=== PATIENT | female | born 1965 | race African-American/Black ===

== ENCOUNTER 2017-07-04 18:01 | Inpatient (IN) | payer OTHER ==
[~2017-07-04] VITALS: Ht 167.6 cm; Wt 65.3 kg
[~2017-07-04 18:01] MED LIST: DOCU-138 PO; DULO60CA44 PO; GABA300C PO; INSU100C3 SQ; LEVVL SQ; LIP40 PO; LOSA50TA20 PO; TEMA30CA PO; TRAZ-129 PO
[2017-07-04] MEDS ORDERED: ONDANSETRON HCL 4MG/2ML VIAL IV STA (19:15)
[2017-07-04] MEDS ORDERED: ACETAMINOPHEN 325MG TABLET PO STA (19:15)
[2017-07-04] MEDS ORDERED: SODIUM CHLORIDE 0.9% 1000ML BAG (SEPSIS BOLUS) IV ONE (19:15)
[2017-07-04] MEDS ORDERED: LEVOFLOXACIN 750MG PREMIX 150 ML IV ONE (19:15)
[2017-07-04] MEDS ORDERED: FENTANYL CITRATE/PF 50MCG/ML 2ML VIAL IV NR (19:30)
[2017-07-04 19:50] LABS: HEMATOCRIT. 35.3 % (36.0-48.0); HEMOGLOBIN. 11.8 g/dL (12.0-16.0); MEAN CORPUSCULAR HEMOGLOBIN 30.1 pg (28.0-32.0); MEAN CORPUSCULAR VOLUME 89.9 fL (81.0-99.0); MEAN PLATELET VOLUME 8.4 fl (7.4-10.4); PLATELET 284 x1000/uL (130-400); RED BLOOD CELL COUNT 3.93 mill/uL (4.2-5.4)
[2017-07-04 19:56] LABS: CARBON DIOXIDE 25 mEq/L (21-32); CHLORIDE 105 mEq/L (98-107)
[2017-07-04 19:57] LABS: PROTHROMBIN TIME 10.8 sec (9.4-11.6)
[2017-07-04 20:00] LABS: BG BASE EXCESS 1.5 mmol/L (-2.0-2.0); BG CARBOXYHEMOGLOBIN 0.4 % (0.5-1.5); BG FRACTION INSPIRED OXYGEN 21; BG HCO3 ACT 24.5 mmol/L (22.0-26.0); BG METHEMOGLOBIN 0.3 % (0.0-1.5); BG OXYHEMOGLOBIN 97.3 % (94.0-97.0); BG PCO2 33.5 mmHg (35.0-45.0); BG PH 7.482 (7.350-7.450); BG PO2 99.4 mmHg (75.0-100.0); BG SAMPLE SITE RIGHT RADIAL; BG TOTAL HEMOGLOBIN 12.1 g/dL (12.0-18.0); BG VENT MODE ROOM AIR
[2017-07-04 20:02] LABS: BETA HYDROXYBUTYRATE 0.1 mMol/L (0.0-0.3)
[2017-07-04 20:03] LABS: TROPONIN I < 0.02 ng/mL (0.00-0.04)
[2017-07-04 21:35] LABS: PLATELET ESTIMATE NORMAL
[2017-07-04 23:11] LABS: CLARITY URINE CLOUDY (CLEAR); COLOR URINE YELLOW (YELLOW); GLUCOSE URINE 3+ (NEGATIVE); KETONES URINE TRACE (NEGATIVE); LEUKOCYTE ESTERASE URINE 1+ (NEGATIVE); NITRITE URINE NEGATIVE (NEGATIVE); OCCULT BLOOD URINE 2+ (NEGATIVE); PH URINE 5.5 (4.5-8.0); PROTEIN URINE 4+ (NEGATIVE); SPECIFIC GRAVITY URINE 1.023 (1.005-1.030); UROBILINOGEN URINE 0.2 E.U./dL (0.2-1.0)
[2017-07-05 03:45] VITALS: BP 118/71
[2017-07-05 04:00] VITALS: BP 118/71
[2017-07-05] MEDS ORDERED: DULO30CA2 PO (04:18)
[2017-07-05] MEDS ORDERED: CLON1TAB4 PO (04:20)
[2017-07-05] MEDS ORDERED: OXYB5TAB11 PO (04:22)
[2017-07-05] MEDS ORDERED: DEXTROSE 50% WATER 50ML SYRINGE IV PRN (04:30)
[2017-07-05] MEDS ORDERED: SODIUM CHLORIDE 0.9% 1,000 ML IV SCH (04:30)
[2017-07-05] MEDS ORDERED: KETOROLAC 30MG/ML VIAL IV PRN (04:30)
[2017-07-05] MEDS ORDERED: ONDANSETRON HCL 4MG/2ML VIAL IV PRN (04:30)
[2017-07-05] MEDS ORDERED: CEFEPIME 1,000 MG in DEXTROSE 5% WATER 50 ML IV SCH (06:00)
[2017-07-05] MEDS: BLOOD SUGAR DIAGNOSTIC STRIP TEST SCH ×4 (06:12→20:45)
[2017-07-05] MEDS: INSULIN LISPRO 100 UNITS/ML SUBCUT SCH ×5 (06:51→21:24)
[2017-07-05 08:00] VITALS: BP 139/74
[2017-07-05] MEDS: CEFEPIME 1,000 MG in DEXTROSE 5% WATER 50 ML IV SCH ×2 (09:20→21:27)
[2017-07-05] MEDS: SODIUM CHLORIDE 0.9% 1,000 ML IV SCH ×2 (09:21→21:10)
[2017-07-05 12:28] VITALS: BP 125/97
[2017-07-05 12:40] LABS: HEMATOCRIT. 31.2 % (36.0-48.0); HEMOGLOBIN. 10.2 g/dL (12.0-16.0); MEAN CORPUSCULAR HEMOGLOBIN 29.4 pg (28.0-32.0); MEAN CORPUSCULAR VOLUME 90.2 fL (81.0-99.0); MEAN PLATELET VOLUME 8.6 fl (7.4-10.4); PLATELET 228 x1000/uL (130-400); RED BLOOD CELL COUNT 3.46 mill/uL (4.2-5.4); RED CELL DISTRIBUTION WIDTH 13.9 % (11.6-14.6)
[2017-07-05 14:55] LABS: PLATELET ESTIMATE NORMAL
[2017-07-05 16:00] VITALS: BP 102/65
[2017-07-05] MEDS: GABAPENTIN 300MG CAPSULE PO SCH (17:40)
[2017-07-05] MEDS: CLONAZEPAM 1MG TABLET PO SCH (17:40)
[2017-07-05] MEDS: DOCUSATE SODIUM 100MG CAPSULE PO SCH (17:41)
[2017-07-05 20:00] VITALS: BP 136/84
[2017-07-05] MEDS ORDERED: HYDR-4134 PO (20:00)
[2017-07-05] MEDS ORDERED: TAMS0.4C31 PO (20:01)
[2017-07-05] MEDS ORDERED: ZOLP10TA6 PO (20:03)
[2017-07-05] MEDS ORDERED: METO10TA3 PO (20:06)
[2017-07-05] MEDS: ACETAMINOPHEN 325MG TABLET PO PRN (21:09)
[2017-07-05] MEDS: ATORVASTATIN CALCIUM 40MG TABLET PO SCH (21:10)
[2017-07-05] MEDS: TRAZODONE HCL 50MG TABLET PO SCH (21:11)
[2017-07-05] MEDS: INSULIN DETEMIR UD 100 UNITS/ML SYR SUBCUT SCH (21:25)
[2017-07-06] VITALS: BP 92/59
[2017-07-06 04:00] VITALS: BP 117/77
[2017-07-06] MEDS: SODIUM CHLORIDE 0.9% 1,000 ML IV SCH ×3 (04:10→23:55)
[2017-07-06] MEDS: BLOOD SUGAR DIAGNOSTIC STRIP TEST SCH ×4 (06:50→21:01)
[2017-07-06] MEDS: INSULIN LISPRO 100 UNITS/ML SUBCUT SCH ×6 (06:53→21:21)
[2017-07-06 07:02] LABS: BASOPHILS % 0.5 % (0.0-2.0); EOSINOPHILS % 0.8 % (0.0-5.0); HEMATOCRIT. 31.3 % (36.0-48.0); HEMOGLOBIN. 10.2 g/dL (12.0-16.0); LYMPHOCYTES % 9.1 % (20.0-50.0); MEAN CORPUSCULAR HEMOGLOBIN 29.5 pg (28.0-32.0); MEAN CORPUSCULAR VOLUME 90.4 fL (81.0-99.0); MEAN PLATELET VOLUME 8.9 fl (7.4-10.4); MONOCYTES % 5.3 % (2.0-8.0); NEUTROPHILS % 84.3 % (40.0-76.0); PLATELET 225 x1000/uL (130-400); RED BLOOD CELL COUNT 3.46 mill/uL (4.2-5.4)
[2017-07-06 08:00] VITALS: BP 118/69
[2017-07-06] MEDS: GABAPENTIN 300MG CAPSULE PO SCH ×3 (10:02→16:50)
[2017-07-06] MEDS: CEFEPIME 1,000 MG in DEXTROSE 5% WATER 50 ML IV SCH ×2 (10:02→21:04)
[2017-07-06] MEDS: DULOXETINE HCL 30MG DR CAPSULE PO SCH (10:02)
[2017-07-06] MEDS: DOCUSATE SODIUM 100MG CAPSULE PO SCH ×2 (10:02→16:50)
[2017-07-06] MEDS: INSULIN DETEMIR UD 100 UNITS/ML SYR SUBCUT SCH ×2 (10:05→22:03)
[2017-07-06 12:00] VITALS: BP 142/88
[2017-07-06 16:00] VITALS: BP 145/88
[2017-07-06] MEDS: CLONAZEPAM 1MG TABLET PO SCH (16:50)
[2017-07-06 20:00] VITALS: BP 146/88
[2017-07-06] MEDS: TRAZODONE HCL 50MG TABLET PO SCH (21:04)
[2017-07-06] MEDS: ACETAMINOPHEN 325MG TABLET PO PRN (21:04)
[2017-07-06] MEDS: ATORVASTATIN CALCIUM 40MG TABLET PO SCH (21:04)
[2017-07-07] VITALS: BP 118/71
[2017-07-07 04:00] VITALS: BP 143/89
[2017-07-07 06:05] LABS: BASOPHILS % 0.3 % (0.0-2.0); EOSINOPHILS % 2.5 % (0.0-5.0); HEMATOCRIT. 31.9 % (36.0-48.0); HEMOGLOBIN. 10.5 g/dL (12.0-16.0); LYMPHOCYTES % 18.9 % (20.0-50.0); MEAN CORPUSCULAR HEMOGLOBIN 29.7 pg (28.0-32.0); MEAN CORPUSCULAR VOLUME 90.5 fL (81.0-99.0); MEAN PLATELET VOLUME 8.6 fl (7.4-10.4); MONOCYTES % 9.1 % (2.0-8.0); NEUTROPHILS % 69.2 % (40.0-76.0); PLATELET 248 x1000/uL (130-400); RED BLOOD CELL COUNT 3.53 mill/uL (4.2-5.4); RED CELL DISTRIBUTION WIDTH 13.9 % (11.6-14.6)
[2017-07-07] MEDS: INSULIN LISPRO 100 UNITS/ML SUBCUT SCH ×6 (06:26→16:58)
[2017-07-07] MEDS: BLOOD SUGAR DIAGNOSTIC STRIP TEST SCH ×3 (06:26→16:29)
[2017-07-07 08:00] VITALS: BP 139/87
[2017-07-07] MEDS: DOCUSATE SODIUM 100MG CAPSULE PO SCH ×2 (08:48→16:56)
[2017-07-07] MEDS: CEFEPIME 1,000 MG in DEXTROSE 5% WATER 50 ML IV SCH (08:48)
[2017-07-07] MEDS: GABAPENTIN 300MG CAPSULE PO SCH ×3 (08:48→16:55)
[2017-07-07] MEDS: DULOXETINE HCL 30MG DR CAPSULE PO SCH (08:48)
[2017-07-07] MEDS: INSULIN DETEMIR UD 100 UNITS/ML SYR SUBCUT SCH (10:15)
[2017-07-07] MEDS: SODIUM CHLORIDE 0.9% 1,000 ML IV SCH (10:16)
[2017-07-07 12:00] VITALS: BP 158/89
[2017-07-07 16:00] VITALS: BP 177/106
[2017-07-07] MEDS ORDERED: HYDRALAZINE 20MG/ML VIAL IV NR (16:00)
[2017-07-07] MEDS: CLONAZEPAM 1MG TABLET PO SCH (16:56)
[2017-07-07 17:09] VITALS: BP 142/78
== END 2017-07-07 18:20 | disposition home or self-care (01) | DRG 720 ==
LOC: ER 18:01 → EDBEDREQ 19:41 → 5WST 07-05 00:46 → EDBEDREQ 07-05 00:47 → EDBEDREQSVC 07-05 00:47 → ENRESERV 07-05 01:19
PROVIDERS: ADMIT Internal Medicine; ATTEND Internal Medicine
DX: A41.9 Sepsis, unspecified organism (principal); N17.0 Acute kidney failure with tubular necrosis; I10 Essential (primary) hypertension; J44.9 Chronic obstructive pulmonary disease, unspecified; N12 Tubulo-interstitial nephritis, not specified as acute or chronic; B96.89 Other specified bacterial agents as the cause of diseases classified elsewhere; E11.9 Type 2 diabetes mellitus without complications; N39.0 Urinary tract infection, site not specified; I25.10 Atherosclerotic heart disease of native coronary artery without angina pectoris; I25.2 Old myocardial infarction; Z88.6 Allergy status to analgesic agent; Z79.4 Long term (current) use of insulin; Z79.899 Other long term (current) drug therapy; E44.0 Moderate protein-calorie malnutrition
CPT/HCPCS: 36415; 36600; 71010; 74176; 80048; 80053; 81001; 82010; 82375; 82805; 82962; 83605; 84484; 85025; 85610; 87040; 87077; 87086; 87186; 87804; 93005; 93970; 96361; 96365; 96375; 99285; J0360; J0692; J1815; J1885; J1956; J2405; J3010; J7030; J7060

== ENCOUNTER 2017-09-11 19:37 | Inpatient (IN) | payer MEDICAID, OTHER ==
[~2017-09-11] VITALS: Ht 161.3 cm; Wt 66.2 kg
[~2017-09-11 19:37] MED LIST changes: +CLON1TAB4 PO; +DULO30CA2 PO; -DULO60CA44 PO; +HYDR-4134 PO; +METO10TA3 PO; +OXYB5TAB11 PO; +TAMS0.4C31 PO; +ZOLP10TA6 PO
[2017-09-11] MEDS ORDERED: SODIUM CHLORIDE 0.9% 1,000 ML IV ONE (21:21)
[2017-09-11] MEDS ORDERED: ONDANSETRON HCL 4MG/2ML VIAL IV ONE (21:30)
[2017-09-11] MEDS ORDERED: FENTANYL CITRATE/PF 50MCG/ML 2ML VIAL IV ONE (21:30)
[2017-09-11 21:45] LABS: HEMATOCRIT. 38.7 % (36.0-48.0); HEMOGLOBIN. 12.4 g/dL (12.0-16.0); MEAN CORPUSCULAR HEMOGLOBIN 30.3 pg (28.0-32.0); MEAN CORPUSCULAR VOLUME 94.6 fL (81.0-99.0); MEAN PLATELET VOLUME 8.8 fl (7.4-10.4); PLATELET 384 x1000/uL (130-400); RED BLOOD CELL COUNT 4.09 mill/uL (4.2-5.4); RED CELL DISTRIBUTION WIDTH 14.6 % (11.6-14.6)
[2017-09-11 21:49] LABS: HCG SCREEN NEGATIVE
[2017-09-11 22:02] LABS: AMYLASE 41 IU/L (25-115); CARBON DIOXIDE 13 mEq/L (21-32); CHLORIDE 99 mEq/L (98-107); TROPONIN I 0.02 ng/mL (0.00-0.04)
[2017-09-11 22:02] LABS: BG BASE EXCESS -14.3 mmol/L (-2.0-2.0); BG CARBOXYHEMOGLOBIN 0.1 % (0.5-1.5); BG DEOXYHEMOGLOBIN 2.9 % (0.0-5.0); BG FRACTION INSPIRED OXYGEN 21; BG HCO3 ACT 11.3 mmol/L (22.0-26.0); BG METHEMOGLOBIN 0.6 % (0.0-1.5); BG OXYGEN SATURATION 97.1 % (92.0-98.5); BG OXYHEMOGLOBIN 96.4 % (94.0-97.0); BG PCO2 26.4 mmHg (35.0-45.0); BG PH 7.249 (7.350-7.450); BG PO2 101.5 mmHg (75.0-100.0); BG SAMPLE SITE RIGHT BRACHIAL; BG TOTAL HEMOGLOBIN 13.2 g/dL (12.0-18.0); BG VENT MODE ROOM AIR
[2017-09-11 22:06] LABS: BETA HYDROXYBUTYRATE 8.2 mMol/L (0.0-0.3)
[2017-09-11 22:50] LABS: CLARITY URINE CLEAR (CLEAR); COLOR URINE YELLOW (YELLOW); KETONES URINE 4+ (NEGATIVE); LEUKOCYTE ESTERASE URINE NEGATIVE (NEGATIVE); NITRITE URINE NEGATIVE (NEGATIVE); OCCULT BLOOD URINE 1+ (NEGATIVE); PROTEIN URINE NEGATIVE (NEGATIVE); SPECIFIC GRAVITY URINE 1.026 (1.005-1.030); UROBILINOGEN URINE 0.2 E.U./dL (0.2-1.0)
[2017-09-11 22:53] LABS: PLATELET ESTIMATE NORMAL
[2017-09-11] MEDS ORDERED: SODIUM CHLORIDE 0.9% 1,000 ML IV STA (22:59)
[2017-09-12] VITALS (8 sets, daily range): BP systolic 118–158; BP diastolic 67–107
[2017-09-12] MEDS ORDERED: INSULIN REGULAR (DRIP) 100 UNITS in SODIUM CHLORIDE 0.9% 100 ML IV ONE (00:30)
[2017-09-12 00:37] LABS: CARBON DIOXIDE 11 mEq/L (21-32); CHLORIDE 101 mEq/L (98-107); PHOSPHORUS 6.4 mg/dL (2.5-4.9)
[2017-09-12] MEDS ORDERED: SODIUM CHLORIDE 0.9% 1,000 ML IV ONE (00:39)
[2017-09-12] MEDS ORDERED: ONDANSETRON HCL 4MG/2ML VIAL IV ONE (00:45)
[2017-09-12 02:17] LABS: PHOSPHORUS 6.3 mg/dL (2.5-4.9)
[2017-09-12] MEDS ORDERED: INSULIN REGULAR (DRIP) 100 UNITS in SODIUM CHLORIDE 0.9% 99 ML IV SCH (02:30)
[2017-09-12 04:32] LABS: PHOSPHORUS 4.2 mg/dL (2.5-4.9)
[2017-09-12] MEDS ORDERED: SODIUM CHLORIDE 0.45% 1,000 ML IV SCH (06:16)
[2017-09-12] MEDS ORDERED: HYDROCODONE/ACETAMINOPHEN 10/325MG TABLET PO PRN (06:30)
[2017-09-12] MEDS ORDERED: ACETAMINOPHEN 325MG TABLET PO PRN (06:30)
[2017-09-12] MEDS ORDERED: MAGNESIUM/ALUMINUM HYDROXIDE/SIMETHICONE 30ML UDC PO PRN (06:30)
[2017-09-12] MEDS ORDERED: LORAZEPAM 2MG/ML CPJ IV PRN (06:30)
[2017-09-12] MEDS ORDERED: IPRATROPIUM/ALBUTEROL 0.5-3(2.5)MG/3ML NEB INH PRN (06:30)
[2017-09-12] MEDS: CLONIDINE 0.1MG TABLET PO PRN ×2 (11:28→19:05)
[2017-09-12] MEDS ORDERED: DIPHENHYDRAMINE 50MG/ML VIAL IV PRN (14:00)
[2017-09-12] MEDS ORDERED: NA PHOS,M-B/NA PHOS,DI-BA ENEMA 118ML PR PRN (14:00)
[2017-09-12] MEDS: SODIUM CHLORIDE 0.45% 1,000 ML IV SCH ×2 (14:04→22:21)
[2017-09-12] MEDS ORDERED: LORAZEPAM 0.5MG TABLET PO PRN (14:30)
[2017-09-12] MEDS: ASPIRIN 81MG EC TABLET PO SCH (14:57)
[2017-09-12] MEDS: HYDRALAZINE HCL 50MG TABLET PO SCH ×2 (14:57→22:21)
[2017-09-12] MEDS: LOSARTAN POTASSIUM 50 MG TABLET PO SCH (14:57)
[2017-09-12] MEDS: ENOXAPARIN 40MG/0.4ML SYR SUBCUT SCH (14:59)
[2017-09-12] MEDS ORDERED: GUAIFENESIN 200MG/10ML SUGAR FREE UDC PO PRN (15:00)
[2017-09-12] MEDS ORDERED: LEVOFLOXACIN 500MG PREMIX 100 ML IV NR (16:00)
[2017-09-12] MEDS: DOCUSATE SODIUM 100MG CAPSULE PO PRN (16:44)
[2017-09-12] MEDS ORDERED: IPRATROPIUM/ALBUTEROL 0.5-3(2.5)MG/3ML NEB HHN PRN (17:30)
[2017-09-12] MEDS ORDERED: LEVOFLOXACIN 250MG PREMIX 50 ML IV SCH (18:00)
[2017-09-12] MEDS ORDERED: DEXTROSE 50% WATER 50ML SYRINGE IV PRN (18:30)
[2017-09-12] MEDS: ONDANSETRON HCL 4MG/2ML VIAL IV PRN (19:04)
[2017-09-12] MEDS: INSULIN LISPRO 100 UNITS/ML SUBCUT SCH ×2 (19:06→22:22)
[2017-09-12] MEDS: IPRATROPIUM/ALBUTEROL 0.5-3(2.5)MG/3ML NEB HHN SCH (19:47)
[2017-09-12] MEDS: BUDESONIDE 0.5MG/2ML NEB HHN SCH (20:13)
[2017-09-12] MEDS: BLOOD SUGAR DIAGNOSTIC STRIP TEST SCH (22:15)
[2017-09-12] MEDS: ATORVASTATIN CALCIUM 20MG TABLET PO SCH (22:21)
[2017-09-13] VITALS (15 sets, daily range): BP systolic 101–156; BP diastolic 60–94
[2017-09-13] MEDS: HYDRALAZINE HCL 50MG TABLET PO SCH ×3 (06:34→21:41)
[2017-09-13] MEDS: SODIUM CHLORIDE 0.45% 1,000 ML IV SCH ×3 (06:34→23:55)
[2017-09-13] MEDS: DOCUSATE SODIUM 100MG CAPSULE PO PRN (06:35)
[2017-09-13] MEDS: BUDESONIDE 0.5MG/2ML NEB HHN SCH ×2 (07:42→22:06)
[2017-09-13] MEDS: IPRATROPIUM/ALBUTEROL 0.5-3(2.5)MG/3ML NEB HHN SCH ×4 (07:43→21:59)
[2017-09-13] MEDS: BLOOD SUGAR DIAGNOSTIC STRIP TEST SCH ×4 (07:55→21:00)
[2017-09-13] MEDS: ASPIRIN 81MG EC TABLET PO SCH (09:06)
[2017-09-13] MEDS: ENOXAPARIN 40MG/0.4ML SYR SUBCUT SCH (09:06)
[2017-09-13] MEDS: LOSARTAN POTASSIUM 50 MG TABLET PO SCH (09:06)
[2017-09-13] MEDS: LACTULOSE 20G/30ML UDC PO PRN (09:06)
[2017-09-13] MEDS: INSULIN DETEMIR UD 100 UNITS/ML SYR SUBCUT SCH (09:08)
[2017-09-13] MEDS: INSULIN LISPRO 100 UNITS/ML SUBCUT SCH ×4 (09:08→21:47)
[2017-09-13 11:37] LABS: BASOPHILS % 0.6 % (0.0-2.0); EOSINOPHILS % 0.2 % (0.0-5.0); HEMATOCRIT. 31.9 % (36.0-48.0); HEMOGLOBIN. 10.5 g/dL (12.0-16.0); MEAN CORPUSCULAR HEMOGLOBIN 30.4 pg (28.0-32.0); MEAN CORPUSCULAR VOLUME 92.7 fL (81.0-99.0); MEAN PLATELET VOLUME 8.5 fl (7.4-10.4); MONOCYTES % 2.7 % (2.0-8.0); NEUTROPHILS % 81.5 % (40.0-76.0); PLATELET 296 x1000/uL (130-400); RED BLOOD CELL COUNT 3.44 mill/uL (4.2-5.4); RED CELL DISTRIBUTION WIDTH 14.7 % (11.6-14.6)
[2017-09-13 12:10] LABS: CARBON DIOXIDE 17 mEq/L (21-32); CHLORIDE 104 mEq/L (98-107); HDL CHOLESTEROL 70 mg/dL (40-59); LDL CHOLESTEROL 128 mg/dL (5-100); T4 FREE 1.22 ng/dL (0.76-1.46)
[2017-09-13] MEDS: DILTIAZEM HCL 60MG TABLET PO SCH ×2 (14:21→21:42)
[2017-09-13] MEDS ORDERED: MAGNESIUM 1 G PREMIX 100 ML IV NR (14:30)
[2017-09-13] MEDS ORDERED: LEVOFLOXACIN 250MG PREMIX 50 ML IV SCH ×2 (16:00)
[2017-09-13] MEDS: ATORVASTATIN CALCIUM 20MG TABLET PO SCH (21:41)
[2017-09-14] VITALS (9 sets, daily range): BP systolic 137–187; BP diastolic 63–105
[2017-09-14 06:06] LABS: BASOPHILS % 0.7 % (0.0-2.0); HEMATOCRIT. 31.7 % (36.0-48.0); HEMOGLOBIN. 10.6 g/dL (12.0-16.0); LYMPHOCYTES % 37.3 % (20.0-50.0); MEAN CORPUSCULAR HEMOGLOBIN 30.7 pg (28.0-32.0); MEAN CORPUSCULAR VOLUME 91.6 fL (81.0-99.0); MEAN PLATELET VOLUME 8.8 fl (7.4-10.4); MONOCYTES % 4.3 % (2.0-8.0); NEUTROPHILS % 56.7 % (40.0-76.0); PLATELET 287 x1000/uL (130-400); RED BLOOD CELL COUNT 3.47 mill/uL (4.2-5.4); RED CELL DISTRIBUTION WIDTH 14.9 % (11.6-14.6)
[2017-09-14] MEDS: CLONIDINE 0.1MG TABLET PO PRN (06:24)
[2017-09-14] MEDS: HYDRALAZINE HCL 50MG TABLET PO SCH ×2 (06:24→14:14)
[2017-09-14] MEDS: DILTIAZEM HCL 60MG TABLET PO SCH ×2 (06:24→14:14)
[2017-09-14] MEDS: SODIUM CHLORIDE 0.45% 1,000 ML IV SCH ×2 (06:25→14:04)
[2017-09-14 06:30] LABS: CHLORIDE 103 mEq/L (98-107)
[2017-09-14 06:47] LABS: CARBON DIOXIDE 21 mEq/L (21-32)
[2017-09-14] MEDS: INSULIN LISPRO 100 UNITS/ML SUBCUT SCH ×2 (06:59→13:40)
[2017-09-14] MEDS: BLOOD SUGAR DIAGNOSTIC STRIP TEST SCH ×2 (06:59→12:45)
[2017-09-14] MEDS: IPRATROPIUM/ALBUTEROL 0.5-3(2.5)MG/3ML NEB HHN SCH ×3 (07:56→15:39)
[2017-09-14] MEDS: BUDESONIDE 0.5MG/2ML NEB HHN SCH (07:56)
[2017-09-14] MEDS: LACTULOSE 20G/30ML UDC PO PRN (09:18)
[2017-09-14] MEDS: DOCUSATE SODIUM 100MG CAPSULE PO PRN (09:18)
[2017-09-14] MEDS: LOSARTAN POTASSIUM 50 MG TABLET PO SCH (09:19)
[2017-09-14] MEDS: ASPIRIN 81MG EC TABLET PO SCH (09:19)
[2017-09-14] MEDS: ENOXAPARIN 40MG/0.4ML SYR SUBCUT SCH (09:20)
[2017-09-14] MEDS: INSULIN DETEMIR UD 100 UNITS/ML SYR SUBCUT SCH (09:22)
[2017-09-14] MEDS: ONDANSETRON HCL 4MG/2ML VIAL IV PRN (09:53)
[2017-09-14] MEDS ORDERED: LEVOFLOXACIN 500MG PREMIX 100 ML IV SCH (14:00)
[2017-09-14] MEDS ORDERED: AMLODIPINE 5MG TABLET PO SCH (21:00)
== END 2017-09-14 16:30 | disposition home or self-care (01) | DRG 420 ==
LOC: ER 20:07 → 5EST 09-12 00:57 → EDBEDREQ 09-12 01:25 → EDBEDREQSVC 09-12 12:50 → EDBEDREQTM 09-12 12:50 → ENRESERV 09-12 12:53
PROVIDERS: ADMIT Internal Medicine; ATTEND Internal Medicine
DX: E11.10 Type 2 diabetes mellitus with ketoacidosis without coma (principal); E87.2 Acidosis; E87.0 Hyperosmolality and hypernatremia; I13.0 Hypertensive heart and chronic kidney disease with heart failure and stage 1 through stage 4 chronic kidney disease, or unspecified chronic kidney disease; I50.9 Heart failure, unspecified; K31.84 Gastroparesis; J70.5 Respiratory conditions due to smoke inhalation; N18.3 Chronic kidney disease, stage 3 (moderate); E78.5 Hyperlipidemia, unspecified; E78.00 Pure hypercholesterolemia, unspecified; E11.22 Type 2 diabetes mellitus with diabetic chronic kidney disease; E11.43 Type 2 diabetes mellitus with diabetic autonomic (poly)neuropathy; E86.0 Dehydration; I25.10 Atherosclerotic heart disease of native coronary artery without angina pectoris; F41.9 Anxiety disorder, unspecified; J44.9 Chronic obstructive pulmonary disease, unspecified; N39.0 Urinary tract infection, site not specified; T59.811A Toxic effect of smoke, accidental (unintentional), initial encounter; Z79.899 Other long term (current) drug therapy; Z79.4 Long term (current) use of insulin; Z82.49 Family history of ischemic heart disease and other diseases of the circulatory system; I25.2 Old myocardial infarction; Z83.3 Family history of diabetes mellitus; Z88.6 Allergy status to analgesic agent; Y92.89 Other specified places as the place of occurrence of the external cause
CPT/HCPCS: 36415; 36600; 71010; 76700; 80048; 80053; 80061; 81001; 82010; 82150; 82375; 82805; 82962; 83036; 83690; 83735; 84100; 84439; 84443; 84484; 84703; 85025; 93005; 93306; 94640; 94664; 96361; 96365; 96366; 96375; 96376; 99291; J1650; J1815; J1956; J2405; J3010; J3475; J7030; J7050; J7620; J7626

== ENCOUNTER 2019-03-03 17:42 | Emergency (ER) | payer MEDICAID ==
[~2019-03-03] VITALS: Ht 167.6 cm; Wt 73.0 kg
[~2019-03-03 17:42] MED LIST changes: +CLON1TAB12 PO; -CLON1TAB4 PO; -LOSA50TA20 PO; +LOSA50TA41 PO; -TRAZ-129 PO; +TRAZ-251 PO
[2019-03-03] MEDS ORDERED: MORPHINE SULFATE 4 MG/ML CPJ (NOT FOR IM USE) IV STA (18:09)
[2019-03-03] MEDS ORDERED: DIPHENHYDRAMINE 50MG/ML VIAL IV ONE (18:15)
[2019-03-03 19:07] LABS: BASOPHILS % 0.6 % (0.0-2.0); EOSINOPHILS % 1.1 % (0.0-5.0); HEMATOCRIT. 37.2 % (36.0-48.0); HEMOGLOBIN. 12.8 g/dL (12.0-16.0); LYMPHOCYTES % 16.9 % (20.0-50.0); MEAN CORPUSCULAR HEMOGLOBIN 31.3 pg (28.0-32.0); MEAN CORPUSCULAR VOLUME 91.2 fL (81.0-99.0); MEAN PLATELET VOLUME 8.1 fl (7.4-10.4); MONOCYTES % 3.3 % (2.0-8.0); NEUTROPHILS % 78.1 % (40.0-76.0); PLATELET 321 x1000/uL (130-400); RED BLOOD CELL COUNT 4.08 mill/uL (4.2-5.4); RED CELL DISTRIBUTION WIDTH 13.6 % (11.6-14.6)
[2019-03-03 19:08] LABS: CHLORIDE 105 mEq/L (98-107)
[2019-03-03 21:21] VITALS: BP 163/90
== END 2019-03-03 21:22 | disposition home or self-care (01) ==
LOC: ER 17:50
DX: E11.649 Type 2 diabetes mellitus with hypoglycemia without coma (principal); J44.9 Chronic obstructive pulmonary disease, unspecified; I10 Essential (primary) hypertension; Z86.73 Personal history of transient ischemic attack (TIA), and cerebral infarction without residual deficits; Z79.4 Long term (current) use of insulin; Z88.5 Allergy status to narcotic agent
CPT/HCPCS: 36415; 73502; 80053; 82962; 85025; 93005; 96374; 96375; 99284; J1200; J2270

== ENCOUNTER 2019-10-19 18:05 | Inpatient (IN) | payer MEDICAID ==
[~2019-10-19] VITALS: Ht 161.3 cm; Wt 67.2 kg
[~2019-10-19 18:05] MED LIST changes: -HYDR-4134 PO; -LOSA50TA41 PO; -OXYB5TAB11 PO; +OXYB5TAB16 PO
[2019-10-19] MEDS ORDERED: ONDANSETRON HCL 4MG/2ML INJ IV STA (18:47)
[2019-10-19] MEDS ORDERED: PIPERACILLIN/TAZ 3.375G PREMIX 50 ML IV ONE (19:00)
[2019-10-19] MEDS ORDERED: SODIUM CHLORIDE 0.9% 1000ML BAG (SEPSIS BOLUS) IV ONE (19:00)
[2019-10-19] MEDS ORDERED: VANCOMYCIN 1 G PREMIX 200 ML IV ONE (19:00)
[2019-10-19 19:08] LABS: BASOPHILS % 0.7 % (0.0-2.0); EOSINOPHILS % 0.7 % (0.0-5.0); HEMATOCRIT. 38.9 % (36.0-48.0); HEMOGLOBIN. 12.9 g/dL (12.0-16.0); MEAN CORPUSCULAR VOLUME 90.4 fL (81.0-99.0); MEAN PLATELET VOLUME 8.5 fl (7.4-10.4); MONOCYTES % 6.7 % (2.0-8.0); NEUTROPHILS % 82.9 % (40.0-76.0); PLATELET 305 x1000/uL (130-400); RED BLOOD CELL COUNT 4.31 mill/uL (4.2-5.4); RED CELL DISTRIBUTION WIDTH 13.4 % (11.6-14.6)
[2019-10-19 19:11] LABS: PROTHROMBIN TIME 10.1 sec (9.6-11.0)
[2019-10-19 19:18] LABS: CHLORIDE 103 mEq/L (98-107)
[2019-10-19 20:45] LABS: CLARITY URINE CLEAR (CLEAR); COLOR URINE YELLOW (YELLOW); KETONES URINE 2+ (NEGATIVE); LEUKOCYTE ESTERASE URINE NEGATIVE (NEGATIVE); NITRITE URINE NEGATIVE (NEGATIVE); OCCULT BLOOD URINE 2+ (NEGATIVE); PROTEIN URINE 3+ (NEGATIVE); UROBILINOGEN URINE 0.2 E.U./dL (0.2-1.0)
[2019-10-19] MEDS ORDERED: ONDANSETRON HCL 4MG/2ML INJ IV ONE (21:00)
[2019-10-19] MEDS ORDERED: DIPHENHYDRAMINE 50MG/ML VIAL IV ONE (21:00)
[2019-10-19] MEDS ORDERED: MORPHINE SULFATE 4 MG/ML CPJ (NOT FOR IM USE) IV ONE (21:00)
[2019-10-20] VITALS (16 sets, daily range): BP systolic 86–190; BP diastolic 48–98
[2019-10-20] MEDS ORDERED: INSULIN REGULAR 0.5UNIT/ML SYR(NEO) IV ONE
[2019-10-20] MEDS ORDERED: INSULIN REGULAR (HUMULIN R) 300UNITS/3ML SUBCUT ONE (00:15)
[2019-10-20] MEDS ORDERED: DEXTROSE 50% WATER 50ML SYRINGE IV PRN (01:45)
[2019-10-20] MEDS: METOPROLOL TARTRATE 50MG TABLET PO SCH ×2 (04:15→21:00)
[2019-10-20] MEDS: BLOOD SUGAR DIAGNOSTIC STRIP TEST SCH ×4 (06:17→20:37)
[2019-10-20] MEDS: INSULIN LISPRO 100 UNITS/ML SUBCUT SCH ×5 (06:26→21:00)
[2019-10-20] MEDS: DULOXETINE HCL 30MG DR CAPSULE PO SCH (08:31)
[2019-10-20] MEDS: OXYBUTYNIN CHLORIDE 5MG TABLET PO SCH ×2 (08:31→17:05)
[2019-10-20] MEDS: ATORVASTATIN CALCIUM 40MG TABLET PO SCH (08:31)
[2019-10-20] MEDS: DOCUSATE SODIUM 100MG CAPSULE PO SCH ×2 (08:31→17:05)
[2019-10-20] MEDS: GABAPENTIN 300MG CAPSULE PO SCH ×3 (08:31→17:05)
[2019-10-20] MEDS ORDERED: INSULIN DETEMIR U SQ SCH (09:00)
[2019-10-20] MEDS ORDERED: INSULIN GLARGINE UD 100 UNITS/ML SYR SUBCUT SCH (09:00)
[2019-10-20] MEDS ORDERED: CLONIDINE 0.1MG TABLET PO PRN (09:30)
[2019-10-20] MEDS ORDERED: LABE200T28 PO (10:34)
[2019-10-20] MEDS ORDERED: AMLO10TA80 PO (10:34)
[2019-10-20] MEDS ORDERED: ASPI-1158 PO (10:34)
[2019-10-20] MEDS ORDERED: INSU100V36 SQ (10:34)
[2019-10-20] MEDS ORDERED: MONT10TA24 PO (10:34)
[2019-10-20] MEDS ORDERED: BUPR1PAT2 TP (10:34)
[2019-10-20] MEDS ORDERED: LOSA100T32 PO (10:34)
[2019-10-20] MEDS ORDERED: TAMS-11 PO (10:34)
[2019-10-20] MEDS: SODIUM CHLORIDE 0.9% 1,000 ML IV SCH ×2 (11:10→20:37)
[2019-10-20] MEDS: METOCLOPRAMIDE HCL 10MG/2ML VIAL IV SCH ×2 (12:26→17:04)
[2019-10-20] MEDS: ENOXAPARIN 40MG/0.4ML SYR SUBCUT SCH (12:52)
[2019-10-20 13:24] LABS: BASOPHILS % 0.6 % (0.0-2.0); EOSINOPHILS % 0.3 % (0.0-5.0); HEMATOCRIT. 31.6 % (36.0-48.0); HEMOGLOBIN. 10.5 g/dL (12.0-16.0); LYMPHOCYTES % 17.9 % (20.0-50.0); MEAN CORPUSCULAR HEMOGLOBIN 30.2 pg (28.0-32.0); MEAN CORPUSCULAR VOLUME 90.9 fL (81.0-99.0); MEAN PLATELET VOLUME 8.9 fl (7.4-10.4); MONOCYTES % 10.2 % (2.0-8.0); PLATELET 227 x1000/uL (130-400); RED BLOOD CELL COUNT 3.48 mill/uL (4.2-5.4); RED CELL DISTRIBUTION WIDTH 13.7 % (11.6-14.6)
[2019-10-20] MEDS ORDERED: CLONAZEPAM 1MG TABLET PO SCH (17:00)
[2019-10-20] MEDS ORDERED: SODIUM CHLORIDE 0.9% 1,000 ML IV SCH (18:45)
[2019-10-20] MEDS ORDERED: LEVOFLOXACIN 500MG PREMIX 100 ML IV NR (20:00)
[2019-10-20] MEDS ORDERED: ACETAMINOPHEN 325MG TABLET PO PRN (20:15)
[2019-10-20] MEDS ORDERED: ACETAMINOPHEN 650MG SUPP PR PRN (20:15)
[2019-10-20] MEDS ORDERED: ATORVASTATIN CALCIUM 40MG TABLET PO SCH (21:00)
[2019-10-20] MEDS: AMLODIPINE 5MG TABLET PO SCH (21:00)
[2019-10-20] MEDS: INSULIN GLARGINE UD 100 UNITS/ML SYR SUBCUT SCH (22:00)
[2019-10-21] VITALS (7 sets, daily range): BP systolic 120–166; BP diastolic 65–90
[2019-10-21] MEDS ORDERED: BUPR1PAT2 TP (05:59)
[2019-10-21] MEDS: METOCLOPRAMIDE HCL 10MG/2ML VIAL IV SCH ×3 (06:00→12:00)
[2019-10-21] MEDS: INSULIN LISPRO 100 UNITS/ML SUBCUT SCH ×6 (06:45→17:13)
[2019-10-21] MEDS: BLOOD SUGAR DIAGNOSTIC STRIP TEST SCH ×2 (06:54→11:45)
[2019-10-21 07:31] LABS: BASOPHILS % 0.6 % (0.0-2.0); EOSINOPHILS % 0.4 % (0.0-5.0); HEMATOCRIT. 30.3 % (36.0-48.0); HEMOGLOBIN. 10.7 g/dL (12.0-16.0); LYMPHOCYTES % 10.7 % (20.0-50.0); MEAN PLATELET VOLUME 8.7 fl (7.4-10.4); MONOCYTES % 6.4 % (2.0-8.0); NEUTROPHILS % 81.9 % (40.0-76.0); PLATELET 211 x1000/uL (130-400); RED BLOOD CELL COUNT 3.33 mill/uL (4.2-5.4); RED CELL DISTRIBUTION WIDTH 13.5 % (11.6-14.6)
[2019-10-21] MEDS: DULOXETINE HCL 30MG DR CAPSULE PO SCH ×2 (09:00→11:01)
[2019-10-21] MEDS: INSULIN GLARGINE UD 100 UNITS/ML SYR SUBCUT SCH (10:00)
[2019-10-21] MEDS: ENOXAPARIN 40MG/0.4ML SYR SUBCUT SCH (11:01)
[2019-10-21] MEDS: AMLODIPINE 5MG TABLET PO SCH (11:02)
[2019-10-21] MEDS: DOCUSATE SODIUM 100MG CAPSULE PO SCH ×2 (11:02→17:11)
[2019-10-21] MEDS: METOPROLOL TARTRATE 50MG TABLET PO SCH (11:03)
[2019-10-21] MEDS: OXYBUTYNIN CHLORIDE 5MG TABLET PO SCH ×2 (11:03→17:11)
[2019-10-21] MEDS: ATORVASTATIN CALCIUM 40MG TABLET PO SCH (11:03)
[2019-10-21] MEDS: SODIUM CHLORIDE 0.9% 1,000 ML IV SCH (11:04)
[2019-10-21] MEDS ORDERED: LEVOFLOXACIN 250MG PREMIX 50 ML IV SCH (20:00)
== END 2019-10-21 12:12 | disposition home or self-care (01) | DRG 720 ==
LOC: ER 18:19 → EDBEDREQTM 20:09 → EDBEDREQSVC 20:09 → EDBEDREQ 20:09 → 5WST 20:55 → EDBEDREQ 21:00 → ENRESERV 22:44
PROVIDERS: ADMIT Internal Medicine; ATTEND Internal Medicine
DX: A41.9 Sepsis, unspecified organism (principal); N17.0 Acute kidney failure with tubular necrosis; K31.84 Gastroparesis; E11.43 Type 2 diabetes mellitus with diabetic autonomic (poly)neuropathy; E11.65 Type 2 diabetes mellitus with hyperglycemia; E78.5 Hyperlipidemia, unspecified; E86.0 Dehydration; I10 Essential (primary) hypertension; J44.9 Chronic obstructive pulmonary disease, unspecified; K52.9 Noninfective gastroenteritis and colitis, unspecified; Z86.73 Personal history of transient ischemic attack (TIA), and cerebral infarction without residual deficits; Z88.5 Allergy status to narcotic agent; Z79.899 Other long term (current) drug therapy
CPT/HCPCS: 36415; 71045; 74176; 80048; 80053; 81003; 82962; 83605; 84145; 84484; 85025; 87804; 93005; 96365; 96366; 96367; 96372; 96375; 96376; 99285; J1200; J1650; J1815; J1956; J2270; J2405; J2543; J2765; J3370; J7030

== ENCOUNTER 2021-01-25 11:08 | Inpatient (IN) | payer MEDICAID ==
[~2021-01-25] VITALS: Ht 162.6 cm; Wt 67.6 kg
[~2021-01-25 11:08] MED LIST changes: +AMLO10TA80 PO; +ASPI-1406 PO; +BUPR1PAT2 TP; +INSU100V36 SQ; +LABE200T9 PO; +LOSA100T32 PO; +MONT10TA32 PO; +TAMS-11 PO; -TAMS0.4C31 PO; -TEMA30CA PO; -TRAZ-251 PO
[2021-01-25] MEDS ORDERED: SODIUM CHLORIDE 0.9% 1,000 ML IV ONE (11:30)
[2021-01-25] MEDS ORDERED: LABETALOL 5MG/ML SYR 20 MG/4 ML SYRINGE IV ONE (11:30)
[2021-01-25 11:53] LABS: BASOPHILS % 1.3 % (0.0-2.0); EOSINOPHILS % 0.8 % (0.0-5.0); HEMATOCRIT. 38.6 % (36.0-48.0); HEMOGLOBIN. 12.7 g/dL (12.0-16.0); LYMPHOCYTES % 15.5 % (20.0-50.0); MEAN CORPUSCULAR HEMOGLOBIN 31.2 pg (28.0-32.0); MEAN CORPUSCULAR VOLUME 94.8 fL (81.0-99.0); MEAN PLATELET VOLUME 9.3 fl (7.4-10.4); MONOCYTES % 1.8 % (2.0-8.0); NEUTROPHILS % 80.6 % (40.0-76.0); PLATELET 342 x1000/uL (130-400); RED BLOOD CELL COUNT 4.07 mill/uL (4.2-5.4); RED CELL DISTRIBUTION WIDTH 14.5 % (11.6-14.6)
[2021-01-25 12:11] LABS: BG BASE EXCESS -5.7 mmol/L (-2.0-2.0); BG CARBOXYHEMOGLOBIN 0.8 % (0.5-1.5); BG DEOXYHEMOGLOBIN 3.4 % (0.0-5.0); BG FRACTION INSPIRED OXYGEN 21; BG METHEMOGLOBIN 0.2 % (0.0-1.5); BG OXYGEN SATURATION 96.6 % (92.0-98.5); BG OXYHEMOGLOBIN 95.6 % (94.0-97.0); BG PCO2 39.9 mmHg (35.0-45.0); BG PH 7.318 (7.350-7.450); BG PO2 90.5 mmHg (75.0-100.0); BG SAMPLE SITE LEFT BRACHIAL; BG TOTAL HEMOGLOBIN 13.1 g/dL (12.0-18.0); BG VENT MODE ROOM AIR
[2021-01-25] MEDS ORDERED: LOSARTAN POTASSIUM 50 MG TABLET PO ONE (12:15)
[2021-01-25] MEDS ORDERED: INSULIN REGULAR (HUMULIN R) 300UNITS/3ML VIAL IV ONE (12:15)
[2021-01-25 12:22] LABS: CLARITY URINE CLEAR (CLEAR); COLOR URINE YELLOW (YELLOW); KETONES URINE 2+ (NEGATIVE); LEUKOCYTE ESTERASE URINE NEGATIVE (NEGATIVE); NITRITE URINE NEGATIVE (NEGATIVE); OCCULT BLOOD URINE TRACE (NEGATIVE); PROTEIN URINE 1+ (NEGATIVE); SPECIFIC GRAVITY URINE 1.026 (1.005-1.030); UROBILINOGEN URINE 0.2 E.U./dL (0.2-1.0)
[2021-01-25 12:36] LABS: PROTHROMBIN TIME 10.3 sec (9.6-11.0)
[2021-01-25 12:39] LABS: CHLORIDE 103 mEq/L (98-107)
[2021-01-25 12:46] LABS: ETHANOL BLOOD < 10 mg/dL
[2021-01-25 12:49] LABS: *BARBITURATES SCREEN URINE NEGATIVE (NEGATIVE)
[2021-01-25 12:50] LABS: *AMPHETAMINES SCREEN URINE NEGATIVE (NEGATIVE); *BENZODIAZEPINES SCREEN URINE NEGATIVE (NEGATIVE); *COCAINE SCREEN URINE NEGATIVE (NEGATIVE); METHADONE URINE SCREEN NEGATIVE (NEGATIVE); OPIATES URINE SCREEN PRESUMTIVE POSITIVE (NEGATIVE); PHENCYCLIDINE URINE SCREEN NEGATIVE (NEGATIVE)
[2021-01-25 12:51] LABS: CANNABINOID URINE SCREEN PRESUMTIVE POSITIVE (NEGATIVE)
[2021-01-25 13:02] LABS: BETA HYDROXYBUTYRATE 2.6 mMol/L (0.0-0.3)
[2021-01-25] MEDS ORDERED: ASPIRIN 81MG TABLET PO ONE (14:00)
[2021-01-25] MEDS ORDERED: CLONIDINE 0.2MG TABLET PO NR (18:25)
[2021-01-25 21:00] VITALS: BP 190/100
[2021-01-25 21:15] VITALS: BP 190/105
[2021-01-25] MEDS ORDERED: CLONIDINE 0.1MG TABLET PO PRN (21:45)
[2021-01-25] MEDS ORDERED: HYDRALAZINE 20MG/ML VIAL IV PRN (21:45)
[2021-01-25] MEDS ORDERED: DEXTROSE 50% WATER 50ML SYRINGE IV PRN (21:45)
[2021-01-25] MEDS ORDERED: ONDANSETRON HCL 4MG/2ML INJ IV PRN (21:45)
[2021-01-25] MEDS: BLOOD SUGAR DIAGNOSTIC STRIP TEST SCH (22:04)
[2021-01-25] MEDS: GABAPENTIN 300MG CAPSULE PO SCH (22:13)
[2021-01-25] MEDS: HYDRALAZINE HCL 50MG TABLET PO SCH (22:13)
[2021-01-25] MEDS: INSULIN LISPRO 100 UNITS/ML SUBCUT SCH (22:15)
[2021-01-25 22:46] VITALS: BP 171/88
[2021-01-25] MEDS: CLONAZEPAM 1MG TABLET PO SCH (23:26)
[2021-01-25] MEDS: INSULIN GLARGINE UD 100 UNITS/ML SYR SUBCUT SCH (23:27)
[2021-01-25 23:35] VITALS: BP 134/70
[2021-01-26] VITALS: BP 119/61
[2021-01-26] MEDS ORDERED: ZOLPIDEM TARTRATE 5MG TABLET PO PRN (02:15)
[2021-01-26] MEDS ORDERED: ONDANSETRON HCL 4MG/2ML INJ IV PRN (02:15)
[2021-01-26 04:00] VITALS: BP_SYST 116; BP_DIAS 58; BP_DIAS 82
[2021-01-26] MEDS: BLOOD SUGAR DIAGNOSTIC STRIP TEST SCH ×4 (06:02→21:31)
[2021-01-26] MEDS: GABAPENTIN 300MG CAPSULE PO SCH ×3 (06:22→22:45)
[2021-01-26] MEDS: METFORMIN HCL 500MG TABLET PO SCH ×2 (06:23→17:59)
[2021-01-26] MEDS: HYDRALAZINE HCL 50MG TABLET PO SCH ×3 (06:23→22:00)
[2021-01-26 06:44] LABS: BASOPHILS % 0.7 % (0.0-2.0); EOSINOPHILS % 1.3 % (0.0-5.0); HEMATOCRIT. 31.8 % (36.0-48.0); HEMOGLOBIN. 10.4 g/dL (12.0-16.0); LYMPHOCYTES % 31.2 % (20.0-50.0); MEAN CORPUSCULAR HEMOGLOBIN 30.6 pg (28.0-32.0); MEAN CORPUSCULAR VOLUME 93.3 fL (81.0-99.0); MEAN PLATELET VOLUME 9.3 fl (7.4-10.4); MONOCYTES % 6.7 % (2.0-8.0); NEUTROPHILS % 60.1 % (40.0-76.0); PLATELET 305 x1000/uL (130-400); RED BLOOD CELL COUNT 3.41 mill/uL (4.2-5.4); RED CELL DISTRIBUTION WIDTH 14.5 % (11.6-14.6)
[2021-01-26] MEDS ORDERED: BLOOD SUGAR DIAGNOSTIC STRIP TEST SCH (06:45)
[2021-01-26] MEDS: INSULIN LISPRO 100 UNITS/ML SUBCUT SCH ×7 (06:56→21:00)
[2021-01-26] MEDS ORDERED: INSULIN LISPRO 100 UNITS/ML SUBCUT SCH (07:15)
[2021-01-26 08:00] VITALS: BP 136/79
[2021-01-26] MEDS: ASPIRIN 81MG TABLET PO SCH (08:58)
[2021-01-26] MEDS: OXYBUTYNIN CHLORIDE 5MG TABLET PO SCH ×2 (08:58→17:00)
[2021-01-26] MEDS: DOCUSATE SODIUM 100MG CAPSULE PO SCH ×2 (08:58→17:59)
[2021-01-26] MEDS: LABETALOL HCL 200MG TABLET PO SCH ×2 (08:58→21:00)
[2021-01-26] MEDS: DULOXETINE HCL 30MG DR CAPSULE PO SCH (08:59)
[2021-01-26] MEDS: AMLODIPINE 10MG TABLET PO SCH (08:59)
[2021-01-26] MEDS ORDERED: LOSARTAN POTASSIUM 100 MG TABLET PO SCH (09:00)
[2021-01-26] MEDS: INSULIN GLARGINE UD 100 UNITS/ML SYR SUBCUT SCH ×2 (09:52→22:48)
[2021-01-26 12:00] VITALS: BP 103/61
[2021-01-26 16:00] VITALS: BP 114/55
[2021-01-26] MEDS ORDERED: MONTELUKAST SODIUM 10MG TABLET PO SCH (17:00)
[2021-01-26] MEDS: CLONAZEPAM 1MG TABLET PO SCH ×2 (18:15→18:53)
[2021-01-26 20:00] VITALS: BP 90/52
[2021-01-26] MEDS ORDERED: ATORVASTATIN CALCIUM 40MG TABLET PO SCH (21:00)
[2021-01-27] VITALS: BP 120/70
[2021-01-27 04:00] VITALS: BP 113/67
[2021-01-27 06:08] LABS: BASOPHILS % 0.6 % (0.0-2.0); EOSINOPHILS % 3.8 % (0.0-5.0); HEMATOCRIT. 31.2 % (36.0-48.0); HEMOGLOBIN. 10.5 g/dL (12.0-16.0); LYMPHOCYTES % 38.8 % (20.0-50.0); MEAN CORPUSCULAR HEMOGLOBIN 30.9 pg (28.0-32.0); MEAN CORPUSCULAR VOLUME 92.1 fL (81.0-99.0); MEAN PLATELET VOLUME 8.8 fl (7.4-10.4); MONOCYTES % 5.7 % (2.0-8.0); NEUTROPHILS % 51.1 % (40.0-76.0); PLATELET 297 x1000/uL (130-400); RED BLOOD CELL COUNT 3.39 mill/uL (4.2-5.4); RED CELL DISTRIBUTION WIDTH 14.9 % (11.6-14.6)
[2021-01-27] MEDS: GABAPENTIN 300MG CAPSULE PO SCH ×2 (06:41→14:03)
[2021-01-27] MEDS: HYDRALAZINE HCL 50MG TABLET PO SCH ×2 (06:41→14:03)
[2021-01-27] MEDS: INSULIN LISPRO 100 UNITS/ML SUBCUT SCH ×3 (06:45→12:12)
[2021-01-27] MEDS: BLOOD SUGAR DIAGNOSTIC STRIP TEST SCH ×2 (07:08→11:13)
[2021-01-27] MEDS: METFORMIN HCL 500MG TABLET PO SCH (07:18)
[2021-01-27 08:00] VITALS: BP 134/71
[2021-01-27] MEDS: OXYBUTYNIN CHLORIDE 5MG TABLET PO SCH (09:00)
[2021-01-27] MEDS: DULOXETINE HCL 30MG DR CAPSULE PO SCH (09:00)
[2021-01-27] MEDS: DOCUSATE SODIUM 100MG CAPSULE PO SCH (09:00)
[2021-01-27] MEDS: LABETALOL HCL 200MG TABLET PO SCH (09:49)
[2021-01-27] MEDS: AMLODIPINE 10MG TABLET PO SCH (09:49)
[2021-01-27] MEDS: ASPIRIN 81MG TABLET PO SCH (09:49)
[2021-01-27] MEDS: INSULIN GLARGINE UD 100 UNITS/ML SYR SUBCUT SCH (10:03)
[2021-01-27 12:00] VITALS: BP 122/62
[2021-01-27] MEDS ORDERED: LOSA100T32 PO (12:59)
[2021-01-27] MEDS ORDERED: LABE200T9 PO (12:59)
[2021-01-27] MEDS ORDERED: LANTUSUD SUBCUT (12:59)
[2021-01-27] MEDS ORDERED: AMLO10TA80 PO (12:59)
[2021-01-27 13:43] VITALS: BP 122/62
== END 2021-01-27 15:10 | disposition home or self-care (01) | DRG 199 ==
LOC: ER 11:08 → 5WST 13:55 → EDBEDREQ 14:25 → ENRESERV 17:32
PROVIDERS: ADMIT Internal Medicine; ATTEND Internal Medicine
DX: I16.0 Hypertensive urgency (principal); N17.9 Acute kidney failure, unspecified; E11.22 Type 2 diabetes mellitus with diabetic chronic kidney disease; E11.65 Type 2 diabetes mellitus with hyperglycemia; E78.00 Pure hypercholesterolemia, unspecified; E78.5 Hyperlipidemia, unspecified; F12.90 Cannabis use, unspecified, uncomplicated; I12.9 Hypertensive chronic kidney disease with stage 1 through stage 4 chronic kidney disease, or unspecified chronic kidney disease; J44.9 Chronic obstructive pulmonary disease, unspecified; N18.9 Chronic kidney disease, unspecified; Z79.4 Long term (current) use of insulin; Z86.73 Personal history of transient ischemic attack (TIA), and cerebral infarction without residual deficits; Z88.5 Allergy status to narcotic agent; Z79.899 Other long term (current) drug therapy; Z98.891 History of uterine scar from previous surgery
CPT/HCPCS: 36415; 36600; 71045; 80048; 80053; 80061; 80305; 80320; 81003; 82010; 82375; 82805; 82962; 83036; 83880; 83930; 83935; 84145; 84443; 84484; 85025; 93005; 93306; 93970; 97162; 97535; 99291; J1815; J3490; J7030; G0480

== ENCOUNTER 2021-12-17 14:29 | Inpatient (IN) | payer MEDICAID ==
[~2021-12-17] VITALS: Ht 160 cm; Wt 64.9 kg
[~2021-12-17 14:29] MED LIST changes: +AMIODARONE HCL 50MG/ML 3ML VIAL IV ONE; -BUPR1PAT2 TP; +CALCIUM CHLORIDE 1GM/10ML SYR IV ONE; -CLON1TAB12 PO; +LANTUSUD SUBCUT; +LIDOCAINE HCL 2% 5ML SYRINGE IV ONE; +SODIUM BICARBONATE 8.4% 1 MEQ/ML 50ML SYR IV ONE
[2021-12-17] MEDS ORDERED: SODIUM CHLORIDE 0.9% 1,000 ML IV ONE (14:45)
[2021-12-17] MEDS ORDERED: ADENOSINE 3 MG/ML 2ML VIAL IV ONE ×2 (14:45)
[2021-12-17] MEDS ORDERED: SODIUM CHLORIDE 0.9% 1000ML BAG (SEPSIS BOLUS) IV ONE (15:00)
[2021-12-17] MEDS ORDERED: CALCIUM GLUCONATE 1GM PREMIX 50 ML IV ONE (15:00)
[2021-12-17] MEDS ORDERED: CALCIUM GLUCONATE 100MG/ML 10ML VIAL IV ONE (15:15)
[2021-12-17 15:20] LABS: CHLORIDE 92 mEq/L (98-107)
[2021-12-17 15:25] LABS: HEMATOCRIT. 42.1 % (36.0-48.0); HEMOGLOBIN. 12.5 g/dL (12.0-16.0); MEAN CORPUSCULAR VOLUME 97.8 fL (81.0-99.0); MEAN PLATELET VOLUME 10.6 fl (7.4-10.4); PLATELET 332 x1000/uL (130-400); RED BLOOD CELL COUNT 4.31 mill/uL (4.2-5.4); RED CELL DISTRIBUTION WIDTH 15.7 % (11.6-14.6)
[2021-12-17 15:27] LABS: BETA HYDROXYBUTYRATE 7.6 mMol/L (0.0-0.3)
[2021-12-17] MEDS ORDERED: CALCIUM GLUCONATE 1GM PREMIX 50 ML IV NR (15:30)
[2021-12-17] MEDS ORDERED: INSULIN REGULAR (HUMULIN R) 300UNITS/3ML VIAL IV ONE (15:45)
[2021-12-17 15:48] LABS: PHOSPHORUS 8.3 mg/dL (2.5-4.9)
[2021-12-17 16:14] LABS: BG BASE EXCESS -17.9 mmol/L (-2.0-2.0); BG CARBOXYHEMOGLOBIN 0.3 % (0.5-1.5); BG DEOXYHEMOGLOBIN 2.9 % (0.0-5.0); BG FRACTION INSPIRED OXYGEN 21; BG HCO3 ACT 8.9 mmol/L (22.0-26.0); BG METHEMOGLOBIN 0.4 % (0.0-1.5); BG OXYGEN SATURATION 97.1 % (92.0-98.5); BG OXYHEMOGLOBIN 96.4 % (94.0-97.0); BG PCO2 24.6 mmHg (35.0-45.0); BG PH 7.175 (7.350-7.450); BG PO2 108.1 mmHg (75.0-100.0); BG SAMPLE SITE RIGHT BRACHIAL; BG TOTAL HEMOGLOBIN 10.8 g/dL (12.0-18.0); BG VENT MODE ROOM AIR
[2021-12-17] MEDS ORDERED: AMIODARONE HCL 900 MG in DEXT 5% WATER 482 ML IV ONE (16:30)
[2021-12-17] MEDS ORDERED: SODIUM CHLORIDE 0.9% 1,000 ML IV NR (16:45)
[2021-12-17] MEDS ORDERED: SODIUM BICARBONATE 8.4% 1 MEQ/ML 50ML SYR IV NR (16:45)
[2021-12-17 16:49] LABS: PHOSPHORUS 8.8 mg/dL (2.5-4.9)
[2021-12-17 16:51] LABS: PLATELET ESTIMATE NORMAL
[2021-12-17] MEDS ORDERED: AMIODARONE HCL 900 MG in DEXT 5% WATER 482 ML IV NR (17:00)
[2021-12-17] MEDS ORDERED: AMIODARONE HCL 150 MG in DEXT 5% WATER 100 ML IV NR (17:00)
[2021-12-17] MEDS: INSULIN REGULAR 100U/100ML PMX 100 ML IV NR (17:14)
[2021-12-17] MEDS ORDERED: SODIUM CHLORIDE 0.45% 1,000 ML IV ONE (17:15)
[2021-12-17 17:47] LABS: CLARITY URINE CLEAR (CLEAR); COLOR URINE YELLOW (YELLOW); KETONES URINE 1+ (NEGATIVE); LEUKOCYTE ESTERASE URINE NEGATIVE (NEGATIVE); NITRITE URINE NEGATIVE (NEGATIVE); OCCULT BLOOD URINE NEGATIVE (NEGATIVE); PROTEIN URINE NEGATIVE (NEGATIVE); SPECIFIC GRAVITY URINE 1.023 (1.005-1.030); UROBILINOGEN URINE 0.2 E.U./dL (0.2-1.0)
[2021-12-17 18:17] LABS: PHOSPHORUS 7.2 mg/dL (2.5-4.9)
[2021-12-17] MEDS ORDERED: NALOXONE HCL 0.4 MG/ML 1ML VIAL IV PRN (21:45)
[2021-12-17] MEDS ORDERED: POTASSIUM CHLORIDE INJ 10 MEQ in SODIUM CHLORIDE 0.9% 1,000 ML IV SCH (22:00)
[2021-12-17] MEDS: HYDROCODONE/ACETAMINOPHEN 5/325MG TABLET PO PRN (22:28)
[2021-12-18] VITALS (9 sets, daily range): BP systolic 116–172; BP diastolic 62–89
[2021-12-18] MEDS: INSULIN REGULAR 100U/100ML PMX 100 ML IV NR (01:49)
[2021-12-18] MEDS ORDERED: DEXTROSE 50% WATER 50ML SYRINGE IV PRN (06:15)
[2021-12-18] MEDS ORDERED: INSULIN GLARGINE UD 100 UNITS/ML SYR SUBCUT SCH ×2 (07:00→22:00)
[2021-12-18] MEDS: INSULIN LISPRO (HIGH DOSE) 100 UNITS/ML SUBCUT SCH ×5 (08:00→23:12)
[2021-12-18] MEDS: BLOOD SUGAR DIAGNOSTIC STRIP TEST SCH ×5 (08:00→23:01)
[2021-12-18] MEDS: HYDROCODONE/ACETAMINOPHEN 5/325MG TABLET PO PRN ×2 (08:55→17:57)
[2021-12-18 11:30] LABS: CREATINE KINASE MB FRACTION 2.6 ng/mL (0.5-3.6)
[2021-12-18 13:02] LABS: BASOPHILS % 0.3 % (0.0-2.0); HEMATOCRIT. 33.3 % (36.0-48.0); LYMPHOCYTES % 15.6 % (20.0-50.0); MEAN CORPUSCULAR HEMOGLOBIN 29.1 pg (28.0-32.0); MEAN CORPUSCULAR VOLUME 87.9 fL (81.0-99.0); MEAN PLATELET VOLUME 9.3 fl (7.4-10.4); NEUTROPHILS % 79.1 % (40.0-76.0); PLATELET 293 x1000/uL (130-400); RED BLOOD CELL COUNT 3.79 mill/uL (4.2-5.4); RED CELL DISTRIBUTION WIDTH 14.4 % (11.6-14.6)
[2021-12-18] MEDS ORDERED: LABE200T9 PO (13:18)
[2021-12-18] MEDS ORDERED: TAMS-11 PO (13:18)
[2021-12-18] MEDS ORDERED: ASPI-1406 PO (13:18)
[2021-12-18] MEDS ORDERED: T3 PO (13:18)
[2021-12-18] MEDS ORDERED: AMLO10TA80 PO (13:18)
[2021-12-18] MEDS ORDERED: FLUT1AER5 INH (13:18)
[2021-12-18] MEDS ORDERED: ONDA4TAB11 PO (13:18)
[2021-12-18] MEDS ORDERED: LOSA50TA41 PO (13:18)
[2021-12-18] MEDS ORDERED: ALBU4TAB6 INH (13:18)
[2021-12-18] MEDS ORDERED: DOCU-150 PO (13:18)
[2021-12-18] MEDS ORDERED: FURO20TA4 PO (13:18)
[2021-12-18] MEDS ORDERED: GABA300S PO (13:18)
[2021-12-18] MEDS ORDERED: ATOR20TA65 PO (13:18)
[2021-12-18] MEDS ORDERED: CEFTRIAXONE 1 G PREMIX 50 ML IV SCH (14:15)
[2021-12-18 15:59] LABS: T4 FREE 1.06 ng/dL (0.76-1.46)
[2021-12-18] MEDS ORDERED: VANCOMYCIN 750 MG in DEXT 5% WATER 250 ML IV NR (16:00)
[2021-12-18] MEDS: CEFTRIAXONE 1,000 MG in DEXTROSE 5% WATER 50 ML IV SCH (16:12)
[2021-12-18] MEDS: DOCUSATE SODIUM 100MG CAPSULE PO SCH (16:43)
[2021-12-18] MEDS: GABAPENTIN 300MG CAPSULE PO SCH (16:43)
[2021-12-18] MEDS: LABETALOL HCL 200MG TABLET PO SCH (16:44)
[2021-12-18] MEDS: AMIODARONE HCL 200 MG TABLET PO SCH (17:56)
[2021-12-18] MEDS: SODIUM CHLORIDE 0.45% 1,000 ML IV SCH (20:17)
[2021-12-19] VITALS (12 sets, daily range): BP systolic 90–157; BP diastolic 52–87
[2021-12-19] MEDS: BLOOD SUGAR DIAGNOSTIC STRIP TEST SCH ×5 (03:22→20:25)
[2021-12-19] MEDS: INSULIN LISPRO (HIGH DOSE) 100 UNITS/ML SUBCUT SCH ×5 (03:26→20:32)
[2021-12-19] MEDS ORDERED: FUROSEMIDE 20MG TABLET PO SCH (09:00)
[2021-12-19] MEDS ORDERED: TAMSULOSIN HCL 0.4MG SR CAPSULE PO SCH (09:00)
[2021-12-19] MEDS: ASPIRIN 81MG EC TABLET PO SCH ×2 (09:24→11:02)
[2021-12-19] MEDS: ATORVASTATIN CALCIUM 20MG TABLET PO SCH (09:24)
[2021-12-19] MEDS: DOCUSATE SODIUM 100MG CAPSULE PO SCH ×2 (09:25→16:05)
[2021-12-19] MEDS: AMIODARONE HCL 200 MG TABLET PO SCH (09:25)
[2021-12-19] MEDS: GABAPENTIN 300MG CAPSULE PO SCH ×4 (09:25→18:14)
[2021-12-19] MEDS: LOSARTAN POTASSIUM 50 MG TABLET PO SCH (09:25)
[2021-12-19] MEDS: LABETALOL HCL 200MG TABLET PO SCH ×3 (09:25→18:13)
[2021-12-19] MEDS: AMLODIPINE 10MG TABLET PO SCH (09:26)
[2021-12-19] MEDS: SODIUM CHLORIDE 0.45% 1,000 ML IV SCH (09:32)
[2021-12-19 10:59] LABS: BASOPHILS % 0.7 % (0.0-2.0); EOSINOPHILS % 1.2 % (0.0-5.0); HEMATOCRIT. 29.2 % (36.0-48.0); LYMPHOCYTES % 22.8 % (20.0-50.0); MEAN CORPUSCULAR HEMOGLOBIN 30.3 pg (28.0-32.0); MEAN CORPUSCULAR VOLUME 88.6 fL (81.0-99.0); MEAN PLATELET VOLUME 9.2 fl (7.4-10.4); MONOCYTES % 6.6 % (2.0-8.0); NEUTROPHILS % 68.7 % (40.0-76.0); PLATELET 247 x1000/uL (130-400); RED BLOOD CELL COUNT 3.29 mill/uL (4.2-5.4); RED CELL DISTRIBUTION WIDTH 14.6 % (11.6-14.6)
[2021-12-19] MEDS: VANCOMYCIN 750 MG in DEXT 5% WATER 250 ML IV SCH (11:05)
[2021-12-19] MEDS: CEFTRIAXONE 1,000 MG in DEXTROSE 5% WATER 50 ML IV SCH (15:54)
[2021-12-19] MEDS ORDERED: VANCOMYCIN 500MG PREMIX 100 ML IV SCH (16:00)
[2021-12-19] MEDS: PHENOL/SODIUM PHENOLATE 1.4% SRPAY 177ML MM SCH ×2 (17:56→20:31)
[2021-12-19] MEDS: INSULIN GLARGINE UD 100 UNITS/ML SYR SUBCUT SCH (21:02)
[2021-12-20] VITALS (11 sets, daily range): BP systolic 116–151; BP diastolic 52–91
[2021-12-20] MEDS: BLOOD SUGAR DIAGNOSTIC STRIP TEST SCH ×5 (00:08→16:14)
[2021-12-20] MEDS: PHENOL/SODIUM PHENOLATE 1.4% SRPAY 177ML MM SCH ×5 (00:12→16:55)
[2021-12-20] MEDS: INSULIN LISPRO (HIGH DOSE) 100 UNITS/ML SUBCUT SCH ×5 (00:13→16:55)
[2021-12-20] MEDS: SODIUM CHLORIDE 0.45% 1,000 ML IV SCH ×2 (00:14→12:23)
[2021-12-20] MEDS: VANCOMYCIN 750 MG in DEXT 5% WATER 250 ML IV SCH (08:27)
[2021-12-20] MEDS: DOCUSATE SODIUM 100MG CAPSULE PO SCH ×2 (08:52→16:55)
[2021-12-20] MEDS: AMLODIPINE 10MG TABLET PO SCH (08:52)
[2021-12-20] MEDS: LABETALOL HCL 200MG TABLET PO SCH ×2 (08:52→16:54)
[2021-12-20] MEDS: ATORVASTATIN CALCIUM 20MG TABLET PO SCH (08:52)
[2021-12-20] MEDS: LOSARTAN POTASSIUM 50 MG TABLET PO SCH (08:52)
[2021-12-20] MEDS: GABAPENTIN 300MG CAPSULE PO SCH ×3 (08:52→16:57)
[2021-12-20] MEDS ORDERED: PHEN20SP MT (09:23)
[2021-12-20] MEDS: INSULIN GLARGINE UD 100 UNITS/ML SYR SUBCUT SCH (10:43)
[2021-12-20] MEDS: CEFTRIAXONE 1,000 MG in DEXTROSE 5% WATER 50 ML IV SCH (16:00)
== END 2021-12-20 18:00 | disposition home or self-care (01) | DRG 720 ==
LOC: ER 14:29 → MICUSO 16:55 → EDBEDREQ 16:58 → EDBEDREQTM 16:58 → EDBEDREQ 16:59 → 5EST 12-18 08:33
PROVIDERS: ADMIT Internal Medicine; ATTEND Internal Medicine
DX: A41.9 Sepsis, unspecified organism (principal); N17.0 Acute kidney failure with tubular necrosis; E11.10 Type 2 diabetes mellitus with ketoacidosis without coma; I27.20 Pulmonary hypertension, unspecified; I47.1 Supraventricular tachycardia; K81.9 Cholecystitis, unspecified; E87.1 Hypo-osmolality and hyponatremia; E86.0 Dehydration; E11.22 Type 2 diabetes mellitus with diabetic chronic kidney disease; E87.5 Hyperkalemia; M48.02 Spinal stenosis, cervical region; I12.9 Hypertensive chronic kidney disease with stage 1 through stage 4 chronic kidney disease, or unspecified chronic kidney disease; J44.9 Chronic obstructive pulmonary disease, unspecified; E11.42 Type 2 diabetes mellitus with diabetic polyneuropathy; E78.5 Hyperlipidemia, unspecified; E87.8 Other disorders of electrolyte and fluid balance, not elsewhere classified; N18.30 Chronic kidney disease, stage 3 unspecified; Z79.4 Long term (current) use of insulin; Z82.49 Family history of ischemic heart disease and other diseases of the circulatory system; Z88.5 Allergy status to narcotic agent; Z90.49 Acquired absence of other specified parts of digestive tract
CPT/HCPCS: 36415; 36600; 71045; 74176; 80048; 80053; 81003; 82010; 82375; 82550; 82553; 82805; 82962; 83036; 83605; 83735; 83880; 84100; 84145; 84439; 84443; 84450; 84460; 84484; 85025; 85379; 93005; 93306; 93923; 93970; 97162; 97535; 99291; J0282; J0610; J0696; J1815; J3370; J3480; J3490; J7030; J7060

== ENCOUNTER → 2021-12-31 | Outpatient (CLI) | payer MEDICAID ==
[~2021-12-31] MED LIST changes: +ALBU4TAB6 INH; -AMIODARONE HCL 50MG/ML 3ML VIAL IV ONE; +AMLO10TA4 PO; +AMOX1TAB16 MT; +ATOR20TA PO; +ATOR20TA65 PO; -CALCIUM CHLORIDE 1GM/10ML SYR IV ONE; +DOCU-150 PO; +FLUT1AER5 INH; +GABA300S PO; +INSU100I24 SQ; +INSU100I26 SQ; +LEVO500T89 MT; -LIDOCAINE HCL 2% 5ML SYRINGE IV ONE; +LOSA50TA41 PO; +ONDA4TAB11 PO; +PHEN20SP MT; -SODIUM BICARBONATE 8.4% 1 MEQ/ML 50ML SYR IV ONE; +T3 PO
== END | disposition home or self-care (01) ==
LOC: LAB 12:28
PROVIDERS: ATTEND Surgery
DX: Z01.812 Encounter for preprocedural laboratory examination (principal); Z20.822 Contact with and (suspected) exposure to COVID-19
CPT/HCPCS: 87426

== ENCOUNTER 2022-01-01 06:38 | Inpatient (IN) | payer MEDICAID ==
[~2022-01-01] VITALS: Ht 160 cm; Wt 62.1 kg
[~2022-01-01 06:38] MED LIST changes: -ALBU4TAB6 INH; -AMLO10TA4 PO; -AMLO10TA80 PO; -AMOX1TAB16 MT; -ATOR20TA PO; -ATOR20TA65 PO; -DOCU-138 PO; -DULO30CA2 PO; -GABA300S PO; -INSU100C3 SQ; -INSU100V36 SQ; -LABE200T9 PO; -LANTUSUD SUBCUT; -LEVO500T89 MT; -LEVVL SQ; -LIP40 PO; -LOSA100T32 PO; -ZOLP10TA6 PO
[2022-01-01] MEDS ORDERED: SKIN ADHESIVE 0.7 GM EA TOP ONE (07:24)
[2022-01-01] MEDS ORDERED: BUPIVACAINE HCL/PF 0.5% (5MG/ML) 30ML ONE (07:24)
[2022-01-01] MEDS ORDERED: ROCURONIUM BROMIDE 10MG/ML VIAL 5ML IV ONE (08:41)
[2022-01-01] MEDS ORDERED: ONDANSETRON HCL 4MG/2ML INJ IV PRN ×2 (09:15→15:45)
[2022-01-01] MEDS ORDERED: LABETALOL 5MG/ML SYR 20 MG/4 ML SYRINGE IV PRN (09:15)
[2022-01-01] MEDS ORDERED: HYDROMORPHONE HCL/PF 2MG/ML CPJ IV PRN (09:15)
[2022-01-01] MEDS ORDERED: MEPERIDINE HCL/PF 25MG/ML CPJ IV PRN (09:15)
[2022-01-01] MEDS ORDERED: NEOSTIGMINE METHYLSULFATE 1MG/ML 10 ML VIAL ONE (09:38)
[2022-01-01] MEDS ORDERED: GLYCOPYRROLATE 0.2 MG/ML 2ML VIAL ONE (09:45)
[2022-01-01] MEDS ORDERED: FENTANYL CITRATE/PF 50MCG/ML 2ML VIAL IV PRN (09:45)
[2022-01-01] MEDS ORDERED: MEPERIDINE HCL/PF 25MG/ML CPJ IM NR (10:45)
[2022-01-01] MEDS ORDERED: GUAIFENESIN 200MG/10ML SUGAR FREE UDC PO PRN (15:45)
[2022-01-01] MEDS ORDERED: DOCUSATE SODIUM 100MG CAPSULE PO PRN (15:45)
[2022-01-01] MEDS ORDERED: IPRATROPIUM/ALBUTEROL 0.5-3(2.5)MG/3ML NEB NEB PRN (15:45)
[2022-01-01] MEDS ORDERED: CLONIDINE 0.1MG TABLET PO PRN (15:45)
[2022-01-01] MEDS ORDERED: MAGNESIUM/ALUMINUM HYDROXIDE/SIMETHICONE 30ML UDC PO PRN (15:45)
[2022-01-01] MEDS ORDERED: ACETAMINOPHEN 325MG TABLET PO PRN (15:45)
[2022-01-01] MEDS ORDERED: DEXTROSE 50% WATER 50ML SYRINGE IV PRN (15:45)
[2022-01-01 16:05] LABS: HEMATOCRIT. 29.1 % (36.0-48.0); HEMOGLOBIN. 9.7 g/dL (12.0-16.0); MEAN CORPUSCULAR HEMOGLOBIN 30.2 pg (28.0-32.0); MEAN CORPUSCULAR VOLUME 90.8 fL (81.0-99.0); MEAN PLATELET VOLUME 7.3 fl (7.4-10.4); PLATELET 373 x1000/uL (130-400); RED CELL DISTRIBUTION WIDTH 15.1 % (11.6-14.6)
[2022-01-01 16:14] LABS: CHLORIDE 113 mEq/L (98-107)
[2022-01-01 16:20] LABS: LDL CHOLESTEROL 149 mg/dL (5-100)
[2022-01-01 16:22] LABS: HDL CHOLESTEROL 70 mg/dL (40-59)
[2022-01-01 17:13] LABS: PLATELET ESTIMATE NORMAL
[2022-01-01] MEDS: INSULIN LISPRO 100 UNITS/ML SUBCUT SCH ×2 (17:17→23:10)
[2022-01-01] MEDS ORDERED: MAGNESIUM 2 G PREMIX 50 ML IV NR (17:30)
[2022-01-01] MEDS ORDERED: KETOROLAC 15MG/ML VIAL IV PRN (19:15)
[2022-01-01] MEDS ORDERED: HYDROCODONE/APAP 7.5/325MG 1 TAB TABLET PO PRN (19:15)
[2022-01-01 20:00] VITALS: BP 131/68
[2022-01-01] MEDS: BLOOD SUGAR DIAGNOSTIC STRIP TEST SCH (21:00)
[2022-01-01] MEDS ORDERED: ZOLPIDEM TARTRATE 5MG TABLET PO PRN (21:00)
[2022-01-01] MEDS: DEXT 5%/0.45% NACL 1000ML 1,000 ML IV SCH (22:11)
[2022-01-01] MEDS: KETOROLAC 15MG/ML VIAL IV PRN (23:05)
[2022-01-01] MEDS: LABETALOL HCL 200MG TABLET PO SCH (23:07)
[2022-01-02] MEDS ORDERED: ATOR20TA PO (00:52)
[2022-01-02] MEDS ORDERED: AMLO10TA4 PO (00:56)
[2022-01-02 08:00] VITALS: BP 141/71
[2022-01-02 08:02] LABS: CHLORIDE 112 mEq/L (98-107)
[2022-01-02] MEDS: BLOOD SUGAR DIAGNOSTIC STRIP TEST SCH ×4 (08:02→21:53)
[2022-01-02 08:13] LABS: PHOSPHORUS 2.9 mg/dL (2.5-4.9)
[2022-01-02] MEDS: LABETALOL HCL 200MG TABLET PO SCH ×2 (10:11→21:00)
[2022-01-02] MEDS: AMLODIPINE 10MG TABLET PO SCH (10:11)
[2022-01-02] MEDS: ENOXAPARIN 40MG/0.4ML SYR SUBCUT SCH (10:12)
[2022-01-02] MEDS: INSULIN LISPRO 100 UNITS/ML SUBCUT SCH ×5 (10:18→21:57)
[2022-01-02] MEDS: DEXT 5%/0.45% NACL 1000ML 1,000 ML IV SCH ×2 (10:19→21:57)
[2022-01-02] MEDS: SODIUM POLYSTYRENE SULFONATE 15 G/60 ML BOT PO NR ×2 (11:00→12:39)
[2022-01-02 12:00] VITALS: BP 138/72
[2022-01-02] MEDS ORDERED: INFLUENZA VACCINE 05/PF 0.5 ML SYRINGE IM ONE (12:00)
[2022-01-02] MEDS: KETOROLAC 15MG/ML VIAL IV PRN ×2 (12:14→21:58)
[2022-01-02] MEDS: GABAPENTIN 100MG CAPSULE PO SCH ×2 (14:16→22:25)
[2022-01-02 16:00] VITALS: BP 116/55
[2022-01-02 20:00] VITALS: BP 105/52
[2022-01-03] VITALS: BP 130/57
[2022-01-03 04:00] VITALS: BP 137/67
[2022-01-03] MEDS: BLOOD SUGAR DIAGNOSTIC STRIP TEST SCH ×4 (06:15→20:52)
[2022-01-03] MEDS: GABAPENTIN 100MG CAPSULE PO SCH ×3 (06:15→20:51)
[2022-01-03] MEDS: INSULIN LISPRO 100 UNITS/ML SUBCUT SCH ×5 (06:58→20:51)
[2022-01-03 08:00] VITALS: BP 164/79
[2022-01-03] MEDS: AMLODIPINE 10MG TABLET PO SCH (09:49)
[2022-01-03] MEDS: LABETALOL HCL 200MG TABLET PO SCH ×2 (09:49→20:51)
[2022-01-03] MEDS: ENOXAPARIN 40MG/0.4ML SYR SUBCUT SCH (09:50)
[2022-01-03] MEDS: DEXT 5%/0.45% NACL 1000ML 1,000 ML IV SCH (10:00)
[2022-01-03] MEDS ORDERED: INSULIN GLARGINE 100 UNITS/ML SUBCUT SCH (10:00)
[2022-01-03 12:00] VITALS: BP 137/67
[2022-01-03 16:00] VITALS: BP 107/58
[2022-01-03 19:50] VITALS: BP 107/58
[2022-01-07] MEDS ORDERED: LEVO500T89 MT (15:08)
== END 2022-01-03 21:52 | disposition home or self-care (01) | DRG 263 ==
LOC: OR 06:38 → 6EST 18:26
PROVIDERS: ADMIT Internal Medicine; ATTEND Internal Medicine
PROC: 0FT44ZZ Resection of Gallbladder, Percutaneous Endoscopic Approach (ICD-10-PCS; principal; 2022-01-01)
DX: K80.10 Calculus of gallbladder with chronic cholecystitis without obstruction (principal); E44.0 Moderate protein-calorie malnutrition; D63.8 Anemia in other chronic diseases classified elsewhere; E11.40 Type 2 diabetes mellitus with diabetic neuropathy, unspecified; E83.51 Hypocalcemia; K82.8 Other specified diseases of gallbladder; E11.65 Type 2 diabetes mellitus with hyperglycemia; E87.5 Hyperkalemia; I10 Essential (primary) hypertension; M48.00 Spinal stenosis, site unspecified; J44.9 Chronic obstructive pulmonary disease, unspecified; R74.01 Elevation of levels of liver transaminase levels; Z79.4 Long term (current) use of insulin; Z68.24 Body mass index [BMI] 24.0-24.9, adult
CPT/HCPCS: 36415; 80048; 80053; 80061; 82962; 83036; 83735; 84100; 85025; 88304; 93970; 97166; 97535; C1893; J1650; J1815; J1885; J2175; J2405; J2710; J3010; J3475; J3490

== ENCOUNTER 2022-01-04 14:47 | Inpatient (IN) | payer MEDICAID ==
[~2022-01-04] VITALS: Ht 165.1 cm; Wt 63.0 kg
[~2022-01-04 14:47] MED LIST changes: +AMLO10TA4 PO; +ATOR20TA PO; -METO10TA3 PO; -MONT10TA32 PO; -ONDA4TAB11 PO; -OXYB5TAB16 PO
[2022-01-04] MEDS ORDERED: ACETAMINOPHEN 325MG TABLET PO STA (15:35)
[2022-01-04] MEDS ORDERED: SODIUM CHLORIDE 0.9% 1,000 ML IV ONE ×2 (15:45→18:15)
[2022-01-04] MEDS ORDERED: ONDANSETRON HCL 4MG/2ML INJ IV ONE (15:45)
[2022-01-04 16:24] LABS: CHLORIDE 114 mEq/L (98-107)
[2022-01-04 16:27] LABS: INR 0.9
[2022-01-04 16:29] LABS: BASOPHILS % 0.3 % (0.0-2.0); EOSINOPHILS % 0.5 % (0.0-5.0); HEMATOCRIT. 29.1 % (36.0-48.0); HEMOGLOBIN. 9.5 g/dL (12.0-16.0); LYMPHOCYTES % 13.8 % (20.0-50.0); MEAN CORPUSCULAR HEMOGLOBIN 30.4 pg (28.0-32.0); MEAN CORPUSCULAR VOLUME 93.5 fL (81.0-99.0); MONOCYTES % 5.1 % (2.0-8.0); NEUTROPHILS % 80.3 % (40.0-76.0); PLATELET 389 x1000/uL (130-400); RED BLOOD CELL COUNT 3.11 mill/uL (4.2-5.4); RED CELL DISTRIBUTION WIDTH 16.4 % (11.6-14.6)
[2022-01-04] MEDS ORDERED: DIPHENHYDRAMINE 50MG/ML VIAL IV ONE (16:30)
[2022-01-04] MEDS ORDERED: METRONIDAZOLE 500 MG PREMIX 100 ML IV ONE (16:30)
[2022-01-04] MEDS ORDERED: MORPHINE SULFATE 4 MG/ML CPJ (NOT FOR IM USE) IV ONE (16:30)
[2022-01-04] MEDS ORDERED: CEFTRIAXONE 1 G PREMIX 50 ML IV ONE (16:30)
[2022-01-04 20:13] LABS: CLARITY URINE CLEAR (CLEAR); COLOR URINE YELLOW (YELLOW); KETONES URINE TRACE (NEGATIVE); LEUKOCYTE ESTERASE URINE NEGATIVE (NEGATIVE); NITRITE URINE NEGATIVE (NEGATIVE); OCCULT BLOOD URINE NEGATIVE (NEGATIVE); PH URINE 5.5 (4.5-8.0); PROTEIN URINE 2+ (NEGATIVE); SPECIFIC GRAVITY URINE 1.019 (1.005-1.030); UROBILINOGEN URINE 0.2 E.U./dL (0.2-1.0)
[2022-01-04] MEDS ORDERED: SODIUM POLYSTYRENE SULFONATE 15 G/60 ML BOT PO NR (22:15)
[2022-01-04 23:50] VITALS: BP 131/75
[2022-01-05] MEDS ORDERED: DIPHENHYDRAMINE 50MG/ML VIAL IV PRN (00:30)
[2022-01-05] MEDS ORDERED: ONDANSETRON HCL 4MG/2ML INJ IV PRN (00:30)
[2022-01-05] MEDS ORDERED: DEXTROSE 50% WATER 50ML SYRINGE IV PRN (01:30)
[2022-01-05] MEDS: DEXT 5%/0.45% NACL 1000ML 1,000 ML IV SCH ×2 (01:39→20:44)
[2022-01-05] MEDS: MORPHINE SULFATE 2 MG/ML CPJ (NOT FOR IM USE) IV PRN ×2 (01:45→15:30)
[2022-01-05] MEDS: PIPERACILLIN/TAZOBACTAM 3.375G in DEXT 5% WATER 50ML IV SCH ×3 (05:33→23:25)
[2022-01-05] MEDS ORDERED: PIPERACILLIN/TAZOBACTAM 3.375GM/50ML PREMIX IV SCH (06:00)
[2022-01-05] MEDS: BLOOD SUGAR DIAGNOSTIC STRIP TEST SCH ×4 (07:18→21:00)
[2022-01-05] MEDS: INSULIN LISPRO 100 UNITS/ML SUBCUT SCH ×4 (07:18→21:00)
[2022-01-05 08:00] VITALS: BP 122/69
[2022-01-05] MEDS ORDERED: INSULIN LISPRO 100 UNITS/ML SUBCUT SCH (08:20)
[2022-01-05] MEDS ORDERED: BLOOD SUGAR DIAGNOSTIC STRIP TEST SCH (09:00)
[2022-01-05 10:10] LABS: BASOPHILS % 0.4 % (0.0-2.0); EOSINOPHILS % 0.4 % (0.0-5.0); HEMATOCRIT. 24.8 % (36.0-48.0); HEMOGLOBIN. 8.2 g/dL (12.0-16.0); LYMPHOCYTES % 11.8 % (20.0-50.0); MEAN CORPUSCULAR HEMOGLOBIN 30.3 pg (28.0-32.0); MEAN CORPUSCULAR VOLUME 91.9 fL (81.0-99.0); MEAN PLATELET VOLUME 8.2 fl (7.4-10.4); NEUTROPHILS % 81.4 % (40.0-76.0); PLATELET 308 x1000/uL (130-400); RED CELL DISTRIBUTION WIDTH 15.7 % (11.6-14.6)
[2022-01-05 10:15] LABS: CHLORIDE 120 mEq/L (98-107)
[2022-01-05 12:00] VITALS: BP 168/97
[2022-01-05] MEDS: LOSARTAN POTASSIUM 50 MG TABLET PO SCH ×2 (15:15→17:00)
[2022-01-05 16:00] VITALS: BP 171/97
[2022-01-05] MEDS: HYDRALAZINE 20MG/ML VIAL IV PRN (16:31)
[2022-01-05 20:00] VITALS: BP 170/88
[2022-01-05] MEDS ORDERED: ACETAMINOPHEN 650MG SUPP PR PRN (20:30)
[2022-01-06] VITALS (7 sets, daily range): BP systolic 149–200; BP diastolic 68–97
[2022-01-06] MEDS: HYDRALAZINE 20MG/ML VIAL IV PRN ×2 (00:40→09:12)
[2022-01-06] MEDS: DEXT 5%/0.45% NACL 1000ML 1,000 ML IV SCH ×2 (05:32→20:23)
[2022-01-06] MEDS: PIPERACILLIN/TAZOBACTAM 3.375G in DEXT 5% WATER 50ML IV SCH ×3 (05:32→21:35)
[2022-01-06] MEDS: BLOOD SUGAR DIAGNOSTIC STRIP TEST SCH ×4 (06:11→21:07)
[2022-01-06] MEDS: INSULIN LISPRO 100 UNITS/ML SUBCUT SCH ×4 (06:49→21:07)
[2022-01-06] MEDS: LOSARTAN POTASSIUM 50 MG TABLET PO SCH ×2 (08:26→17:51)
[2022-01-06 09:07] LABS: BASOPHILS % 0.3 % (0.0-2.0); EOSINOPHILS % 0.1 % (0.0-5.0); HEMATOCRIT. 26.5 % (36.0-48.0); HEMOGLOBIN. 8.7 g/dL (12.0-16.0); LYMPHOCYTES % 8.7 % (20.0-50.0); MEAN CORPUSCULAR HEMOGLOBIN 29.4 pg (28.0-32.0); MEAN CORPUSCULAR VOLUME 89.4 fL (81.0-99.0); MEAN PLATELET VOLUME 8.2 fl (7.4-10.4); MONOCYTES % 5.6 % (2.0-8.0); NEUTROPHILS % 85.3 % (40.0-76.0); PLATELET 352 x1000/uL (130-400); RED BLOOD CELL COUNT 2.96 mill/uL (4.2-5.4); RED CELL DISTRIBUTION WIDTH 15.9 % (11.6-14.6)
[2022-01-06] MEDS: MORPHINE SULFATE 2 MG/ML CPJ (NOT FOR IM USE) IV PRN ×2 (10:11→21:35)
[2022-01-06] MEDS: IPRATROPIUM BROMIDE (0.02%) 0.5MG/2.5ML NEB HHN SCH ×3 (10:30→21:24)
[2022-01-06] MEDS: LORAZEPAM 2MG/ML CPJ IV PRN (12:47)
[2022-01-06 13:34] LABS: BG BASE EXCESS -12.8 mmol/L (-2.0-2.0); BG CARBOXYHEMOGLOBIN 0.3 % (0.5-1.5); BG DEOXYHEMOGLOBIN 2.6 % (0.0-5.0); BG HCO3 ACT 11.4 mmol/L (22.0-26.0); BG METHEMOGLOBIN 0.3 % (0.0-1.5); BG OXYGEN SATURATION 97.4 % (92.0-98.5); BG OXYHEMOGLOBIN 96.8 % (94.0-97.0); BG PH 7.333 (7.350-7.450); BG PO2 101.4 mmHg (75.0-100.0); BG SAMPLE SITE RIGHT BRACHIAL; BG TOTAL HEMOGLOBIN 9.9 g/dL (12.0-18.0); BG VENT MODE NASAL CANNULA
[2022-01-06] MEDS: METOPROLOL TARTRATE 50MG TABLET PO SCH (21:06)
[2022-01-06] MEDS: SODIUM CHLORIDE 0.45% 1,000 ML IV SCH (21:36)
[2022-01-07] VITALS (16 sets, daily range): BP systolic 126–176; BP diastolic 57–96
[2022-01-07] MEDS: IPRATROPIUM BROMIDE (0.02%) 0.5MG/2.5ML NEB HHN SCH ×4 (04:30→20:35)
[2022-01-07] MEDS: PIPERACILLIN/TAZOBACTAM 3.375G in DEXT 5% WATER 50ML IV SCH ×3 (05:38→21:42)
[2022-01-07] MEDS ORDERED: INSULIN LISPRO 100 UNITS/ML SUBCUT NR ×2 (06:00)
[2022-01-07] MEDS: BLOOD SUGAR DIAGNOSTIC STRIP TEST SCH ×4 (06:10→21:45)
[2022-01-07] MEDS: INSULIN LISPRO 100 UNITS/ML SUBCUT SCH ×4 (06:10→21:43)
[2022-01-07] MEDS: METOPROLOL TARTRATE 50MG TABLET PO SCH ×2 (08:28→21:42)
[2022-01-07] MEDS: LOSARTAN POTASSIUM 50 MG TABLET PO SCH ×2 (08:28→16:35)
[2022-01-07] MEDS: SODIUM CHLORIDE 0.45% 1,000 ML IV SCH (08:29)
[2022-01-07] MEDS ORDERED: FENTANYL CITRATE/PF 50MCG/ML 2ML VIAL IV SCH (11:00)
[2022-01-07] MEDS ORDERED: LEVO500T89 MT ×2 (15:08)
[2022-01-07] MEDS ORDERED: INSULIN GLARGINE 100 UNITS/ML SUBCUT SCH (15:15)
[2022-01-07] MEDS ORDERED: NALOXONE HCL 0.4MG/ML VIAL IV PRN (15:30)
[2022-01-07 16:05] LABS: HEMATOCRIT. 27.6 % (36.0-48.0); HEMOGLOBIN. 8.7 g/dL (12.0-16.0); MEAN CORPUSCULAR HEMOGLOBIN 29.3 pg (28.0-32.0); MEAN CORPUSCULAR VOLUME 92.8 fL (81.0-99.0); PLATELET 470 x1000/uL (130-400); RED BLOOD CELL COUNT 2.97 mill/uL (4.2-5.4); RED CELL DISTRIBUTION WIDTH 16.8 % (11.6-14.6)
[2022-01-07 16:49] LABS: PLATELET ESTIMATE INCREASED
[2022-01-07] MEDS ORDERED: INSULIN LISPRO 100 UNITS/ML SUBCUT ONE (21:15)
[2022-01-07] MEDS: INSULIN GLARGINE 100 UNITS/ML SUBCUT SCH (21:45)
[2022-01-07] MEDS ORDERED: MORPHINE SULFATE 2 MG/ML CPJ (NOT FOR IM USE) IV NR (22:15)
[2022-01-08] VITALS: BP 122/67
[2022-01-08] MEDS: IPRATROPIUM BROMIDE (0.02%) 0.5MG/2.5ML NEB HHN SCH ×4 (02:01→21:42)
[2022-01-08 04:00] VITALS: BP 152/78
[2022-01-08] MEDS: PIPERACILLIN/TAZOBACTAM 3.375G in DEXT 5% WATER 50ML IV SCH ×3 (05:16→21:07)
[2022-01-08] MEDS: INSULIN LISPRO 100 UNITS/ML SUBCUT SCH ×7 (06:38→21:00)
[2022-01-08] MEDS: BLOOD SUGAR DIAGNOSTIC STRIP TEST SCH ×4 (06:39→21:17)
[2022-01-08 08:00] VITALS: BP 165/65
[2022-01-08] MEDS: METOPROLOL TARTRATE 50MG TABLET PO SCH ×2 (09:42→20:57)
[2022-01-08] MEDS: LOSARTAN POTASSIUM 50 MG TABLET PO SCH ×2 (09:42→16:20)
[2022-01-08] MEDS: INSULIN GLARGINE 100 UNITS/ML SUBCUT SCH ×2 (11:36→22:00)
[2022-01-08 12:00] VITALS: BP 140/60
[2022-01-08] MEDS ORDERED: PANTOPRAZOLE SODIUM 40 MG/VIAL IV SCH (14:30)
[2022-01-08 16:00] VITALS: BP 165/65
[2022-01-08] MEDS ORDERED: ONDANSETRON HCL 4MG/2ML INJ IV PRN (16:00)
[2022-01-08] MEDS: SORBITOL 70% SOLN 30ML PO NR ×2 (16:15→16:56)
[2022-01-08] MEDS: HYDRALAZINE 20MG/ML VIAL IV PRN (16:55)
[2022-01-08] MEDS: DOCUSATE SODIUM 100MG CAPSULE PO SCH (17:00)
[2022-01-08 20:00] VITALS: BP 178/78
[2022-01-08] MEDS ORDERED: HYDROCODONE/ACETAMINOPHEN 10/325MG TABLET PO PRN (20:41)
[2022-01-08] MEDS ORDERED: MORPHINE SULFATE 2 MG/ML CPJ (NOT FOR IM USE) IV NR (20:41)
[2022-01-08] MEDS: DIPHENHYDRAMINE 50MG CAPSULE PO PRN (20:57)
[2022-01-08] MEDS ORDERED: BISACODYL 10MG SUPP PR ONE (21:00)
[2022-01-08] MEDS ORDERED: MEROPENEM 1,000 MG in SODIUM CHLORIDE 0.9% 100 ML IV SCH (22:30)
[2022-01-08] MEDS: DEXTROSE 50% WATER 50ML SYRINGE IV PRN (22:44)
[2022-01-09] VITALS: BP 152/69
[2022-01-09] MEDS: PANTOPRAZOLE SODIUM 40 MG/VIAL IV SCH ×2 (01:51→15:19)
[2022-01-09] MEDS: SODIUM CHLORIDE 0.45% 1,000 ML IV SCH ×2 (01:51→14:57)
[2022-01-09] MEDS: IPRATROPIUM BROMIDE (0.02%) 0.5MG/2.5ML NEB HHN SCH ×4 (03:04→21:37)
[2022-01-09 04:00] VITALS: BP 155/79
[2022-01-09] MEDS: DEXTROSE 50% WATER 50ML SYRINGE IV PRN (05:41)
[2022-01-09] MEDS: BLOOD SUGAR DIAGNOSTIC STRIP TEST SCH ×4 (06:26→21:00)
[2022-01-09] MEDS: INSULIN LISPRO 100 UNITS/ML SUBCUT SCH ×5 (06:26→21:00)
[2022-01-09 08:00] VITALS: BP 169/73
[2022-01-09 08:30] LABS: TOTAL IRON BINDING CAPACITY 152 ug/dL (250-450)
[2022-01-09] MEDS: DOCUSATE SODIUM 100MG CAPSULE PO SCH (09:00)
[2022-01-09] MEDS: METOPROLOL TARTRATE 50MG TABLET PO SCH ×2 (09:16→20:14)
[2022-01-09] MEDS: LOSARTAN POTASSIUM 50 MG TABLET PO SCH ×2 (09:16→17:01)
[2022-01-09] MEDS: INSULIN GLARGINE 100 UNITS/ML SUBCUT SCH (09:38)
[2022-01-09] MEDS ORDERED: BARIUM SULFATE 176 GM SUSP.RECON ONE (10:03)
[2022-01-09] MEDS ORDERED: BARIUM SULFATE(VOLUMEN) 450 ML ORAL.SUSP ONE (10:05)
[2022-01-09 10:12] LABS: HEMATOCRIT. 26.3 % (36.0-48.0); HEMOGLOBIN. 8.5 g/dL (12.0-16.0); MEAN CORPUSCULAR HEMOGLOBIN 28.9 pg (28.0-32.0); MEAN CORPUSCULAR VOLUME 89.2 fL (81.0-99.0); MEAN PLATELET VOLUME 7.5 fl (7.4-10.4); PLATELET 552 x1000/uL (130-400); RED BLOOD CELL COUNT 2.95 mill/uL (4.2-5.4); RED CELL DISTRIBUTION WIDTH 15.8 % (11.6-14.6)
[2022-01-09 12:00] VITALS: BP_SYST 119; BP_SYST 148; BP_DIAS 71; BP_DIAS 72
[2022-01-09] MEDS ORDERED: VANCOMYCIN 1,000 MG in DEXT 5% WATER 250 ML IV SCH (14:00)
[2022-01-09] MEDS: MEROPENEM 1,000 MG in SODIUM CHLORIDE 0.9% 100 ML IV SCH (14:55)
[2022-01-09] MEDS: HYDRALAZINE 20MG/ML VIAL IV PRN (15:32)
[2022-01-09 16:00] VITALS: BP 186/91
[2022-01-09] MEDS ORDERED: POTASSIUM CHLORIDE 20MEQ TABLET SR PO NR (19:15)
[2022-01-09 19:22] LABS: PLATELET ESTIMATE INCREASED
[2022-01-09 20:00] VITALS: BP 183/91
[2022-01-09] MEDS: ACETAMINOPHEN 325MG TABLET PO PRN (20:13)
[2022-01-10] VITALS: BP 162/79
[2022-01-10] MEDS: PANTOPRAZOLE SODIUM 40 MG/VIAL IV SCH ×2 (00:32→12:59)
[2022-01-10] MEDS: MEROPENEM 1,000 MG in SODIUM CHLORIDE 0.9% 100 ML IV SCH ×3 (00:32→23:07)
[2022-01-10] MEDS: HYDRALAZINE 20MG/ML VIAL IV PRN (00:34)
[2022-01-10] MEDS: SODIUM CHLORIDE 0.45% 1,000 ML IV SCH ×2 (03:51→17:13)
[2022-01-10 04:00] VITALS: BP 151/77
[2022-01-10] MEDS: LORAZEPAM 2MG/ML CPJ IV PRN (05:41)
[2022-01-10] MEDS ORDERED: VANCOMYCIN 750 MG in DEXT 5% WATER 250 ML IV SCH (06:00)
[2022-01-10] MEDS: INSULIN LISPRO 100 UNITS/ML SUBCUT SCH ×4 (06:40→21:43)
[2022-01-10] MEDS: BLOOD SUGAR DIAGNOSTIC STRIP TEST SCH ×4 (06:40→21:00)
[2022-01-10 08:00] VITALS: BP 168/86
[2022-01-10] MEDS: METOPROLOL TARTRATE 50MG TABLET PO SCH ×2 (08:48→21:41)
[2022-01-10] MEDS: LOSARTAN POTASSIUM 50 MG TABLET PO SCH ×2 (08:48→17:12)
[2022-01-10] MEDS ORDERED: DIATR MEGLU/DIATRIZOATE SOLN 30ML PO SCH (09:30)
[2022-01-10] MEDS: VANCOMYCIN 750MG PMX (XELLIA) 150 ML IV SCH (12:54)
[2022-01-10] MEDS: IPRATROPIUM BROMIDE (0.02%) 0.5MG/2.5ML NEB HHN SCH ×2 (13:05→20:37)
[2022-01-10] MEDS: ACETAMINOPHEN WITH CODEINE 300/30MG TABLET PO PRN (15:51)
[2022-01-10 16:00] VITALS: BP 109/86
[2022-01-10] MEDS: GABAPENTIN 300MG CAPSULE PO SCH ×2 (16:13→21:41)
[2022-01-10 20:00] VITALS: BP 149/71
[2022-01-10] MEDS ORDERED: SORBITOL 70% SOLN 30ML PO NR (21:00)
[2022-01-11] VITALS (15 sets, daily range): BP systolic 144–198; BP diastolic 70–110
[2022-01-11] MEDS: IPRATROPIUM BROMIDE (0.02%) 0.5MG/2.5ML NEB HHN SCH ×4 (00:59→22:05)
[2022-01-11] MEDS: PANTOPRAZOLE SODIUM 40 MG/VIAL IV SCH ×2 (03:04→14:13)
[2022-01-11] MEDS: GABAPENTIN 300MG CAPSULE PO SCH ×3 (05:17→22:00)
[2022-01-11] MEDS: SODIUM CHLORIDE 0.45% 1,000 ML IV SCH ×2 (05:23→20:15)
[2022-01-11] MEDS: VANCOMYCIN 750MG PMX (XELLIA) 150 ML IV SCH ×2 (05:23→17:20)
[2022-01-11] MEDS: INSULIN LISPRO 100 UNITS/ML SUBCUT SCH ×4 (05:46→23:14)
[2022-01-11] MEDS: BLOOD SUGAR DIAGNOSTIC STRIP TEST SCH ×4 (05:46→21:00)
[2022-01-11] MEDS ORDERED: INSULIN LISPRO 100 UNITS/ML SUBCUT SCH (06:15)
[2022-01-11 06:31] LABS: HEMATOCRIT. 27.3 % (36.0-48.0); HEMOGLOBIN. 8.7 g/dL (12.0-16.0); MEAN CORPUSCULAR HEMOGLOBIN 28.7 pg (28.0-32.0); MEAN CORPUSCULAR VOLUME 89.9 fL (81.0-99.0); MEAN PLATELET VOLUME 7.7 fl (7.4-10.4); PLATELET 735 x1000/uL (130-400); RED BLOOD CELL COUNT 3.04 mill/uL (4.2-5.4); RED CELL DISTRIBUTION WIDTH 16.1 % (11.6-14.6)
[2022-01-11 07:05] LABS: VANCOMYCIN TROUGH 11.2 ug/mL (5.0-10.0)
[2022-01-11] MEDS: LOSARTAN POTASSIUM 50 MG TABLET PO SCH ×2 (08:27→16:12)
[2022-01-11] MEDS: METOPROLOL TARTRATE 50MG TABLET PO SCH ×2 (08:27→23:14)
[2022-01-11] MEDS ORDERED: INSULIN GLARGINE 100 UNITS/ML SUBCUT SCH (11:00)
[2022-01-11] MEDS ORDERED: FENTANYL CITRATE/PF 50MCG/ML 2ML VIAL ONE (11:36)
[2022-01-11] MEDS ORDERED: LIDOCAINE HCL 1% 20ML VIAL (Pyxis) INJ ONE (11:36)
[2022-01-11] MEDS ORDERED: FENTANYL CITRATE/PF 50MCG/ML 2ML VIAL IV NR (13:15)
[2022-01-11] MEDS: MEROPENEM 1,000 MG in SODIUM CHLORIDE 0.9% 100 ML IV SCH (14:11)
[2022-01-11] MEDS: ACETAMINOPHEN 325MG TABLET PO PRN (16:12)
[2022-01-11] MEDS: VANCOMYCIN 1GM PMX (XELLIA) 200 ML IV SCH (17:25)
[2022-01-11] MEDS: NIFEDIPINE XL 60MG TAB PO SCH (17:30)
[2022-01-11] MEDS: AMPICILLIN 2,000 MG in SODIUM CHLORIDE 0.9% 100 ML IV SCH ×2 (17:41→23:15)
[2022-01-11] MEDS: INSULIN GLARGINE 100 UNITS/ML SUBCUT SCH (23:13)
[2022-01-12] VITALS (8 sets, daily range): BP systolic 147–189; BP diastolic 72–94
[2022-01-12] MEDS: PANTOPRAZOLE SODIUM 40 MG/VIAL IV SCH ×2 (01:40→13:47)
[2022-01-12] MEDS: IPRATROPIUM BROMIDE (0.02%) 0.5MG/2.5ML NEB HHN SCH ×4 (02:25→20:51)
[2022-01-12] MEDS: GABAPENTIN 300MG CAPSULE PO SCH ×3 (05:16→21:05)
[2022-01-12] MEDS: AMPICILLIN 2,000 MG in SODIUM CHLORIDE 0.9% 100 ML IV SCH ×4 (05:17→23:08)
[2022-01-12] MEDS: BLOOD SUGAR DIAGNOSTIC STRIP TEST SCH ×4 (06:25→21:00)
[2022-01-12] MEDS: INSULIN LISPRO 100 UNITS/ML SUBCUT SCH ×7 (06:25→21:00)
[2022-01-12] MEDS ORDERED: LIDOCAINE HCL 1% 20ML VIAL (Pyxis) INJ ONE (09:12)
[2022-01-12] MEDS: SODIUM CHLORIDE 0.45% 1,000 ML IV SCH ×2 (09:35→22:55)
[2022-01-12] MEDS: NIFEDIPINE XL 60MG TAB PO SCH (11:36)
[2022-01-12] MEDS: LOSARTAN POTASSIUM 50 MG TABLET PO SCH ×2 (11:37→16:58)
[2022-01-12] MEDS: METOPROLOL TARTRATE 50MG TABLET PO SCH ×2 (11:37→21:05)
[2022-01-12] MEDS: INSULIN GLARGINE 100 UNITS/ML SUBCUT SCH ×2 (11:56→22:00)
[2022-01-12 13:02] LABS: HEMATOCRIT. 25.8 % (36.0-48.0); HEMOGLOBIN. 8.8 g/dL (12.0-16.0); MEAN CORPUSCULAR HEMOGLOBIN 30.2 pg (28.0-32.0); MEAN CORPUSCULAR VOLUME 88.7 fL (81.0-99.0); MEAN PLATELET VOLUME 7.5 fl (7.4-10.4); PLATELET 792 x1000/uL (130-400); RED BLOOD CELL COUNT 2.91 mill/uL (4.2-5.4)
[2022-01-12 13:10] LABS: CHLORIDE 112 mEq/L (98-107)
[2022-01-12] MEDS ORDERED: AMOX1TAB16 MT ×2 (13:34)
[2022-01-12] MEDS: MEROPENEM 1,000 MG in SODIUM CHLORIDE 0.9% 100 ML IV SCH ×4 (13:47→23:07)
[2022-01-12] MEDS: VANCOMYCIN 1GM PMX (XELLIA) 200 ML IV SCH (13:48)
[2022-01-12 14:10] LABS: PLATELET ESTIMATE MARKEDLY INCREASED
[2022-01-12 15:48] LABS: PLATELET ESTIMATE INCREASED
[2022-01-13] VITALS: BP 148/71
[2022-01-13] MEDS: ACETAMINOPHEN WITH CODEINE 300/30MG TABLET PO PRN (00:33)
[2022-01-13] MEDS: PANTOPRAZOLE SODIUM 40 MG/VIAL IV SCH ×2 (02:53→14:21)
[2022-01-13 04:00] VITALS: BP 144/81
[2022-01-13] MEDS: AMPICILLIN 2,000 MG in SODIUM CHLORIDE 0.9% 100 ML IV SCH ×4 (04:45→22:32)
[2022-01-13] MEDS: GABAPENTIN 300MG CAPSULE PO SCH ×3 (05:46→21:10)
[2022-01-13] MEDS: VANCOMYCIN 1GM PMX (XELLIA) 200 ML IV SCH ×2 (05:46→23:53)
[2022-01-13] MEDS: INSULIN LISPRO 100 UNITS/ML SUBCUT SCH ×7 (05:47→21:00)
[2022-01-13] MEDS: BLOOD SUGAR DIAGNOSTIC STRIP TEST SCH ×4 (05:47→21:11)
[2022-01-13 08:00] VITALS: BP 148/82
[2022-01-13] MEDS: LOSARTAN POTASSIUM 50 MG TABLET PO SCH ×2 (09:03→17:54)
[2022-01-13] MEDS: NIFEDIPINE XL 60MG TAB PO SCH (09:04)
[2022-01-13] MEDS: METOPROLOL TARTRATE 50MG TABLET PO SCH ×2 (09:04→21:11)
[2022-01-13] MEDS: IPRATROPIUM BROMIDE (0.02%) 0.5MG/2.5ML NEB HHN SCH ×3 (09:33→19:48)
[2022-01-13] MEDS: SODIUM CHLORIDE 0.45% 1,000 ML IV SCH (10:07)
[2022-01-13] MEDS ORDERED: POTASSIUM CHLORIDE 20MEQ TABLET SR PO SCH (11:00)
[2022-01-13] MEDS: MEROPENEM 1,000 MG in SODIUM CHLORIDE 0.9% 100 ML IV SCH ×2 (11:08→23:17)
[2022-01-13] MEDS: INSULIN GLARGINE 100 UNITS/ML SUBCUT SCH ×2 (11:13→22:00)
[2022-01-13 12:00] VITALS: BP 163/90
[2022-01-13 16:00] VITALS: BP 119/72
[2022-01-13 20:00] VITALS: BP 124/67
[2022-01-14] VITALS: BP 114/51
[2022-01-14] MEDS: PANTOPRAZOLE SODIUM 40 MG/VIAL IV SCH ×2 (01:43→13:45)
[2022-01-14] MEDS: SODIUM CHLORIDE 0.45% 1,000 ML IV SCH ×2 (01:43→13:46)
[2022-01-14 04:00] VITALS: BP 137/64
[2022-01-14] MEDS: AMPICILLIN 2,000 MG in SODIUM CHLORIDE 0.9% 100 ML IV SCH ×4 (05:38→23:20)
[2022-01-14] MEDS: GABAPENTIN 300MG CAPSULE PO SCH ×4 (05:38→22:00)
[2022-01-14] MEDS: BLOOD SUGAR DIAGNOSTIC STRIP TEST SCH ×4 (07:29→21:00)
[2022-01-14] MEDS: INSULIN LISPRO 100 UNITS/ML SUBCUT SCH ×4 (07:30→21:00)
[2022-01-14] MEDS: IPRATROPIUM BROMIDE (0.02%) 0.5MG/2.5ML NEB HHN SCH ×3 (07:57→20:38)
[2022-01-14 08:00] VITALS: BP 158/70
[2022-01-14] MEDS: METOPROLOL TARTRATE 50MG TABLET PO SCH ×3 (08:50→21:00)
[2022-01-14] MEDS: NIFEDIPINE XL 60MG TAB PO SCH ×2 (08:50→08:57)
[2022-01-14] MEDS: LOSARTAN POTASSIUM 50 MG TABLET PO SCH ×3 (08:50→16:14)
[2022-01-14] MEDS: INSULIN GLARGINE 100 UNITS/ML SUBCUT SCH ×2 (10:00→22:00)
[2022-01-14 10:45] LABS: BASOPHILS % 0.9 % (0.0-2.0); EOSINOPHILS % 1.4 % (0.0-5.0); HEMOGLOBIN. 9.6 g/dL (12.0-16.0); LYMPHOCYTES % 17.4 % (20.0-50.0); MEAN CORPUSCULAR VOLUME 88.2 fL (81.0-99.0); MEAN PLATELET VOLUME 7.1 fl (7.4-10.4); MONOCYTES % 5.3 % (2.0-8.0); PLATELET 752 x1000/uL (130-400); RED BLOOD CELL COUNT 3.29 mill/uL (4.2-5.4); RED CELL DISTRIBUTION WIDTH 15.7 % (11.6-14.6)
[2022-01-14] MEDS: ZOLPIDEM TARTRATE 5MG TABLET PO PRN (10:45)
[2022-01-14 11:03] LABS: CHLORIDE 113 mEq/L (98-107)
[2022-01-14] MEDS ORDERED: CLONIDINE 0.1MG TABLET PO SCH (11:05)
[2022-01-14] MEDS: MEROPENEM 1,000 MG in SODIUM CHLORIDE 0.9% 100 ML IV SCH ×2 (11:20→23:21)
[2022-01-14 12:00] VITALS: BP 170/85
[2022-01-14 16:00] VITALS: BP 156/58
[2022-01-14] MEDS: VANCOMYCIN 1GM PMX (XELLIA) 200 ML IV SCH (16:14)
[2022-01-14 20:00] VITALS: BP 161/91
[2022-01-14] MEDS: DOCUSATE SODIUM 250MG CAPSULE PO SCH (20:30)
[2022-01-15] VITALS: BP 162/82
[2022-01-15] MEDS: GABAPENTIN 300MG CAPSULE PO SCH ×4 (00:31→22:40)
[2022-01-15] MEDS: DOCUSATE SODIUM 250MG CAPSULE PO SCH ×2 (00:31→09:00)
[2022-01-15] MEDS: METOPROLOL TARTRATE 50MG TABLET PO SCH ×3 (00:31→22:40)
[2022-01-15] MEDS: ZOLPIDEM TARTRATE 5MG TABLET PO PRN ×2 (00:32→22:40)
[2022-01-15] MEDS: ACETAMINOPHEN WITH CODEINE 300/30MG TABLET PO PRN (00:32)
[2022-01-15] MEDS: PANTOPRAZOLE SODIUM 40 MG/VIAL IV SCH ×2 (01:31→13:16)
[2022-01-15] MEDS: IPRATROPIUM BROMIDE (0.02%) 0.5MG/2.5ML NEB HHN SCH ×4 (02:24→21:00)
[2022-01-15 04:00] VITALS: BP 159/85
[2022-01-15] MEDS: BLOOD SUGAR DIAGNOSTIC STRIP TEST SCH ×4 (06:29→21:00)
[2022-01-15] MEDS: AMPICILLIN 2,000 MG in SODIUM CHLORIDE 0.9% 100 ML IV SCH ×4 (06:29→23:07)
[2022-01-15] MEDS: SODIUM CHLORIDE 0.45% 1,000 ML IV SCH (06:30)
[2022-01-15] MEDS: INSULIN LISPRO 100 UNITS/ML SUBCUT SCH ×4 (06:41→22:42)
[2022-01-15 08:00] VITALS: BP 160/85
[2022-01-15] MEDS: LOSARTAN POTASSIUM 50 MG TABLET PO SCH ×2 (09:25→17:09)
[2022-01-15] MEDS: NIFEDIPINE XL 60MG TAB PO SCH ×2 (09:26→17:09)
[2022-01-15 12:00] VITALS: BP 170/71
[2022-01-15] MEDS: GUAIFENESIN/CODEINE 200-20MG/10ML UDC PO PRN (12:24)
[2022-01-15] MEDS: INSULIN GLARGINE 100 UNITS/ML SUBCUT SCH ×2 (12:30→22:42)
[2022-01-15 13:31] LABS: HEMATOCRIT. 25.4 % (36.0-48.0); HEMOGLOBIN. 8.3 g/dL (12.0-16.0); MEAN CORPUSCULAR VOLUME 89.3 fL (81.0-99.0); MEAN PLATELET VOLUME 7.2 fl (7.4-10.4); PLATELET 852 x1000/uL (130-400); RED BLOOD CELL COUNT 2.84 mill/uL (4.2-5.4); RED CELL DISTRIBUTION WIDTH 16.5 % (11.6-14.6)
[2022-01-15 13:43] LABS: CHLORIDE 113 mEq/L (98-107)
[2022-01-15 14:18] LABS: PLATELET ESTIMATE MARKEDLY INCREASED
[2022-01-15] MEDS: MEROPENEM 1,000 MG in SODIUM CHLORIDE 0.9% 100 ML IV SCH (14:49)
[2022-01-15 16:00] VITALS: BP 166/85
[2022-01-15] MEDS ORDERED: FUROSEMIDE 40MG/4ML VIAL IVP NR (16:15)
[2022-01-15 20:00] VITALS: BP 161/81
[2022-01-16] VITALS: BP 141/76
[2022-01-16] MEDS: IPRATROPIUM BROMIDE (0.02%) 0.5MG/2.5ML NEB HHN SCH ×4 (00:47→22:03)
[2022-01-16] MEDS: MEROPENEM 1,000 MG in SODIUM CHLORIDE 0.9% 100 ML IV SCH ×2 (00:54→15:19)
[2022-01-16] MEDS: GUAIFENESIN/CODEINE 200-20MG/10ML UDC PO PRN ×3 (00:59→21:55)
[2022-01-16] MEDS: PANTOPRAZOLE SODIUM 40 MG/VIAL IV SCH ×2 (03:40→13:26)
[2022-01-16 04:00] VITALS: BP_SYST 120; BP_SYST 147; BP_DIAS 67; BP_DIAS 72
[2022-01-16] MEDS: AMPICILLIN 2,000 MG in SODIUM CHLORIDE 0.9% 100 ML IV SCH ×4 (05:43→22:21)
[2022-01-16] MEDS: INSULIN LISPRO 100 UNITS/ML SUBCUT SCH ×4 (05:44→22:20)
[2022-01-16] MEDS: BLOOD SUGAR DIAGNOSTIC STRIP TEST SCH ×4 (05:45→21:00)
[2022-01-16] MEDS: GABAPENTIN 300MG CAPSULE PO SCH ×3 (05:45→21:54)
[2022-01-16 07:02] LABS: HEMATOCRIT. 21.2 % (36.0-48.0); HEMOGLOBIN. 7.3 g/dL (12.0-16.0); MEAN CORPUSCULAR HEMOGLOBIN 30.5 pg (28.0-32.0); MEAN CORPUSCULAR VOLUME 89.2 fL (81.0-99.0); MEAN PLATELET VOLUME 7.3 fl (7.4-10.4); PLATELET 751 x1000/uL (130-400); RED BLOOD CELL COUNT 2.38 mill/uL (4.2-5.4); RED CELL DISTRIBUTION WIDTH 16.1 % (11.6-14.6)
[2022-01-16 08:00] VITALS: BP 156/87
[2022-01-16] MEDS: DOCUSATE SODIUM 250MG CAPSULE PO SCH (09:00)
[2022-01-16] MEDS: METOPROLOL TARTRATE 50MG TABLET PO SCH ×2 (10:06→21:51)
[2022-01-16] MEDS: LOSARTAN POTASSIUM 50 MG TABLET PO SCH ×2 (10:07→16:52)
[2022-01-16] MEDS: NIFEDIPINE XL 60MG TAB PO SCH ×2 (10:07→16:52)
[2022-01-16] MEDS: INSULIN GLARGINE 100 UNITS/ML SUBCUT SCH ×2 (10:10→22:20)
[2022-01-16] MEDS ORDERED: BENZONATATE 100MG CAPSULE PO PRN (10:45)
[2022-01-16 10:49] LABS: PLATELET ESTIMATE MARKEDLY INCREASED
[2022-01-16 12:00] VITALS: BP 165/88
[2022-01-16] MEDS: FUROSEMIDE 40MG/4ML VIAL IVP SCH (13:18)
[2022-01-16 16:00] VITALS: BP 158/90
[2022-01-16 20:00] VITALS: BP 151/83
[2022-01-16] MEDS: ZOLPIDEM TARTRATE 5MG TABLET PO PRN (21:56)
[2022-01-16] MEDS: DIPHENHYDRAMINE 50MG CAPSULE PO PRN (22:07)
[2022-01-17] VITALS: BP 114/64
[2022-01-17] MEDS: MEROPENEM 1,000 MG in SODIUM CHLORIDE 0.9% 100 ML IV SCH ×3 (00:36→21:56)
[2022-01-17] MEDS: IPRATROPIUM BROMIDE (0.02%) 0.5MG/2.5ML NEB HHN SCH ×4 (02:00→21:41)
[2022-01-17] MEDS: PANTOPRAZOLE SODIUM 40 MG/VIAL IV SCH ×2 (02:40→14:13)
[2022-01-17 04:00] VITALS: BP 114/64
[2022-01-17] MEDS: AMPICILLIN 2,000 MG in SODIUM CHLORIDE 0.9% 100 ML IV SCH ×3 (06:37→17:59)
[2022-01-17] MEDS: GABAPENTIN 300MG CAPSULE PO SCH ×3 (06:38→21:54)
[2022-01-17] MEDS: BLOOD SUGAR DIAGNOSTIC STRIP TEST SCH ×4 (06:39→21:53)
[2022-01-17] MEDS: INSULIN LISPRO 100 UNITS/ML SUBCUT SCH ×4 (06:39→22:08)
[2022-01-17 08:00] VITALS: BP 160/79
[2022-01-17] MEDS: FUROSEMIDE 40MG/4ML VIAL IVP SCH (09:51)
[2022-01-17] MEDS: LOSARTAN POTASSIUM 50 MG TABLET PO SCH ×2 (09:51→18:00)
[2022-01-17] MEDS: METOPROLOL TARTRATE 50MG TABLET PO SCH ×2 (09:52→21:56)
[2022-01-17] MEDS: DOCUSATE SODIUM 250MG CAPSULE PO SCH (09:52)
[2022-01-17] MEDS: NIFEDIPINE XL 60MG TAB PO SCH ×2 (09:53→18:00)
[2022-01-17] MEDS: INSULIN GLARGINE 100 UNITS/ML SUBCUT SCH ×2 (11:14→22:04)
[2022-01-17 11:26] LABS: BASOPHILS % 0.8 % (0.0-2.0); EOSINOPHILS % 1.2 % (0.0-5.0); HEMATOCRIT. 25.2 % (36.0-48.0); HEMOGLOBIN. 8.3 g/dL (12.0-16.0); LYMPHOCYTES % 20.8 % (20.0-50.0); MEAN CORPUSCULAR HEMOGLOBIN 29.5 pg (28.0-32.0); MEAN PLATELET VOLUME 7.3 fl (7.4-10.4); MONOCYTES % 6.6 % (2.0-8.0); NEUTROPHILS % 70.6 % (40.0-76.0); PLATELET 842 x1000/uL (130-400); RED BLOOD CELL COUNT 2.83 mill/uL (4.2-5.4); RED CELL DISTRIBUTION WIDTH 16.2 % (11.6-14.6)
[2022-01-17 11:51] LABS: CHLORIDE 109 mEq/L (98-107)
[2022-01-17 12:00] VITALS: BP 162/84
[2022-01-17] MEDS ORDERED: FUROSEMIDE 40MG/4ML VIAL IVP NR (13:45)
[2022-01-17] MEDS: CLONIDINE 0.1MG TABLET PO PRN (14:13)
[2022-01-17 16:00] VITALS: BP 158/85
[2022-01-17] MEDS: FUROSEMIDE 100MG/10ML VIAL IVP SCH (18:00)
[2022-01-17 20:00] VITALS: BP 122/69
[2022-01-17] MEDS: AMOXICILLIN/POTASSIUM CLAVULANATE 875/125MG TAB PO SCH ×2 (21:00→21:53)
[2022-01-17] MEDS: BENZONATATE 100MG CAPSULE PO SCH (22:02)
[2022-01-17] MEDS: ZOLPIDEM TARTRATE 5MG TABLET PO PRN (22:08)
[2022-01-17] MEDS: DIPHENHYDRAMINE 50MG CAPSULE PO PRN (22:08)
[2022-01-18] VITALS: BP 104/59
[2022-01-18] MEDS: PANTOPRAZOLE SODIUM 40 MG/VIAL IV SCH ×2 (02:26→13:48)
[2022-01-18] MEDS: IPRATROPIUM BROMIDE (0.02%) 0.5MG/2.5ML NEB HHN SCH ×4 (02:55→22:30)
[2022-01-18 04:00] VITALS: BP 137/75
[2022-01-18] MEDS: BENZONATATE 100MG CAPSULE PO SCH ×3 (05:36→22:31)
[2022-01-18] MEDS: MEROPENEM 1,000 MG in SODIUM CHLORIDE 0.9% 100 ML IV SCH ×3 (05:36→22:32)
[2022-01-18] MEDS: GABAPENTIN 300MG CAPSULE PO SCH ×3 (05:36→22:31)
[2022-01-18] MEDS: BLOOD SUGAR DIAGNOSTIC STRIP TEST SCH ×4 (06:04→21:00)
[2022-01-18] MEDS: INSULIN LISPRO 100 UNITS/ML SUBCUT SCH ×4 (06:05→22:46)
[2022-01-18 08:00] VITALS: BP 141/78
[2022-01-18] MEDS: FUROSEMIDE 100MG/10ML VIAL IVP SCH ×2 (10:08→18:07)
[2022-01-18] MEDS: LOSARTAN POTASSIUM 50 MG TABLET PO SCH ×2 (10:09→18:07)
[2022-01-18] MEDS: METOPROLOL TARTRATE 50MG TABLET PO SCH ×2 (10:09→22:32)
[2022-01-18] MEDS: DOCUSATE SODIUM 250MG CAPSULE PO SCH (10:10)
[2022-01-18] MEDS: AMOXICILLIN/POTASSIUM CLAVULANATE 875/125MG TAB PO SCH ×3 (10:10→22:31)
[2022-01-18] MEDS: NIFEDIPINE XL 60MG TAB PO SCH ×2 (10:10→18:07)
[2022-01-18] MEDS: INSULIN GLARGINE 100 UNITS/ML SUBCUT SCH ×2 (10:45→22:34)
[2022-01-18 12:00] VITALS: BP 121/65
[2022-01-18 16:00] VITALS: BP 137/75
[2022-01-18] MEDS ORDERED: METOLAZONE 2.5MG TABLET PO NR (19:00)
[2022-01-18 20:00] VITALS: BP 142/70
[2022-01-19] VITALS: BP 137/76
[2022-01-19] MEDS: PANTOPRAZOLE SODIUM 40 MG/VIAL IV SCH ×2 (02:43→14:25)
[2022-01-19 04:00] VITALS: BP 151/74
[2022-01-19] MEDS: BENZONATATE 100MG CAPSULE PO SCH ×3 (05:40→20:56)
[2022-01-19] MEDS: MEROPENEM 1,000 MG in SODIUM CHLORIDE 0.9% 100 ML IV SCH ×3 (05:40→20:56)
[2022-01-19] MEDS: GABAPENTIN 300MG CAPSULE PO SCH ×3 (05:40→20:58)
[2022-01-19] MEDS: BLOOD SUGAR DIAGNOSTIC STRIP TEST SCH ×4 (07:39→20:57)
[2022-01-19] MEDS: INSULIN LISPRO 100 UNITS/ML SUBCUT SCH ×4 (07:39→21:01)
[2022-01-19 08:00] VITALS: BP 147/85
[2022-01-19] MEDS: LOSARTAN POTASSIUM 50 MG TABLET PO SCH ×2 (08:49→17:22)
[2022-01-19] MEDS: FUROSEMIDE 100MG/10ML VIAL IVP SCH ×2 (08:49→17:23)
[2022-01-19] MEDS: METOPROLOL TARTRATE 50MG TABLET PO SCH ×2 (08:49→20:57)
[2022-01-19] MEDS: DOCUSATE SODIUM 250MG CAPSULE PO SCH (08:49)
[2022-01-19] MEDS: NIFEDIPINE XL 60MG TAB PO SCH ×2 (08:49→17:22)
[2022-01-19] MEDS: AMOXICILLIN/POTASSIUM CLAVULANATE 875/125MG TAB PO SCH ×2 (08:51→21:00)
[2022-01-19] MEDS: IPRATROPIUM BROMIDE (0.02%) 0.5MG/2.5ML NEB HHN SCH ×3 (09:57→21:24)
[2022-01-19] MEDS: INSULIN GLARGINE 100 UNITS/ML SUBCUT SCH ×2 (11:42→21:00)
[2022-01-19] MEDS: CLONIDINE 0.1MG TABLET PO PRN (11:45)
[2022-01-19 12:00] VITALS: BP 162/89
[2022-01-19 16:00] VITALS: BP 123/75
[2022-01-19 20:00] VITALS: BP 133/81
[2022-01-20] VITALS: BP 113/61
[2022-01-20] MEDS: IPRATROPIUM BROMIDE (0.02%) 0.5MG/2.5ML NEB HHN SCH ×3 (01:57→14:47)
[2022-01-20] MEDS: PANTOPRAZOLE SODIUM 40 MG/VIAL IV SCH ×2 (02:06→13:04)
[2022-01-20 04:00] VITALS: BP 114/70
[2022-01-20] MEDS: GABAPENTIN 300MG CAPSULE PO SCH ×3 (05:35→21:32)
[2022-01-20] MEDS: MEROPENEM 1,000 MG in SODIUM CHLORIDE 0.9% 100 ML IV SCH ×3 (05:35→21:31)
[2022-01-20] MEDS: BENZONATATE 100MG CAPSULE PO SCH ×3 (05:35→21:32)
[2022-01-20] MEDS: BLOOD SUGAR DIAGNOSTIC STRIP TEST SCH ×4 (05:35→21:42)
[2022-01-20] MEDS: INSULIN LISPRO 100 UNITS/ML SUBCUT SCH ×4 (05:35→21:33)
[2022-01-20 08:00] VITALS: BP 109/62
[2022-01-20] MEDS: NIFEDIPINE XL 60MG TAB PO SCH ×3 (09:00→17:00)
[2022-01-20] MEDS: METOPROLOL TARTRATE 50MG TABLET PO SCH ×2 (09:00→21:00)
[2022-01-20] MEDS: LOSARTAN POTASSIUM 50 MG TABLET PO SCH ×2 (09:00→17:00)
[2022-01-20] MEDS: DOCUSATE SODIUM 250MG CAPSULE PO SCH (10:16)
[2022-01-20] MEDS: FUROSEMIDE 100MG/10ML VIAL IVP SCH ×2 (10:16→17:00)
[2022-01-20] MEDS: AMOXICILLIN/POTASSIUM CLAVULANATE 875/125MG TAB PO SCH ×2 (10:16→21:00)
[2022-01-20] MEDS: INSULIN GLARGINE 100 UNITS/ML SUBCUT SCH ×2 (10:27→21:33)
[2022-01-20 12:00] VITALS: BP 118/68
[2022-01-20] MEDS ORDERED: IPRATROPIUM/ALBUTEROL 0.5-3(2.5)MG/3ML NEB HHN PRN (14:30)
[2022-01-20 16:00] VITALS: BP 128/71
[2022-01-20 19:14] LABS: BASOPHILS % 0.7 % (0.0-2.0); EOSINOPHILS % 1.9 % (0.0-5.0); HEMATOCRIT. 26.3 % (36.0-48.0); HEMOGLOBIN. 8.7 g/dL (12.0-16.0); MEAN CORPUSCULAR HEMOGLOBIN 29.4 pg (28.0-32.0); MEAN CORPUSCULAR VOLUME 89.4 fL (81.0-99.0); MEAN PLATELET VOLUME 7.3 fl (7.4-10.4); MONOCYTES % 7.5 % (2.0-8.0); NEUTROPHILS % 66.9 % (40.0-76.0); PLATELET 811 x1000/uL (130-400); RED BLOOD CELL COUNT 2.94 mill/uL (4.2-5.4); RED CELL DISTRIBUTION WIDTH 16.1 % (11.6-14.6)
[2022-01-20 19:31] LABS: CHLORIDE 97 mEq/L (98-107)
[2022-01-20 20:00] VITALS: BP 119/66
[2022-01-20] MEDS: ACETYLCYSTEINE 100MG/ML 10% VIAL 4ML INH SCH (20:58)
[2022-01-20] MEDS: IPRATROPIUM/ALBUTEROL 0.5-3(2.5)MG/3ML NEB HHN SCH (20:58)
[2022-01-21] VITALS (7 sets, daily range): BP systolic 108–160; BP diastolic 63–81
[2022-01-21] MEDS: IPRATROPIUM/ALBUTEROL 0.5-3(2.5)MG/3ML NEB HHN SCH ×3 (01:14→14:46)
[2022-01-21] MEDS: PANTOPRAZOLE SODIUM 40 MG/VIAL IV SCH ×2 (02:18→14:13)
[2022-01-21] MEDS: BENZONATATE 100MG CAPSULE PO SCH ×2 (05:43→14:14)
[2022-01-21] MEDS: MEROPENEM 1,000 MG in SODIUM CHLORIDE 0.9% 100 ML IV SCH ×2 (05:43→14:14)
[2022-01-21] MEDS: GABAPENTIN 300MG CAPSULE PO SCH ×2 (05:43→14:14)
[2022-01-21] MEDS: BLOOD SUGAR DIAGNOSTIC STRIP TEST SCH ×3 (05:44→17:10)
[2022-01-21] MEDS: INSULIN LISPRO 100 UNITS/ML SUBCUT SCH ×3 (05:44→18:51)
[2022-01-21] MEDS: ACETYLCYSTEINE 100MG/ML 10% VIAL 4ML INH SCH ×2 (07:44→14:47)
[2022-01-21] MEDS: AMOXICILLIN/POTASSIUM CLAVULANATE 875/125MG TAB PO SCH (09:00)
[2022-01-21] MEDS: DOCUSATE SODIUM 250MG CAPSULE PO SCH (09:00)
[2022-01-21] MEDS: FUROSEMIDE 100MG/10ML VIAL IVP SCH ×2 (09:32→17:00)
[2022-01-21] MEDS: INSULIN GLARGINE 100 UNITS/ML SUBCUT SCH (09:33)
[2022-01-21] MEDS: METOPROLOL TARTRATE 50MG TABLET PO SCH (09:35)
[2022-01-21] MEDS: NIFEDIPINE XL 60MG TAB PO SCH ×2 (09:37→17:00)
[2022-01-21] MEDS: LOSARTAN POTASSIUM 50 MG TABLET PO SCH ×2 (09:42→17:00)
[2022-01-21] MEDS ORDERED: IOHEXOL-300 50 ML BOTTLE IV ONE (13:29)
[2022-01-21] MEDS ORDERED: LACTULOSE 20G/30ML UDC PO NR ×2 (17:52→18:30)
== END 2022-01-21 21:05 | disposition home or self-care (01) | DRG 721 ==
LOC: ER 14:47 → 8WST 18:21 → ENRESERV 21:12
PROVIDERS: ADMIT Internal Medicine; ATTEND Internal Medicine
PROC: 0F943ZX Drainage of Gallbladder, Percutaneous Approach, Diagnostic (ICD-10-PCS; principal; 2022-01-07)
PROC: BD11ZZZ Fluoroscopy of Esophagus (ICD-10-PCS; 2022-01-09)
PROC: 0W9G30Z Drainage of Peritoneal Cavity with Drainage Device, Percutaneous Approach (ICD-10-PCS; 2022-01-11)
PROC: 02H633Z Insertion of Infusion Device into Right Atrium, Percutaneous Approach (ICD-10-PCS; 2022-01-12)
DX: T81.43XA Infection following a procedure, organ and space surgical site, initial encounter (principal); J96.01 Acute respiratory failure with hypoxia; N17.0 Acute kidney failure with tubular necrosis; K65.1 Peritoneal abscess; E44.0 Moderate protein-calorie malnutrition; A41.9 Sepsis, unspecified organism; K81.0 Acute cholecystitis; J18.9 Pneumonia, unspecified organism; J90 Pleural effusion, not elsewhere classified; E11.22 Type 2 diabetes mellitus with diabetic chronic kidney disease; K31.84 Gastroparesis; E87.8 Other disorders of electrolyte and fluid balance, not elsewhere classified; E11.43 Type 2 diabetes mellitus with diabetic autonomic (poly)neuropathy; D64.9 Anemia, unspecified; E78.5 Hyperlipidemia, unspecified; E87.5 Hyperkalemia; I12.9 Hypertensive chronic kidney disease with stage 1 through stage 4 chronic kidney disease, or unspecified chronic kidney disease; Z20.822 Contact with and (suspected) exposure to COVID-19; M48.02 Spinal stenosis, cervical region; N18.9 Chronic kidney disease, unspecified; L02.91 Cutaneous abscess, unspecified; R74.01 Elevation of levels of liver transaminase levels; J44.0 Chronic obstructive pulmonary disease with (acute) lower respiratory infection; R13.10 Dysphagia, unspecified; Z87.891 Personal history of nicotine dependence; Z88.5 Allergy status to narcotic agent; Z79.899 Other long term (current) drug therapy; Z79.4 Long term (current) use of insulin; Z79.82 Long term (current) use of aspirin; Z90.49 Acquired absence of other specified parts of digestive tract; Z68.23 Body mass index [BMI] 23.0-23.9, adult
CPT/HCPCS: 36415; 36600; 49180; 71045; 71046; 74018; 74176; 74177; 74220; 76937; 77012; 78227; 78582; 80048; 80053; 80202; 81003; 82375; 82550; 82607; 82728; 82746; 82805; 82962; 83036; 83540; 83550; 83605; 83880; 84145; 85025; 85044; 87070; 87075; 87077; 87186; 87426; 93005; 93306; 94640; 94664; 97162; 99291; A9537; A9558; C1725; C1729; C1769; C1893; C9113; J0290; J0360; J0696; J1200; J1815; J1940; J2060; J2185; J2270; J2405; J2543; J3010; J3370; J3490; J7030; J7050; J7060; J7608; L8514; Q0163; Q9963; Q9967

== ENCOUNTER 2022-02-20 19:19 | Inpatient (IN) | payer MEDICAID ==
[~2022-02-20] VITALS: Ht 162.6 cm; Wt 60.3 kg
[2022-02-20 20:14] LABS: BASOPHILS % 0.7 % (0.0-2.0); EOSINOPHILS % 4.5 % (0.0-5.0); HEMATOCRIT. 33.3 % (36.0-48.0); HEMOGLOBIN. 11.2 g/dL (12.0-16.0); LYMPHOCYTES % 38.4 % (20.0-50.0); MEAN CORPUSCULAR HEMOGLOBIN 29.3 pg (28.0-32.0); MEAN CORPUSCULAR VOLUME 86.9 fL (81.0-99.0); MEAN PLATELET VOLUME 8.5 fl (7.4-10.4); MONOCYTES % 6.2 % (2.0-8.0); NEUTROPHILS % 50.2 % (40.0-76.0); PLATELET 411 x1000/uL (130-400); RED BLOOD CELL COUNT 3.83 mill/uL (4.2-5.4); RED CELL DISTRIBUTION WIDTH 15.5 % (11.6-14.6)
[2022-02-20 20:18] LABS: PROTHROMBIN TIME 10.6 sec (9.6-11.0)
[2022-02-20 20:21] LABS: CHLORIDE 97 mEq/L (98-107)
[2022-02-20] MEDS ORDERED: SODIUM CHLORIDE 0.9% 1000ML BAG (SEPSIS BOLUS) IV ONE (23:00)
[2022-02-21] VITALS (15 sets, daily range): BP systolic 67–127; BP diastolic 42–83
[2022-02-21] MEDS ORDERED: ONDANSETRON HCL 4MG/2ML INJ IV PRN (06:00)
[2022-02-21] MEDS ORDERED: INSULIN GLARGINE 100 UNITS/ML SUBCUT NR ×2 (11:00→13:00)
[2022-02-21] MEDS ORDERED: DEXTROSE 50% WATER 50ML SYRINGE IV PRN (11:00)
[2022-02-21] MEDS ORDERED: NALOXONE HCL 0.4MG/ML VIAL IV PRN (11:15)
[2022-02-21] MEDS: INSULIN LISPRO 100 UNITS/ML SUBCUT SCH ×4 (12:12→20:42)
[2022-02-21] MEDS: BLOOD SUGAR DIAGNOSTIC STRIP TEST SCH ×3 (12:20→20:42)
[2022-02-21] MEDS: METOPROLOL TARTRATE 50MG TABLET PO SCH ×2 (12:20→17:13)
[2022-02-21] MEDS ORDERED: DILTIAZEM HCL 5MG/ML 5ML VIAL IV NR (13:00)
[2022-02-21] MEDS: SODIUM CHLORIDE 0.9% 1,000 ML IV SCH (13:41)
[2022-02-21] MEDS ORDERED: PIPERACILLIN/TAZOBACTAM 3.375 G in DEXTROSE 5% WATER 50 ML IV SCH (14:00)
[2022-02-21] MEDS ORDERED: BISACODYL 10MG SUPP PR NR (16:15)
[2022-02-21] MEDS: MEROPENEM 1,000 MG in SODIUM CHLORIDE 0.9% 100 ML IV SCH (17:55)
[2022-02-21] MEDS: DILTIAZEM HCL 30MG TABLET PO SCH (17:55)
[2022-02-21 18:35] LABS: T4 FREE 1.11 ng/dL (0.76-1.46)
[2022-02-21 20:28] LABS: CLARITY URINE CLEAR (CLEAR); COLOR URINE YELLOW (YELLOW); KETONES URINE 1+ (NEGATIVE); LEUKOCYTE ESTERASE URINE NEGATIVE (NEGATIVE); NITRITE URINE NEGATIVE (NEGATIVE); OCCULT BLOOD URINE NEGATIVE (NEGATIVE); PROTEIN URINE NEGATIVE (NEGATIVE); SPECIFIC GRAVITY URINE 1.022 (1.005-1.030); UROBILINOGEN URINE 0.2 E.U./dL (0.2-1.0)
[2022-02-21 20:42] LABS: *AMPHETAMINES SCREEN URINE NEGATIVE (NEGATIVE); *BARBITURATES SCREEN URINE NEGATIVE (NEGATIVE); *BENZODIAZEPINES SCREEN URINE NEGATIVE (NEGATIVE); *COCAINE SCREEN URINE NEGATIVE (NEGATIVE); CANNABINOID URINE SCREEN NEGATIVE (NEGATIVE); METHADONE URINE SCREEN NEGATIVE (NEGATIVE); OPIATES URINE SCREEN NEGATIVE (NEGATIVE); PHENCYCLIDINE URINE SCREEN NEGATIVE (NEGATIVE)
[2022-02-21] MEDS: INSULIN GLARGINE 100 UNITS/ML SUBCUT SCH (21:43)
[2022-02-21] MEDS ORDERED: DOPAMINE 400MG/250ML PREMIX 250 ML IV PRN (22:45)
[2022-02-21] MEDS ORDERED: SODIUM CHLORIDE 0.9% 250 ML IV ONE ×2 (22:57→23:00)
[2022-02-21] MEDS ORDERED: INSULIN REGULAR (HUMULIN R) 300UNITS/3ML VIAL SUBCUT NR (23:00)
[2022-02-22] VITALS (69 sets, daily range): BP systolic 82–178; BP diastolic 51–96
[2022-02-22] MEDS: SODIUM CHLORIDE 0.9% 1,000 ML IV SCH ×3 (04:16→20:49)
[2022-02-22] MEDS: DILTIAZEM HCL 30MG TABLET PO SCH ×3 (06:00→12:00)
[2022-02-22 06:02] LABS: BASOPHILS % 0.5 % (0.0-2.0); EOSINOPHILS % 0.9 % (0.0-5.0); HEMATOCRIT. 31.7 % (36.0-48.0); HEMOGLOBIN. 10.4 g/dL (12.0-16.0); LYMPHOCYTES % 28.1 % (20.0-50.0); MEAN CORPUSCULAR HEMOGLOBIN 28.4 pg (28.0-32.0); MEAN CORPUSCULAR VOLUME 86.9 fL (81.0-99.0); MEAN PLATELET VOLUME 8.5 fl (7.4-10.4); MONOCYTES % 6.2 % (2.0-8.0); NEUTROPHILS % 64.3 % (40.0-76.0); PLATELET 390 x1000/uL (130-400); RED BLOOD CELL COUNT 3.65 mill/uL (4.2-5.4); RED CELL DISTRIBUTION WIDTH 15.3 % (11.6-14.6)
[2022-02-22] MEDS: MEROPENEM 1,000 MG in SODIUM CHLORIDE 0.9% 100 ML IV SCH ×2 (06:17→18:33)
[2022-02-22] MEDS: BLOOD SUGAR DIAGNOSTIC STRIP TEST SCH ×4 (06:17→21:00)
[2022-02-22] MEDS: INSULIN LISPRO 100 UNITS/ML SUBCUT SCH ×7 (06:17→22:24)
[2022-02-22] MEDS ORDERED: SORBITOL 70% SOLN 30ML PO NR (08:00)
[2022-02-22] MEDS: METOPROLOL TARTRATE 50MG TABLET PO SCH (09:00)
[2022-02-22] MEDS ORDERED: MIDODRINE HCL 2.5MG TABLET PO SCH (09:45)
[2022-02-22] MEDS: INSULIN GLARGINE 100 UNITS/ML SUBCUT SCH ×2 (10:21→22:24)
[2022-02-22] MEDS ORDERED: NA PHOS,M-B/NA PHOS,DI-BA ENEMA 118ML PR NR (14:45)
[2022-02-22] MEDS: LACTULOSE 20G/30ML UDC PO PRN ×2 (15:59→22:47)
[2022-02-22] MEDS ORDERED: LACTULOSE 20G/30ML UDC PO SCH (18:00)
[2022-02-22] MEDS: DIGOXIN 125MCG TABLET PO SCH (18:33)
[2022-02-23] VITALS (45 sets, daily range): BP systolic 105–188; BP diastolic 60–105
[2022-02-23] MEDS: METOCLOPRAMIDE HCL 10MG/2ML VIAL IV SCH ×4 (00:28→17:35)
[2022-02-23 06:00] LABS: BASOPHILS % 0.4 % (0.0-2.0); EOSINOPHILS % 4.3 % (0.0-5.0); HEMATOCRIT. 27.7 % (36.0-48.0); HEMOGLOBIN. 9.1 g/dL (12.0-16.0); LYMPHOCYTES % 43.3 % (20.0-50.0); MEAN CORPUSCULAR HEMOGLOBIN 28.9 pg (28.0-32.0); MEAN CORPUSCULAR VOLUME 87.7 fL (81.0-99.0); MEAN PLATELET VOLUME 8.4 fl (7.4-10.4); PLATELET 318 x1000/uL (130-400); RED BLOOD CELL COUNT 3.16 mill/uL (4.2-5.4); RED CELL DISTRIBUTION WIDTH 15.6 % (11.6-14.6)
[2022-02-23] MEDS: SODIUM CHLORIDE 0.9% 1,000 ML IV SCH ×2 (06:25→16:14)
[2022-02-23] MEDS: MEROPENEM 1,000 MG in SODIUM CHLORIDE 0.9% 100 ML IV SCH ×2 (06:25→17:35)
[2022-02-23] MEDS: LACTULOSE 20G/30ML UDC PO PRN ×2 (06:26→12:22)
[2022-02-23 06:44] LABS: DIGOXIN 0.3 ng/mL (0.9-2.0)
[2022-02-23] MEDS: INSULIN LISPRO 100 UNITS/ML SUBCUT SCH ×7 (07:50→21:03)
[2022-02-23] MEDS: BLOOD SUGAR DIAGNOSTIC STRIP TEST SCH ×4 (07:53→21:07)
[2022-02-23] MEDS: INSULIN GLARGINE 100 UNITS/ML SUBCUT SCH ×2 (10:00→22:51)
[2022-02-23] MEDS: AMLODIPINE 10MG TABLET PO SCH (12:20)
[2022-02-23] MEDS: HYDRALAZINE HCL 100MG TABLET PO SCH ×2 (15:16→20:59)
[2022-02-23] MEDS: TRAMADOL 50MG TABLET PO PRN ×2 (15:18→21:01)
[2022-02-23] MEDS: DIGOXIN 125MCG TABLET PO SCH (17:35)
[2022-02-23] MEDS: LOSARTAN POTASSIUM 50 MG TABLET PO SCH (20:59)
[2022-02-24] VITALS (27 sets, daily range): BP systolic 122–184; BP diastolic 62–98
[2022-02-24] MEDS: METOCLOPRAMIDE HCL 10MG/2ML VIAL IV SCH ×5 (00:21→23:45)
[2022-02-24] MEDS: SODIUM CHLORIDE 0.9% 1,000 ML IV SCH ×3 (03:27→23:47)
[2022-02-24] MEDS: CLONIDINE 0.1MG TABLET PO PRN ×2 (05:13→11:40)
[2022-02-24] MEDS: MEROPENEM 1,000 MG in SODIUM CHLORIDE 0.9% 100 ML IV SCH ×2 (06:21→18:33)
[2022-02-24] MEDS: INSULIN LISPRO 100 UNITS/ML SUBCUT SCH ×7 (08:20→21:00)
[2022-02-24] MEDS: BLOOD SUGAR DIAGNOSTIC STRIP TEST SCH ×4 (08:41→21:26)
[2022-02-24] MEDS ORDERED: LOSARTAN POTASSIUM 50 MG TABLET PO SCH (09:00)
[2022-02-24] MEDS: HYDRALAZINE HCL 100MG TABLET PO SCH ×2 (09:07→21:15)
[2022-02-24] MEDS: AMLODIPINE 10MG TABLET PO SCH (09:07)
[2022-02-24] MEDS: LOSARTAN POTASSIUM 50 MG TABLET PO SCH (09:07)
[2022-02-24] MEDS: INSULIN GLARGINE 100 UNITS/ML SUBCUT SCH ×2 (09:11→21:27)
[2022-02-24] MEDS ORDERED: BISACODYL 5MG TABLET PO NR (10:45)
[2022-02-24 12:28] LABS: BASOPHILS % 0.5 % (0.0-2.0); EOSINOPHILS % 3.1 % (0.0-5.0); HEMATOCRIT. 30.7 % (36.0-48.0); HEMOGLOBIN. 10.2 g/dL (12.0-16.0); LYMPHOCYTES % 29.9 % (20.0-50.0); MEAN CORPUSCULAR HEMOGLOBIN 28.7 pg (28.0-32.0); MEAN CORPUSCULAR VOLUME 86.4 fL (81.0-99.0); MEAN PLATELET VOLUME 8.5 fl (7.4-10.4); MONOCYTES % 5.1 % (2.0-8.0); NEUTROPHILS % 61.4 % (40.0-76.0); PLATELET 308 x1000/uL (130-400); RED BLOOD CELL COUNT 3.56 mill/uL (4.2-5.4); RED CELL DISTRIBUTION WIDTH 15.2 % (11.6-14.6)
[2022-02-24 12:37] LABS: CHLORIDE 111 mEq/L (98-107)
[2022-02-24] MEDS: METOPROLOL TARTRATE 50MG TABLET PO SCH (18:13)
[2022-02-24] MEDS: DIGOXIN 125MCG TABLET PO SCH (18:13)
[2022-02-25] VITALS: BP 127/62
[2022-02-25 04:00] VITALS: BP 125/67
[2022-02-25] MEDS: MEROPENEM 1,000 MG in SODIUM CHLORIDE 0.9% 100 ML IV SCH (06:01)
[2022-02-25] MEDS: METOCLOPRAMIDE HCL 10MG/2ML VIAL IV SCH ×2 (06:01→13:13)
[2022-02-25] MEDS: BLOOD SUGAR DIAGNOSTIC STRIP TEST SCH ×2 (06:09→13:22)
[2022-02-25 06:23] LABS: BASOPHILS % 0.6 % (0.0-2.0); EOSINOPHILS % 4.8 % (0.0-5.0); HEMATOCRIT. 28.3 % (36.0-48.0); HEMOGLOBIN. 9.5 g/dL (12.0-16.0); LYMPHOCYTES % 36.7 % (20.0-50.0); MEAN CORPUSCULAR VOLUME 86.8 fL (81.0-99.0); MEAN PLATELET VOLUME 8.8 fl (7.4-10.4); MONOCYTES % 5.5 % (2.0-8.0); NEUTROPHILS % 52.4 % (40.0-76.0); PLATELET 279 x1000/uL (130-400); RED BLOOD CELL COUNT 3.26 mill/uL (4.2-5.4); RED CELL DISTRIBUTION WIDTH 15.3 % (11.6-14.6)
[2022-02-25 06:44] LABS: CHLORIDE 111 mEq/L (98-107)
[2022-02-25] MEDS: INSULIN LISPRO 100 UNITS/ML SUBCUT SCH ×4 (07:40→13:22)
[2022-02-25 08:00] VITALS: BP 159/83
[2022-02-25] MEDS: AMLODIPINE 10MG TABLET PO SCH (09:18)
[2022-02-25] MEDS: HYDRALAZINE HCL 100MG TABLET PO SCH (09:18)
[2022-02-25] MEDS: LOSARTAN POTASSIUM 50 MG TABLET PO SCH (09:18)
[2022-02-25] MEDS: METOPROLOL TARTRATE 50MG TABLET PO SCH (09:19)
[2022-02-25] MEDS: SODIUM CHLORIDE 0.9% 1,000 ML IV SCH (09:26)
[2022-02-25] MEDS: INSULIN GLARGINE 100 UNITS/ML SUBCUT SCH (10:13)
[2022-02-25 12:00] VITALS: BP 131/72
[2022-02-25] MEDS ORDERED: METO-539 PO (12:42)
[2022-02-25 14:09] VITALS: BP 131/71
== END 2022-02-25 14:45 | disposition home or self-care (01) | DRG 720 ==
LOC: ER 19:19 → 8WST 02-21 02:23 → ENRESERV 02-21 07:44 → CVICU 02-21 22:10 → 7WST 02-24 13:11
PROVIDERS: ADMIT Internal Medicine; ATTEND Internal Medicine
DX: A41.9 Sepsis, unspecified organism (principal); R65.21 Severe sepsis with septic shock; N17.9 Acute kidney failure, unspecified; E11.10 Type 2 diabetes mellitus with ketoacidosis without coma; I13.0 Hypertensive heart and chronic kidney disease with heart failure and stage 1 through stage 4 chronic kidney disease, or unspecified chronic kidney disease; I50.32 Chronic diastolic (congestive) heart failure; E87.1 Hypo-osmolality and hyponatremia; I47.1 Supraventricular tachycardia; D63.1 Anemia in chronic kidney disease; K56.49 Other impaction of intestine; E11.22 Type 2 diabetes mellitus with diabetic chronic kidney disease; E87.8 Other disorders of electrolyte and fluid balance, not elsewhere classified; N18.9 Chronic kidney disease, unspecified; E87.5 Hyperkalemia; J44.9 Chronic obstructive pulmonary disease, unspecified; E78.5 Hyperlipidemia, unspecified; M48.00 Spinal stenosis, site unspecified; E86.9 Volume depletion, unspecified; K31.84 Gastroparesis; R10.11 Right upper quadrant pain; Z79.4 Long term (current) use of insulin; Z88.6 Allergy status to analgesic agent; Z90.49 Acquired absence of other specified parts of digestive tract; Z82.49 Family history of ischemic heart disease and other diseases of the circulatory system
CPT/HCPCS: 36415; 71045; 74176; 76705; 80048; 80053; 80061; 80162; 80305; 81003; 82947; 82962; 83735; 84145; 84439; 84443; 84480; 85025; 93005; 97162; 97165; 97535; 99285; J1265; J1815; J2185; J2405; J2543; J2765; J3490; J7030; J7050; J7060

== ENCOUNTER 2022-04-24 12:51 | Inpatient (IN) | payer MEDICAID ==
[~2022-04-24] VITALS: Ht 162.6 cm; Wt 64.0 kg
[~2022-04-24 12:51] MED LIST changes: +METO-539 PO
[2022-04-24] MEDS ORDERED: SODIUM CHLORIDE 0.9% 1,000 ML IV ONE (13:00)
[2022-04-24 13:17] LABS: BASOPHILS % 0.9 % (0.0-2.0); HEMATOCRIT. 33.9 % (36.0-48.0); HEMOGLOBIN. 11.1 g/dL (12.0-16.0); MEAN CORPUSCULAR VOLUME 88.9 fL (81.0-99.0); MEAN PLATELET VOLUME 8.3 fl (7.4-10.4); MONOCYTES % 7.8 % (2.0-8.0); NEUTROPHILS % 52.3 % (40.0-76.0); PLATELET 306 x1000/uL (130-400); RED BLOOD CELL COUNT 3.81 mill/uL (4.2-5.4)
[2022-04-24 13:26] LABS: PROTHROMBIN TIME 10.5 sec (9.6-11.0)
[2022-04-24 13:31] LABS: CHLORIDE 106 mEq/L (98-107)
[2022-04-24 13:51] LABS: CLARITY URINE CLEAR (CLEAR); COLOR URINE YELLOW (YELLOW); KETONES URINE TRACE (NEGATIVE); LEUKOCYTE ESTERASE URINE NEGATIVE (NEGATIVE); NITRITE URINE NEGATIVE (NEGATIVE); OCCULT BLOOD URINE TRACE (NEGATIVE); PROTEIN URINE 2+ (NEGATIVE); SPECIFIC GRAVITY URINE 1.025 (1.005-1.030); UROBILINOGEN URINE 0.2 E.U./dL (0.2-1.0)
[2022-04-24] MEDS ORDERED: PIPERACILLIN/TAZ 3.375G PREMIX 50 ML IV ONE (14:00)
[2022-04-24] MEDS ORDERED: VANCOMYCIN 1G PREMIX 200 ML IV ONE (14:00)
[2022-04-24] MEDS ORDERED: VANCOMYCIN 1GM PMX (XELLIA) 200 ML IV NR (14:30)
[2022-04-24] MEDS ORDERED: DEXTROSE 50% WATER 50ML SYRINGE IV PRN (16:30)
[2022-04-24] MEDS ORDERED: CLONIDINE 0.1MG TABLET PO PRN (16:30)
[2022-04-24] MEDS ORDERED: DIPHENHYDRAMINE 50MG/ML VIAL IV PRN (16:30)
[2022-04-24] MEDS ORDERED: ONDANSETRON HCL 4MG/2ML INJ IV PRN (16:30)
[2022-04-24] MEDS ORDERED: HYDROCODONE/ACETAMINOPHEN 5/325MG TABLET PO PRN (16:30)
[2022-04-24] MEDS ORDERED: IPRATROPIUM/ALBUTEROL 0.5-3(2.5)MG/3ML NEB HHN PRN (16:30)
[2022-04-24] MEDS ORDERED: DOCUSATE SODIUM 100MG CAPSULE PO PRN (16:30)
[2022-04-24] MEDS ORDERED: GUAIFENESIN 200MG/10ML SUGAR FREE UDC PO PRN (16:30)
[2022-04-24] MEDS ORDERED: MAGNESIUM/ALUMINUM HYDROXIDE/SIMETHICONE 30ML UDC PO PRN (16:30)
[2022-04-24] MEDS ORDERED: ACETAMINOPHEN 325MG TABLET PO PRN (16:30)
[2022-04-24] MEDS ORDERED: CEFTRIAXONE 1 G PREMIX 50 ML IV SCH (17:00)
[2022-04-24] MEDS: BLOOD SUGAR DIAGNOSTIC STRIP TEST SCH ×2 (17:04→21:08)
[2022-04-24] MEDS: ENOXAPARIN 40MG/0.4ML SYR SUBCUT SCH (17:26)
[2022-04-24] MEDS: SODIUM CHLORIDE 0.45% 1,000 ML IV SCH ×2 (17:30→22:53)
[2022-04-24] MEDS: INSULIN LISPRO 100 UNITS/ML SUBCUT SCH ×2 (18:15→21:00)
[2022-04-24] MEDS: CEFTRIAXONE 1,000 MG in DEXTROSE 5% WATER 50 ML IV SCH (18:45)
[2022-04-24] MEDS: SODIUM CHLORIDE 0.9% INJ 3ML FLUSH IVF SCH (22:00)
[2022-04-24] MEDS: GABAPENTIN 300MG CAPSULE PO SCH (22:00)
[2022-04-25] MEDS: HYDRALAZINE 20MG/ML VIAL IV PRN ×2 (02:18→12:12)
[2022-04-25 03:35] VITALS: BP 164/95
[2022-04-25] MEDS: SODIUM CHLORIDE 0.9% INJ 3ML FLUSH IVF SCH ×2 (05:54→14:00)
[2022-04-25] MEDS: BLOOD SUGAR DIAGNOSTIC STRIP TEST SCH ×4 (06:02→21:16)
[2022-04-25 06:32] LABS: BASOPHILS % 0.7 % (0.0-2.0); EOSINOPHILS % 6.2 % (0.0-5.0); HEMATOCRIT. 31.7 % (36.0-48.0); HEMOGLOBIN. 10.6 g/dL (12.0-16.0); LYMPHOCYTES % 37.1 % (20.0-50.0); MEAN CORPUSCULAR HEMOGLOBIN 29.3 pg (28.0-32.0); MEAN CORPUSCULAR VOLUME 87.6 fL (81.0-99.0); MEAN PLATELET VOLUME 8.1 fl (7.4-10.4); MONOCYTES % 5.7 % (2.0-8.0); NEUTROPHILS % 50.3 % (40.0-76.0); PLATELET 320 x1000/uL (130-400); RED BLOOD CELL COUNT 3.62 mill/uL (4.2-5.4); RED CELL DISTRIBUTION WIDTH 15.8 % (11.6-14.6)
[2022-04-25 06:57] LABS: CHLORIDE 108 mEq/L (98-107)
[2022-04-25 08:01] VITALS: BP 165/84
[2022-04-25] MEDS: INSULIN LISPRO 100 UNITS/ML SUBCUT SCH ×4 (09:15→20:59)
[2022-04-25 12:00] VITALS: BP 203/103
[2022-04-25] MEDS ORDERED: HYDRALAZINE 20MG/ML VIAL IV PRN (12:30)
[2022-04-25] MEDS: AMLODIPINE 10MG TABLET PO SCH (12:30)
[2022-04-25] MEDS ORDERED: METOPROLOL TARTRATE 50MG TABLET PO SCH (12:30)
[2022-04-25 13:40] VITALS: BP 117/65
[2022-04-25] MEDS: GABAPENTIN 300MG CAPSULE PO SCH (13:53)
[2022-04-25] MEDS: METOPROLOL TARTRATE 100MG TABLET PO SCH ×2 (13:53→20:47)
[2022-04-25] MEDS: ASPIRIN 81MG EC TABLET PO SCH (13:53)
[2022-04-25] MEDS: TAMSULOSIN HCL 0.4MG SR CAPSULE PO SCH (13:55)
[2022-04-25] MEDS: LOSARTAN POTASSIUM 50 MG TABLET PO SCH ×2 (13:59→17:57)
[2022-04-25 16:00] VITALS: BP 131/75
[2022-04-25] MEDS ORDERED: CLONIDINE 0.2MG TABLET PO PRN (16:30)
[2022-04-25] MEDS: CEFTRIAXONE 1,000 MG in DEXTROSE 5% WATER 50 ML IV SCH (17:57)
[2022-04-25] MEDS: ENOXAPARIN 40MG/0.4ML SYR SUBCUT SCH (17:59)
[2022-04-25] MEDS: ATORVASTATIN CALCIUM 20MG TABLET PO SCH (21:09)
[2022-04-25 22:00] VITALS: BP 101/52
[2022-04-26] VITALS (9 sets, daily range): BP systolic 110–161; BP diastolic 56–90
[2022-04-26] MEDS: SODIUM CHLORIDE 0.9% INJ 3ML FLUSH IVF SCH ×3 (05:38→21:09)
[2022-04-26] MEDS: GABAPENTIN 300MG CAPSULE PO SCH ×3 (05:42→21:09)
[2022-04-26] MEDS: BLOOD SUGAR DIAGNOSTIC STRIP TEST SCH ×4 (07:26→21:09)
[2022-04-26] MEDS: INSULIN LISPRO 100 UNITS/ML SUBCUT SCH ×4 (07:50→21:15)
[2022-04-26] MEDS: TAMSULOSIN HCL 0.4MG SR CAPSULE PO SCH (09:01)
[2022-04-26] MEDS: AMLODIPINE 10MG TABLET PO SCH (09:01)
[2022-04-26] MEDS: LOSARTAN POTASSIUM 50 MG TABLET PO SCH ×2 (09:01→15:50)
[2022-04-26] MEDS: METOPROLOL TARTRATE 100MG TABLET PO SCH ×2 (09:01→21:09)
[2022-04-26] MEDS: SODIUM CHLORIDE 0.45% 1,000 ML IV SCH (09:02)
[2022-04-26] MEDS: ASPIRIN 81MG EC TABLET PO SCH (09:02)
[2022-04-26 10:21] LABS: BASOPHILS % 0.5 % (0.0-2.0); EOSINOPHILS % 2.3 % (0.0-5.0); HEMATOCRIT. 35.5 % (36.0-48.0); HEMOGLOBIN. 11.5 g/dL (12.0-16.0); MEAN CORPUSCULAR HEMOGLOBIN 28.9 pg (28.0-32.0); MEAN CORPUSCULAR VOLUME 89.4 fL (81.0-99.0); MEAN PLATELET VOLUME 8.4 fl (7.4-10.4); MONOCYTES % 2.6 % (2.0-8.0); NEUTROPHILS % 72.6 % (40.0-76.0); PLATELET 354 x1000/uL (130-400); RED BLOOD CELL COUNT 3.97 mill/uL (4.2-5.4); RED CELL DISTRIBUTION WIDTH 15.5 % (11.6-14.6)
[2022-04-26] MEDS ORDERED: NALOXONE HCL 0.4MG/ML VIAL IV PRN (14:15)
[2022-04-26] MEDS: ENOXAPARIN 40MG/0.4ML SYR SUBCUT SCH (15:49)
[2022-04-26] MEDS: CEFTRIAXONE 1,000 MG in DEXTROSE 5% WATER 50 ML IV SCH (17:25)
[2022-04-26] MEDS: ATORVASTATIN CALCIUM 20MG TABLET PO SCH (21:00)
[2022-04-27] VITALS: BP 115/70
[2022-04-27 04:00] VITALS: BP 148/89
[2022-04-27] MEDS: SODIUM CHLORIDE 0.45% 1,000 ML IV SCH (04:43)
[2022-04-27] MEDS: SODIUM CHLORIDE 0.9% INJ 3ML FLUSH IVF SCH ×2 (05:52→13:42)
[2022-04-27] MEDS: GABAPENTIN 300MG CAPSULE PO SCH ×2 (05:52→13:44)
[2022-04-27] MEDS: BLOOD SUGAR DIAGNOSTIC STRIP TEST SCH ×3 (06:21→16:27)
[2022-04-27] MEDS: INSULIN LISPRO 100 UNITS/ML SUBCUT SCH ×3 (06:50→17:07)
[2022-04-27 08:10] LABS: BASOPHILS % 0.8 % (0.0-2.0); EOSINOPHILS % 4.7 % (0.0-5.0); HEMATOCRIT. 34.2 % (36.0-48.0); HEMOGLOBIN. 10.9 g/dL (12.0-16.0); MEAN CORPUSCULAR HEMOGLOBIN 28.7 pg (28.0-32.0); MEAN CORPUSCULAR VOLUME 90.2 fL (81.0-99.0); MEAN PLATELET VOLUME 8.4 fl (7.4-10.4); NEUTROPHILS % 56.5 % (40.0-76.0); PLATELET 334 x1000/uL (130-400); RED BLOOD CELL COUNT 3.79 mill/uL (4.2-5.4); RED CELL DISTRIBUTION WIDTH 15.9 % (11.6-14.6)
[2022-04-27 08:15] VITALS: BP 171/83
[2022-04-27] MEDS: ASPIRIN 81MG EC TABLET PO SCH (08:34)
[2022-04-27] MEDS: METOPROLOL TARTRATE 100MG TABLET PO SCH (08:34)
[2022-04-27] MEDS: AMLODIPINE 10MG TABLET PO SCH (08:34)
[2022-04-27] MEDS: TAMSULOSIN HCL 0.4MG SR CAPSULE PO SCH (08:34)
[2022-04-27] MEDS: LOSARTAN POTASSIUM 50 MG TABLET PO SCH ×2 (08:34→16:26)
[2022-04-27 12:00] VITALS: BP 126/54
[2022-04-27] MEDS ORDERED: HYDRALAZINE HCL 50MG TABLET PO SCH (14:00)
[2022-04-27 15:57] VITALS: BP 126/54
[2022-04-27] MEDS: ENOXAPARIN 40MG/0.4ML SYR SUBCUT SCH (16:27)
[2022-04-27] MEDS: CEFTRIAXONE 1,000 MG in DEXTROSE 5% WATER 50 ML IV SCH (17:07)
== END 2022-04-27 16:40 | disposition home or self-care (01) | DRG 463 ==
LOC: ER 12:51 → EDBEDREQSVC 14:00 → EDBEDREQTM 14:00 → EDBEDREQ 14:00 → 6WST 14:40 → EDBEDREQ 14:54 → EDBEDREQTM 14:54 → ENRESERV 23:37
PROVIDERS: ADMIT Internal Medicine; ATTEND Internal Medicine
DX: N39.0 Urinary tract infection, site not specified (principal); I13.0 Hypertensive heart and chronic kidney disease with heart failure and stage 1 through stage 4 chronic kidney disease, or unspecified chronic kidney disease; I95.9 Hypotension, unspecified; E11.22 Type 2 diabetes mellitus with diabetic chronic kidney disease; I50.9 Heart failure, unspecified; I16.0 Hypertensive urgency; N18.9 Chronic kidney disease, unspecified; E78.5 Hyperlipidemia, unspecified; J44.9 Chronic obstructive pulmonary disease, unspecified; M48.00 Spinal stenosis, site unspecified; Z88.8 Allergy status to other drugs, medicaments and biological substances; Z79.899 Other long term (current) drug therapy; Z82.49 Family history of ischemic heart disease and other diseases of the circulatory system; Z90.49 Acquired absence of other specified parts of digestive tract
CPT/HCPCS: 36415; 71045; 80048; 80053; 81003; 82962; 83605; 83735; 84145; 85025; 93005; 99291; J0360; J0696; J1650; J1815; J2405; J2543; J3370; J7030; J7060

== ENCOUNTER 2022-05-26 12:35 | Inpatient (IN) | payer MEDICAID ==
[~2022-05-26] VITALS: Ht 160 cm; Wt 61.2 kg
[2022-05-26] MEDS ORDERED: SODIUM CHLORIDE 0.9% 1,000 ML IV ONE ×2 (13:00→16:30)
[2022-05-26 13:34] LABS: EOSINOPHILS % 5.5 % (0.0-5.0); HEMATOCRIT. 36.6 % (36.0-48.0); HEMOGLOBIN. 11.7 g/dL (12.0-16.0); LYMPHOCYTES % 39.7 % (20.0-50.0); MEAN CORPUSCULAR HEMOGLOBIN 28.9 pg (28.0-32.0); MEAN CORPUSCULAR VOLUME 90.1 fL (81.0-99.0); MEAN PLATELET VOLUME 8.4 fl (7.4-10.4); MONOCYTES % 7.8 % (2.0-8.0); PLATELET 297 x1000/uL (130-400); RED BLOOD CELL COUNT 4.06 mill/uL (4.2-5.4); RED CELL DISTRIBUTION WIDTH 15.4 % (11.6-14.6)
[2022-05-26 13:42] LABS: CHLORIDE 109 mEq/L (98-107)
[2022-05-26 13:53] LABS: ETHANOL BLOOD < 10 mg/dL
[2022-05-26 13:58] LABS: CLARITY URINE CLEAR (CLEAR); COLOR URINE YELLOW (YELLOW); KETONES URINE NEGATIVE (NEGATIVE); LEUKOCYTE ESTERASE URINE NEGATIVE (NEGATIVE); NITRITE URINE NEGATIVE (NEGATIVE); OCCULT BLOOD URINE NEGATIVE (NEGATIVE); PH URINE 5.5 (4.5-8.0); PROTEIN URINE NEGATIVE (NEGATIVE); SPECIFIC GRAVITY URINE 1.026 (1.005-1.030); UROBILINOGEN URINE 0.2 E.U./dL (0.2-1.0)
[2022-05-26 14:11] LABS: *AMPHETAMINES SCREEN URINE NEGATIVE (NEGATIVE); *BARBITURATES SCREEN URINE NEGATIVE (NEGATIVE); *BENZODIAZEPINES SCREEN URINE NEGATIVE (NEGATIVE); *COCAINE SCREEN URINE NEGATIVE (NEGATIVE); CANNABINOID URINE SCREEN NEGATIVE (NEGATIVE); METHADONE URINE SCREEN NEGATIVE (NEGATIVE); OPIATES URINE SCREEN PRESUMTIVE POSITIVE (NEGATIVE); PHENCYCLIDINE URINE SCREEN NEGATIVE (NEGATIVE)
[2022-05-26 21:30] VITALS: BP 140/74
[2022-05-26 22:00] VITALS: BP 140/74
[2022-05-27] VITALS: BP 114/63
[2022-05-27] MEDS ORDERED: DEXTROSE 50% WATER 50ML SYRINGE IV PRN (00:15)
[2022-05-27 04:00] VITALS: BP 125/74
[2022-05-27] MEDS: BLOOD SUGAR DIAGNOSTIC STRIP TEST SCH ×4 (06:20→21:48)
[2022-05-27 06:50] LABS: HEMATOCRIT 35.2 % (36.0-48.0); HEMOGLOBIN 11.4 g/dL (12.0-16.0); MEAN CORPUSCULAR HEMOGLOBIN 29.2 pg (28.0-32.0); MEAN CORPUSCULAR VOLUME 90.2 fL (81.0-99.0); PLATELET 268 x1000/uL (130-400); RED BLOOD CELL COUNT 3.91 mill/uL (4.2-5.4); RED CELL DISTRIBUTION WIDTH 15.7 % (11.6-14.6)
[2022-05-27 06:51] LABS: CHLORIDE 113 mEq/L (98-107)
[2022-05-27 07:04] LABS: HDL CHOLESTEROL 65 mg/dL (40-59); LDL CHOLESTEROL 171 mg/dL (5-100)
[2022-05-27] MEDS: INSULIN LISPRO 100 UNITS/ML SUBCUT SCH ×4 (07:50→21:48)
[2022-05-27 08:00] VITALS: BP 153/80
[2022-05-27] MEDS: GABAPENTIN 300MG CAPSULE PO SCH ×3 (08:56→18:00)
[2022-05-27] MEDS: TAMSULOSIN HCL 0.4MG SR CAPSULE PO SCH (08:56)
[2022-05-27] MEDS: AMLODIPINE 10MG TABLET PO SCH (08:57)
[2022-05-27] MEDS: DOCUSATE SODIUM 100MG CAPSULE PO SCH (08:57)
[2022-05-27] MEDS: ASPIRIN 81MG EC TABLET PO SCH (08:57)
[2022-05-27 12:00] VITALS: BP 177/88
[2022-05-27] MEDS ORDERED: MONT-39 PO (14:39)
[2022-05-27] MEDS ORDERED: LABE200T9 PO (14:40)
[2022-05-27] MEDS ORDERED: LOSA100T32 PO (14:40)
[2022-05-27] MEDS ORDERED: DOCU-150 PO (14:41)
[2022-05-27] MEDS ORDERED: METO-385 PO (14:43)
[2022-05-27] MEDS: CLONIDINE 0.1MG TABLET PO PRN (15:01)
[2022-05-27 16:00] VITALS: BP 131/70
[2022-05-27 20:00] VITALS: BP 126/77
[2022-05-27] MEDS: ATORVASTATIN CALCIUM 40MG TABLET PO SCH (21:45)
[2022-05-27] MEDS: SODIUM CHLORIDE 0.9% 1,000 ML IV SCH (23:56)
[2022-05-28] VITALS (7 sets, daily range): BP systolic 102–180; BP diastolic 53–86
[2022-05-28] MEDS: BLOOD SUGAR DIAGNOSTIC STRIP TEST SCH ×4 (06:39→21:14)
[2022-05-28] MEDS: INSULIN LISPRO 100 UNITS/ML SUBCUT SCH ×4 (08:13→21:00)
[2022-05-28] MEDS: GABAPENTIN 300MG CAPSULE PO SCH ×3 (09:02→17:08)
[2022-05-28] MEDS: ASPIRIN 81MG EC TABLET PO SCH (09:03)
[2022-05-28] MEDS: DOCUSATE SODIUM 100MG CAPSULE PO SCH (09:03)
[2022-05-28] MEDS: AMLODIPINE 10MG TABLET PO SCH (09:03)
[2022-05-28] MEDS: TAMSULOSIN HCL 0.4MG SR CAPSULE PO SCH (09:03)
[2022-05-28] MEDS: SODIUM CHLORIDE 0.9% 1,000 ML IV SCH (10:34)
[2022-05-28] MEDS: CLONIDINE 0.1MG TABLET PO PRN (13:08)
[2022-05-28] MEDS ORDERED: INSULIN LISPRO 100 UNITS/ML SUBCUT NR (13:15)
[2022-05-28] MEDS ORDERED: INSULIN GLARGINE 100 UNITS/ML SUBCUT NR (13:45)
[2022-05-28] MEDS ORDERED: HYDRALAZINE HCL 50MG TABLET PO NR (16:39)
[2022-05-28] MEDS ORDERED: INSULIN LISPRO 100 UNITS/ML SUBCUT SCH (17:20)
[2022-05-28] MEDS: ATORVASTATIN CALCIUM 40MG TABLET PO SCH (21:00)
[2022-05-28] MEDS ORDERED: HYDRALAZINE HCL 50MG TABLET PO SCH (21:00)
== END 2022-05-28 21:30 | disposition home health service (06) | DRG 422 ==
LOC: ER 12:35 → 6WST 16:15 → EDBEDREQ 16:17 → EDBEDREQTM 16:17 → EDBEDREQSVC 16:17 → ENRESERV 20:16
PROVIDERS: ADMIT Internal Medicine; ATTEND Internal Medicine
DX: E86.0 Dehydration (principal); N17.0 Acute kidney failure with tubular necrosis; E87.8 Other disorders of electrolyte and fluid balance, not elsewhere classified; I95.9 Hypotension, unspecified; E11.65 Type 2 diabetes mellitus with hyperglycemia; I10 Essential (primary) hypertension; E78.5 Hyperlipidemia, unspecified; J44.9 Chronic obstructive pulmonary disease, unspecified; R33.9 Retention of urine, unspecified; Z88.8 Allergy status to other drugs, medicaments and biological substances; Z79.899 Other long term (current) drug therapy
CPT/HCPCS: 36415; 71045; 76770; 80053; 80061; 80305; 80320; 81003; 82962; 83036; 83605; 84484; 85025; 85027; 93005; 99285; J1815; J7030; G0480

== ENCOUNTER 2023-05-26 23:47 | Emergency (ER) | payer OTHER ==
[~2023-05-26] VITALS: Ht 162.6 cm; Wt 68.0 kg
[~2023-05-26 23:47] MED LIST changes: +CIPR-263 MT; +LOSA100T33 PO; -LOSA50TA41 PO; +METO-385 PO; -METO-539 PO; +MONT-39 PO
[2023-05-26 23:49] VITALS: O2SAT 100
[2023-05-26] MEDS ORDERED: ONDANSETRON HCL 4MG/2ML INJ IV STA (23:53)
[2023-05-27 00:28] LABS: BASOPHILS % 0.6 % (0.0-2.0); EOSINOPHILS % 2.1 % (0.0-5.0); HEMATOCRIT. 41.9 % (36.0-48.0); HEMOGLOBIN. 13.9 g/dL (12.0-16.0); LYMPHOCYTES % 27.1 % (20.0-50.0); MEAN CORPUSCULAR HEMOGLOBIN 29.5 pg (28.0-32.0); MEAN CORPUSCULAR HGB CONC 33.1 g/dL (31.0-37.0); MEAN CORPUSCULAR VOLUME 89.3 fL (81.0-99.0); MEAN PLATELET VOLUME 9.4 fl (7.4-10.4); MONOCYTES % 6.8 % (2.0-8.0); NEUTROPHILS % 63.4 % (40.0-76.0); PLATELET 368 x1000/uL (130-400); RED BLOOD CELL COUNT 4.69 mill/uL (4.2-5.4); RED CELL DISTRIBUTION WIDTH 14.3 % (11.6-14.6); WHITE BLOOD COUNT 7.8 x1000/uL (4.5-11.0)
[2023-05-27 00:47] LABS: CHLORIDE 100 mEq/L (98-107); INDEX HEMOLYSI 1 (1-3); INDEX ICTERIC 1 (1-4); INDEX LIPEMIC 1 (1-3); SODIUM 138 mEq/L (136-145)
[2023-05-27 00:53] LABS: AMMONIA 13 uMol/L (<32)
[2023-05-27 00:57] LABS: ACETAMINOPHEN <2 ug/mL ug/mL (10-30); ALANINE AMINOTRANSFERASE 21 IU/L (13-61); ALBUMIN 3.8 g/dL (3.4-5.0); ASPARTATE AMINOTRANSFERASE 14 IU/L (15-37); BILIRUBIN TOTAL 0.3 mg/dL (0.1-1.0); CALCIUM 9.6 mg/dL (8.5-10.1); CARBON DIOXIDE 30 mEq/L (21-32); CREATINE KINASE 83 IU/L (26-192); CREATININE 2.6 mg/dL (0.6-1.3); ETHANOL BLOOD < 10 mg/dL (-10); GLUCOSE 373 mg/dL (70-105); PROTEIN TOTAL 8.4 g/dL (6.0-8.3); UREA NITROGEN BLOOD 38 mg/dL (7-21)
[2023-05-27 01:01] LABS: CLARITY URINE CLOUDY (CLEAR); COLOR URINE DARK YELLOW (YELLOW); GLUCOSE URINE 3+ (NEGATIVE); KETONES URINE 1+ (NEGATIVE); LEUKOCYTE ESTERASE URINE NEGATIVE (NEGATIVE); NITRITE URINE NEGATIVE (NEGATIVE); OCCULT BLOOD URINE NEGATIVE (NEGATIVE); PROTEIN URINE 1+ (NEGATIVE); SPECIFIC GRAVITY URINE 1.026 (1.005-1.030); UROBILINOGEN URINE 0.2 E.U./dL (0.2-1.0)
[2023-05-27 01:04] LABS: BACTERIA URINE NONE SEEN; SQUAMOUS EPITHELIAL CELL URINE NONE SEEN /lpf (RARE/1+); YEAST URINE NONE SEEN
[2023-05-27 01:13] LABS: LACTIC ACID 4.6 mmol/L (0.4-2.0)
[2023-05-27 01:18] LABS: *AMPHETAMINES SCREEN URINE NEGATIVE (NEGATIVE); *BARBITURATES SCREEN URINE NEGATIVE (NEGATIVE); *BENZODIAZEPINES SCREEN URINE NEGATIVE (NEGATIVE); *COCAINE SCREEN URINE NEGATIVE (NEGATIVE); CANNABINOID URINE SCREEN NEGATIVE (NEGATIVE); ECSTASY MDMA SCREEN URINE CONF.TEST INDICATED (NEGATIVE); METHADONE URINE SCREEN NEGATIVE (NEGATIVE); OPIATES URINE SCREEN NEGATIVE (NEGATIVE); PHENCYCLIDINE URINE SCREEN NEGATIVE (NEGATIVE)
[2023-05-27] MEDS ORDERED: SODIUM CHLORIDE 0.9% 1,000 ML IV ONE ×2 (01:30)
[2023-05-27] MEDS ORDERED: SODIUM BICARBONATE 8.4% 1 MEQ/ML 50ML SYR IV NR (02:30)
[2023-05-27 02:53] LABS: WBC URINE 0-2 /hpf (0-2)
[2023-05-27 02:56] LABS: AMORPHOUS SEDIMENT URINE 1+ /lpf; RBC URINE 0-2 /hpf (0-2)
[2023-05-27 05:18] VITALS: BP 135/86; PULSE 85; RESP 17; TEMP 98.7
== END 2023-05-27 05:24 | disposition left against medical advice (07) ==
LOC: ER 23:56
DX: K31.84 Gastroparesis (principal); E87.20 Acidosis, unspecified; E11.9 Type 2 diabetes mellitus without complications; I10 Essential (primary) hypertension; Z79.899 Other long term (current) drug therapy
CPT/HCPCS: 80053; 80307; 80329; 80320; 82140; 82550; 83605 ×2; 83690; 85025; 36415; 99285; 80305; 81003; 96374; 96375; J2405; J3490; J7030; Z7610 ×3; G0480

== ENCOUNTER 2023-07-11 01:13 | Emergency (ER) | payer OTHER ==
[~2023-07-11] VITALS: Ht 170.2 cm; Wt 60.0 kg
[2023-07-11 01:28] VITALS: TEMP 98.4; O2SAT 100
[2023-07-11] MEDS ORDERED: ONDANSETRON HCL 4MG/2ML INJ IV STA (01:35)
[2023-07-11 01:50] VITALS: BP 145/66; PULSE 84; RESP 18
[2023-07-11 03:25] LABS: BASOPHILS % 0.8 % (0.0-2.0); EOSINOPHILS % 3.5 % (0.0-5.0); HEMATOCRIT. 39.1 % (36.0-48.0); HEMOGLOBIN. 13.1 g/dL (12.0-16.0); LYMPHOCYTES % 27.8 % (20.0-50.0); MEAN CORPUSCULAR HEMOGLOBIN 29.7 pg (28.0-32.0); MEAN CORPUSCULAR HGB CONC 33.5 g/dL (31.0-37.0); MEAN CORPUSCULAR VOLUME 88.8 fL (81.0-99.0); MEAN PLATELET VOLUME 9.2 fl (7.4-10.4); MONOCYTES % 8.6 % (2.0-8.0); NEUTROPHILS % 59.3 % (40.0-76.0); PLATELET 324 x1000/uL (130-400); RED BLOOD CELL COUNT 4.41 mill/uL (4.2-5.4); RED CELL DISTRIBUTION WIDTH 14.4 % (11.6-14.6); WHITE BLOOD COUNT 8.6 x1000/uL (4.5-11.0)
[2023-07-11 04:23] LABS: ALANINE AMINOTRANSFERASE 19 IU/L (13-61); ALBUMIN 3.9 g/dL (3.4-5.0); ASPARTATE AMINOTRANSFERASE 12 IU/L (15-37); BETA HYDROXYBUTYRATE 0.1 mMol/L (0.0-0.3); BILIRUBIN TOTAL 0.3 mg/dL (0.1-1.0); CALCIUM 9.2 mg/dL (8.5-10.1); CARBON DIOXIDE 29 mEq/L (21-32); CHLORIDE 100 mEq/L (98-107); CREATININE 2.5 mg/dL (0.6-1.3); GLUCOSE 182 mg/dL (70-105); INDEX HEMOLYSI 1 (1-3); INDEX ICTERIC 1 (1-4); INDEX LIPEMIC 1 (1-3); PHOSPHORUS 4.1 mg/dL (2.5-4.9); POTASSIUM 3.8 mEq/L (3.5-5.1); PROTEIN TOTAL 8.4 g/dL (6.0-8.3); SODIUM 138 mEq/L (136-145); UREA NITROGEN BLOOD 41 mg/dL (7-21)
[2023-07-11] MEDS ORDERED: SODIUM CHLORIDE 0.9% 1,000 ML IV ONE (05:00)
[2023-07-11 05:05] LABS: LACTIC ACID 2.8 mmol/L (0.4-2.0)
[2023-07-11 05:06] LABS: TROPONIN I HIGH SENSITIVITY 59 ng/L (<54)
[2023-07-11 05:20] LABS: ETHANOL BLOOD < 10 mg/dL (<10)
[2023-07-11] MEDS ORDERED: GABAPENTIN 300MG CAPSULE PO ONE (05:30)
[2023-07-11 06:16] LABS: TROPONIN I HIGH SENSITIVITY 51 ng/L (<54)
[2023-07-11] MEDS ORDERED: ONDANSETRON HCL 4MG/2ML INJ IV NR (07:30)
== END 2023-07-11 06:52 | disposition home or self-care (01) ==
LOC: ER 01:13
DX: R11.2 Nausea with vomiting, unspecified (principal)
CPT/HCPCS: 36415; 71045; 80053; 80320; 82010; 82962; 83605; 83735; 84100; 84145; 84484; 85025; 93005; 96360; 99285; J7030; G0480

== ENCOUNTER 2023-11-23 11:56 | Emergency (ER) | payer MEDICAID, OTHER ==
[~2023-11-23] VITALS: Ht 167.6 cm; Wt 60.0 kg
[~2023-11-23 11:56] MED LIST changes: -CIPR-263 MT; -INSU100I24 SQ; +LANTUSUD SUBCUT; +METO5TAB86 MT
[2023-11-23 12:00] VITALS: O2SAT 100
[2023-11-23 13:05] LABS: BASOPHILS % 0.8 % (0.0-2.0); EOSINOPHILS % 0.7 % (0.0-5.0); HEMATOCRIT. 35.2 % (36.0-48.0); HEMOGLOBIN. 11.7 g/dL (12.0-16.0); LYMPHOCYTES % 19.4 % (20.0-50.0); MEAN CORPUSCULAR HEMOGLOBIN 30.7 pg (28.0-32.0); MEAN CORPUSCULAR HGB CONC 33.1 g/dL (31.0-37.0); MEAN CORPUSCULAR VOLUME 92.8 fL (81.0-99.0); MONOCYTES % 4.7 % (2.0-8.0); NEUTROPHILS % 74.4 % (40.0-76.0); PLATELET 301 x1000/uL (130-400); RED BLOOD CELL COUNT 3.79 mill/uL (4.2-5.4); RED CELL DISTRIBUTION WIDTH 13.6 % (11.6-14.6); WHITE BLOOD COUNT 5.6 x1000/uL (4.5-11.0)
[2023-11-23 13:16] LABS: INR 0.9; PROTHROMBIN TIME 9.8 sec (9.6-11.0)
[2023-11-23 13:19] LABS: ALANINE AMINOTRANSFERASE 14 IU/L (10-49); ALBUMIN 4.3 g/dL (3.2-4.8); ASPARTATE AMINOTRANSFERASE 16 IU/L (<34); BILIRUBIN TOTAL 0.4 mg/dL (0.1-1.0); CALCIUM 9.2 mg/dL (8.7-10.4); CARBON DIOXIDE 21 mEq/L (21-32); CHLORIDE 103 mEq/L (98-107); PHOSPHORUS 3.1 mg/dL (2.5-4.9); POTASSIUM 4.4 mEq/L (3.5-5.1); PROTEIN TOTAL 7.8 g/dL (6.0-8.3); SODIUM 135 mEq/L (136-145); UREA NITROGEN BLOOD 34 mg/dL (9-23)
[2023-11-23] MEDS: SODIUM CHLORIDE 0.9% 1,000 ML IV ONE ×2 (13:23→14:09)
[2023-11-23 13:24] LABS: TROPONIN I HIGH SENSITIVITY 44 ng/L (3.0-34)
[2023-11-23 13:25] LABS: GLUCOSE 544 mg/dL (70-105)
[2023-11-23 13:44] VITALS: TEMP 97.8
[2023-11-23] MEDS: INSULIN REGULAR (HUMULIN R) 300UNITS/3ML VIAL IV NR (14:05)
[2023-11-23 15:32] LABS: TROPONIN I HIGH SENSITIVITY 43 ng/L (3.0-34)
[2023-11-23 15:49] VITALS: BP 136/71; PULSE 82; RESP 15
[2023-12-21] MEDS ORDERED: MULT-1318 PO (17:39)
[2023-12-21] MEDS ORDERED: DAPA10TA PO (17:39)
[2023-12-21] MEDS ORDERED: FURO20TA4 PO (17:39)
[2023-12-21] MEDS ORDERED: INSU100I26 SUBCUT (17:39)
[2023-12-21] MEDS ORDERED: FINE10TA PO (17:39)
[2023-12-21] MEDS ORDERED: GABA-532 PO (17:39)
[2023-12-21] MEDS ORDERED: BETH5TAB10 PO (17:39)
[2023-12-22] MEDS ORDERED: INSU100V43 SQ (14:10)
[2023-12-22] MEDS ORDERED: INSU100I28 SQ (14:10)
== END 2023-11-23 15:55 | disposition left against medical advice (07) ==
LOC: ER 11:59
DX: E11.65 Type 2 diabetes mellitus with hyperglycemia (principal); J44.9 Chronic obstructive pulmonary disease, unspecified; E78.00 Pure hypercholesterolemia, unspecified; I10 Essential (primary) hypertension; N17.9 Acute kidney failure, unspecified; R79.89 Other specified abnormal findings of blood chemistry
CPT/HCPCS: 99285; 74176; 96374; 71045; 96361; 80053; 82010; 82962; 83880; 83735; 84100; 85025; 85610; 84484; 93005; 36415; J7030; J1815

== ENCOUNTER 2024-01-19 15:24 | Emergency (ER) | payer OTHER ==
[~2024-01-19] VITALS: Ht 160 cm; Wt 55.0 kg
[~2024-01-19 15:24] MED LIST changes: -AMLO10TA4 PO; -ATOR20TA PO; +BETH5TAB10 PO; +DAPA10TA PO; -DOCU-150 PO; +FINE10TA PO; -FLUT1AER5 INH; +FURO20TA4 PO; +GABA-532 PO; -GABA300C PO; -INSU100I26 SQ; +INSU100I26 SUBCUT; +INSU100I28 SQ; +INSU100V43 SQ; -LOSA100T33 PO; -METO-385 PO; -METO5TAB86 MT; -MONT-39 PO; +MULT-1318 PO; -PHEN20SP MT; -T3 PO
[2024-01-19 15:29] VITALS: O2SAT 99
[2024-01-19 17:40] LABS: BASOPHILS % 0.8 % (0.0-2.0); EOSINOPHILS % 3.9 % (0.0-5.0); HEMATOCRIT. 34.3 % (36.0-48.0); HEMOGLOBIN. 11.3 g/dL (12.0-16.0); LYMPHOCYTES % 32.4 % (20.0-50.0); MEAN CORPUSCULAR HEMOGLOBIN 30.2 pg (28.0-32.0); MEAN CORPUSCULAR HGB CONC 32.9 g/dL (31.0-37.0); MEAN PLATELET VOLUME 8.1 fl (7.4-10.4); NEUTROPHILS % 55.9 % (40.0-76.0); PLATELET 365 x1000/uL (130-400); RED BLOOD CELL COUNT 3.72 mill/uL (4.2-5.4); RED CELL DISTRIBUTION WIDTH 14.6 % (11.6-14.6); WHITE BLOOD COUNT 6.2 x1000/uL (4.5-11.0)
[2024-01-19 17:43] LABS: POTASSIUM 5.1 mEq/L (3.5-5.1)
[2024-01-19 17:49] LABS: CREATININE 1.9 mg/dL (0.6-1.0)
[2024-01-19 18:45] LABS: CLARITY URINE CLEAR (CLEAR); COLOR URINE YELLOW (YELLOW); GLUCOSE URINE 1+ (NEGATIVE); KETONES URINE TRACE (NEGATIVE); LEUKOCYTE ESTERASE URINE NEGATIVE (NEGATIVE); NITRITE URINE NEGATIVE (NEGATIVE); OCCULT BLOOD URINE NEGATIVE (NEGATIVE); PH URINE 5.5 (4.5-8.0); PROTEIN URINE 1+ (NEGATIVE); SPECIFIC GRAVITY URINE 1.015 (1.005-1.030); UROBILINOGEN URINE 0.2 E.U./dL (0.2-1.0)
[2024-01-19 19:31] LABS: BACTERIA URINE 1+; RBC URINE 0-2 /hpf (0-2); WBC URINE 0-2 /hpf (0-2); YEAST URINE 2+
[2024-01-19 19:32] LABS: SQUAMOUS EPITHELIAL CELL URINE FEW /lpf (RARE/1+)
[2024-01-19] MEDS ORDERED: LOSARTAN 100 MG TABLET PO ONE (20:45)
[2024-01-19] MEDS: LABETALOL HCL 200MG TABLET PO SCH (21:28)
[2024-01-19 22:01] VITALS: BP 156/80; PULSE 93; RESP 20; TEMP 98.9
== END 2024-01-19 22:02 | disposition home or self-care (01) ==
LOC: ER 15:24
DX: R33.9 Retention of urine, unspecified (principal); J44.9 Chronic obstructive pulmonary disease, unspecified; E11.9 Type 2 diabetes mellitus without complications; E78.00 Pure hypercholesterolemia, unspecified; I10 Essential (primary) hypertension; Z98.890 Other specified postprocedural states; Z90.49 Acquired absence of other specified parts of digestive tract
CPT/HCPCS: 80048; 81003; 83690; 85025; 36415; 99285; Z7610

== ENCOUNTER 2024-05-30 15:08 | Inpatient (IN) | payer OTHER ==
[~2024-05-30] VITALS: Ht 162.6 cm; Wt 56.4 kg
[2024-05-30] VITALS (15 sets, daily range): BP systolic 135–175; BP diastolic 57–111; PULSE 95–114; RESP 12–21; TEMP 36.9474–36.974; O2SAT 95–100
[~2024-05-30 15:08] MED LIST changes: +AMLO5TAB88 MT; +DOCU-155 MT; -INSU100I28 SQ; +LABE200T9 PO; +LEVO250T74 MT; +LIP40 PO; +LOSA100T33 MT; +METO2.5T2 PO
[2024-05-30] MEDS: LACTATED RINGERS 1,000 ML IV SCH (15:54)
[2024-05-30] MEDS: ONDANSETRON HCL 4MG/2ML INJ IV STA (15:54)
[2024-05-30 16:17] LABS: BASOPHILS % 0.8 % (0.0-2.0); EOSINOPHILS % 0.1 % (0.0-5.0); HEMATOCRIT. 37.2 % (36.0-48.0); HEMOGLOBIN. 11.5 g/dL (12.0-16.0); LYMPHOCYTES % 16.3 % (20.0-50.0); MEAN CORPUSCULAR HEMOGLOBIN 30.6 pg (28.0-32.0); MEAN CORPUSCULAR HGB CONC 30.9 g/dL (31.0-37.0); MEAN CORPUSCULAR VOLUME 99.2 fL (81.0-99.0); MONOCYTES % 1.4 % (2.0-8.0); NEUTROPHILS % 81.4 % (40.0-76.0); PLATELET 427 x1000/uL (130-400); RED BLOOD CELL COUNT 3.75 mill/uL (4.2-5.4); RED CELL DISTRIBUTION WIDTH 15.3 % (11.6-14.6); WHITE BLOOD COUNT 6.9 x1000/uL (4.5-11.0)
[2024-05-30 16:20] LABS: CHLORIDE 93 mEq/L (98-107); SODIUM 128 mEq/L (136-145)
[2024-05-30 16:26] LABS: UREA NITROGEN BLOOD 51 mg/dL (9-23)
[2024-05-30 16:28] LABS: ALANINE AMINOTRANSFERASE 14 IU/L (10-49); ASPARTATE AMINOTRANSFERASE 13 IU/L (<34); BILIRUBIN TOTAL 0.3 mg/dL (0.1-1.0); PROTEIN TOTAL 7.3 g/dL (6.0-8.3)
[2024-05-30 16:49] LABS: BILIRUBIN DIRECT < 0.1 mg/dL (<=3.0); CREATININE 2.5 mg/dL (0.6-1.0)
[2024-05-30 16:51] LABS: CARBON DIOXIDE < 10 mEq/L (21-32); GLUCOSE 856 mg/dL (70-105); POTASSIUM 6.6 mEq/L (3.5-5.1)
[2024-05-30] MEDS ORDERED: INSULIN REGULAR (DRIP) 100 UNITS in SODIUM CHLORIDE 0.9% 99 ML IV STA (16:59)
[2024-05-30] MEDS ORDERED: BLOOD SUGAR DIAGNOSTIC STRIP TEST PRN ×2 (17:00→22:45)
[2024-05-30] MEDS: INSULIN REGULAR (HUMULIN R) 1000UNITS/10ML VIAL IV ONE (17:00)
[2024-05-30] MEDS: SODIUM CHLORIDE 0.9% 1,000 ML IV SCH ×2 (17:00→23:27)
[2024-05-30] MEDS ORDERED: DEXTROSE 50% WATER 50ML SYRINGE IV PRN ×2 (17:00→22:45)
[2024-05-30] MEDS ORDERED: LACTATED RINGERS 1,000 ML IV SCH (17:15)
[2024-05-30] MEDS ORDERED: INSULIN REGULAR (DRIP) 100 UNITS in SODIUM CHLORIDE 0.9% 99 ML IV SCH ×2 (17:15→17:30)
[2024-05-30] MEDS: BLOOD SUGAR DIAGNOSTIC STRIP TEST SCH ×2 (18:15→22:00)
[2024-05-30] MEDS: INSULIN REGULAR 100U/100ML PMX 100 ML IV SCH (18:27)
[2024-05-30 18:59] LABS: CLARITY URINE CLEAR (CLEAR); COLOR URINE YELLOW (YELLOW); GLUCOSE URINE 3+ (NEGATIVE); KETONES URINE 2+ (NEGATIVE); LEUKOCYTE ESTERASE URINE NEGATIVE (NEGATIVE); NITRITE URINE POSITIVE (NEGATIVE); OCCULT BLOOD URINE NEGATIVE (NEGATIVE); PROTEIN URINE NEGATIVE (NEGATIVE); SPECIFIC GRAVITY URINE 1.025 (1.005-1.030); UROBILINOGEN URINE 0.2 E.U./dL (0.2-1.0)
[2024-05-30 19:32] LABS: BACTERIA URINE 1+; RBC URINE NONE SEEN /hpf (0-2); SQUAMOUS EPITHELIAL CELL URINE FEW /lpf (RARE/1+)
[2024-05-30 22:28] LABS: POTASSIUM 4.7 mEq/L (3.5-5.1)
[2024-05-30 22:30] LABS: CALCIUM 9.3 mg/dL (8.7-10.4)
[2024-05-30 22:34] LABS: CREATININE 2.5 mg/dL (0.6-1.0)
[2024-05-30] MEDS ORDERED: ONDANSETRON HCL 4MG/2ML INJ IV PRN (22:45)
[2024-05-30] MEDS ORDERED: POTASSIUM CHLORIDE 40 MEQ in SODIUM CHLORIDE 0.9% 230 ML IV PRN (22:45)
[2024-05-30] MEDS ORDERED: KCL 20MEQ/100ML PREMIX 100 ML IV PRN (22:45)
[2024-05-30] MEDS ORDERED: MAGNESIUM 2 G PREMIX 50 ML IV PRN (23:00)
[2024-05-30] MEDS: ACETAMINOPHEN 325MG TABLET PO PRN (23:26)
[2024-05-30] MEDS: HYDRALAZINE 20MG/ML VIAL IV PRN (23:47)
[2024-05-31] VITALS (44 sets, daily range): BP systolic 125–170; BP diastolic 68–94; PULSE 83–110; RESP 5–22; TEMP 36.72516–37.16964; O2SAT 93–100
[2024-05-31 00:47] LABS: CHLORIDE 110 mEq/L (98-107); POTASSIUM 4.1 mEq/L (3.5-5.1); SODIUM 142 mEq/L (136-145)
[2024-05-31] MEDS: PANTOPRAZOLE SODIUM 40 MG/VIAL IV SCH (00:47)
[2024-05-31 00:48] LABS: CARBON DIOXIDE 21 mEq/L (21-32)
[2024-05-31] MEDS: DEXT 5%/0.9% NACL 1,000 ML IV SCH (00:48)
[2024-05-31 00:49] LABS: CALCIUM 9.3 mg/dL (8.7-10.4)
[2024-05-31 00:53] LABS: CREATININE 2.4 mg/dL (0.6-1.0); GLUCOSE 230 mg/dL (70-105)
[2024-05-31 00:54] LABS: UREA NITROGEN BLOOD 42 mg/dL (9-23)
[2024-05-31 00:56] LABS: PHOSPHORUS 1.9 mg/dL (2.5-4.9)
[2024-05-31] MEDS: INSULIN REGULAR 100U/100ML PMX 100 ML IV PRN (02:26)
[2024-05-31] MEDS: SODIUM PHOSPHATE 15 MMOL in SODIUM CHLORIDE 0.9% 245 ML IV PRN (02:57)
[2024-05-31 04:41] LABS: BG BASE EXCESS -0.8 mmol/L (-2.0-3.0); BG CARBOXYHEMOGLOBIN 0.3 % (0.5-1.5); BG DEOXYHEMOGLOBIN 4.9 % (0.0-5.0); BG FRACTION INSPIRED OXYGEN 21; BG HCO3 ACT 23.2 mmol/L (21.0-28.0); BG METHEMOGLOBIN 0.3 % (0.5-1.5); BG OXYGEN SATURATION 95.1 % (94.0-98.0); BG OXYHEMOGLOBIN 94.5 % (94.0-98.0); BG PCO2 36.3 mmHg (32.0-45.0); BG PH 7.423 (7.350-7.450); BG PO2 69.9 mmHg (83.0-108.0); BG SAMPLE SITE LEFT RADIAL; BG TOTAL HEMOGLOBIN 12.8 g/dL (12.0-16.0); BG VENT MODE ROOM AIR
[2024-05-31 05:44] LABS: CHLORIDE 115 mEq/L (98-107); SODIUM 145 mEq/L (136-145)
[2024-05-31 05:45] LABS: CALCIUM 8.9 mg/dL (8.7-10.4); CARBON DIOXIDE 24 mEq/L (21-32)
[2024-05-31 05:50] LABS: CREATININE 2.3 mg/dL (0.6-1.0); GLUCOSE 145 mg/dL (70-105); UREA NITROGEN BLOOD 47 mg/dL (9-23)
[2024-05-31 05:52] LABS: PHOSPHORUS 1.9 mg/dL (2.5-4.9)
[2024-05-31 08:53] LABS: CARBON DIOXIDE 24 mEq/L (21-32); CHLORIDE 115 mEq/L (98-107); POTASSIUM 4.1 mEq/L (3.5-5.1); SODIUM 145 mEq/L (136-145)
[2024-05-31 08:54] LABS: CALCIUM 8.7 mg/dL (8.7-10.4)
[2024-05-31 08:59] LABS: GLUCOSE 203 mg/dL (70-105); UREA NITROGEN BLOOD 43 mg/dL (9-23)
[2024-05-31 09:01] LABS: PHOSPHORUS 2.5 mg/dL (2.5-4.9)
[2024-05-31] MEDS: METOCLOPRAMIDE HCL 10MG/2ML VIAL IV SCH (09:15)
[2024-05-31] MEDS ORDERED: LIDOCAINE HCL 1% 10 MG/ML 10ML VIAL ONE (09:56)
[2024-05-31] MEDS: BLOOD SUGAR DIAGNOSTIC STRIP TEST SCH (11:30)
[2024-05-31 13:14] LABS: POTASSIUM 4.4 mEq/L (3.5-5.1)
[2024-05-31 13:16] LABS: CALCIUM 8.2 mg/dL (8.7-10.4)
[2024-05-31 13:20] LABS: CREATININE 1.9 mg/dL (0.6-1.0)
[2024-05-31] MEDS: INSULIN LISPRO 100 UNITS/ML SUBCUT SCH (14:36)
[2024-05-31 16:48] LABS: POTASSIUM 4.2 mEq/L (3.5-5.1)
[2024-05-31 16:50] LABS: CALCIUM 8.2 mg/dL (8.7-10.4)
[2024-05-31 16:54] LABS: CREATININE 1.9 mg/dL (0.6-1.0)
[2024-05-31] MEDS: INSULIN GLARGINE 100 UNITS/ML SUBCUT SCH (21:46)
[2024-05-31] MEDS ORDERED: INSULIN GLARGINE 100 UNITS/ML SUBCUT SCH (22:00)
[2024-05-31] MEDS: SODIUM BICARBONATE 650MG TABLET PO NR (22:20)
[2024-06-01] VITALS: BP 182/99; PULSE 87; RESP 19; TEMP 36.44736; O2SAT 97
[2024-06-01 04:00] VITALS: BP 130/61; PULSE 103; RESP 20; TEMP 36.3918; O2SAT 98
[2024-06-01 07:20] LABS: CALCIUM 8.8 mg/dL (8.7-10.4); POTASSIUM 3.8 mEq/L (3.5-5.1)
[2024-06-01 07:26] LABS: CREATININE 1.4 mg/dL (0.6-1.0)
[2024-06-01 07:50] LABS: BASOPHILS % 0.6 % (0.0-2.0); EOSINOPHILS % 1.9 % (0.0-5.0); HEMATOCRIT. 30.6 % (36.0-48.0); HEMOGLOBIN. 10.3 g/dL (12.0-16.0); LYMPHOCYTES % 31.3 % (20.0-50.0); MEAN CORPUSCULAR HEMOGLOBIN 30.8 pg (28.0-32.0); MEAN CORPUSCULAR HGB CONC 33.7 g/dL (31.0-37.0); MEAN CORPUSCULAR VOLUME 91.5 fL (81.0-99.0); MEAN PLATELET VOLUME 8.4 fl (7.4-10.4); MONOCYTES % 5.1 % (2.0-8.0); NEUTROPHILS % 61.1 % (40.0-76.0); PLATELET 336 x1000/uL (130-400); RED BLOOD CELL COUNT 3.34 mill/uL (4.2-5.4); RED CELL DISTRIBUTION WIDTH 15.1 % (11.6-14.6); WHITE BLOOD COUNT 7.4 x1000/uL (4.5-11.0)
[2024-06-01 08:00] VITALS: BP 152/83; PULSE 100; RESP 18; TEMP 36.22512; O2SAT 99
[2024-06-01] MEDS ORDERED: LANTUSUD SUBCUT (10:32)
[2024-06-01 12:00] VITALS: BP 158/90; PULSE 103; RESP 18; TEMP 36.114; O2SAT 100
[2024-06-01 16:00] VITALS: BP 161/88; PULSE 99; RESP 18; TEMP 36.33624; O2SAT 100
[2024-06-01 20:00] VITALS: BP 156/91; PULSE 103; RESP 18; TEMP 36.16956; O2SAT 100
[2024-06-01] MEDS: ATORVASTATIN CALCIUM 20MG TABLET PO SCH (20:56)
[2024-06-02] VITALS (7 sets, daily range): BP systolic 149–187; BP diastolic 85–109; PULSE 102–119; RESP 19–20; TEMP 36.16956–36.83628; O2SAT 97–100
[2024-06-03] VITALS: BP 162/94; PULSE 113; RESP 20; TEMP 36.72516; O2SAT 98
[2024-06-03 04:00] VITALS: BP 164/87; PULSE 101; RESP 20; TEMP 36.6696; O2SAT 99
[2024-06-03 08:00] VITALS: BP 150/88; PULSE 112; RESP 20; TEMP 36.22512; O2SAT 100
[2024-06-03] MEDS: FAMOTIDINE 20MG/2ML VIAL IV SCH (09:00)
[2024-06-03] MEDS ORDERED: HYDROCODONE/ACETAMINOPHEN 5/325MG TABLET PO PRN (10:30)
[2024-06-03 12:00] VITALS: BP 179/100; PULSE 106; RESP 20; TEMP 36.33624; O2SAT 100
[2024-06-03] MEDS: CLONAZEPAM 0.5MG TABLET ONE (13:07)
[2024-06-03] MEDS: HYDROCODONE/ACETAMINOPHEN 5/325MG TABLET ONE (13:14)
[2024-06-03] MEDS: CLONIDINE 0.2MG TABLET PO NR (13:21)
[2024-06-03 16:00] VITALS: BP 105/66; PULSE 87; RESP 18; TEMP 35.39172; O2SAT 100
[2024-06-03] MEDS ORDERED: NALOXONE HCL 0.4MG/ML VIAL IV PRN (18:00)
== END 2024-06-03 20:50 | disposition home or self-care (01) | DRG 420 ==
LOC: ER 15:08 → MICUNO 20:19 → 7EST 05-31 22:40
PROVIDERS: ADMIT Internal Medicine; ATTEND Internal Medicine
PROC: 02HV33Z Insertion of Infusion Device into Superior Vena Cava, Percutaneous Approach (ICD-10-PCS; principal; 2024-05-31)
DX: E11.10 Type 2 diabetes mellitus with ketoacidosis without coma (principal); J96.01 Acute respiratory failure with hypoxia; N17.9 Acute kidney failure, unspecified; E11.43 Type 2 diabetes mellitus with diabetic autonomic (poly)neuropathy; J44.9 Chronic obstructive pulmonary disease, unspecified; N18.9 Chronic kidney disease, unspecified; E11.22 Type 2 diabetes mellitus with diabetic chronic kidney disease; I12.9 Hypertensive chronic kidney disease with stage 1 through stage 4 chronic kidney disease, or unspecified chronic kidney disease; E87.5 Hyperkalemia; K31.84 Gastroparesis; E78.5 Hyperlipidemia, unspecified; Z91.199 Patient's noncompliance with other medical treatment and regimen due to unspecified reason; Z82.49 Family history of ischemic heart disease and other diseases of the circulatory system; Z88.5 Allergy status to narcotic agent; S59.801A Other specified injuries of right elbow, initial encounter; X58.XXXA Exposure to other specified factors, initial encounter; Y93.89 Activity, other specified; Y92.89 Other specified places as the place of occurrence of the external cause; Y99.8 Other external cause status
CPT/HCPCS: 36415; 36573; 36600; 71045; 80048; 80051; 80076; 81003; 82010; 82375; 82805; 82962; 83036; 83735; 83930; 84100; 85025; 93005; 99291; C1725; C1892; J0360; J1815; J2405; J2470; J2765; J3490; J7030; J7042; J7050

== ENCOUNTER 2024-08-05 17:26 | Emergency (ER) | payer OTHER ==
[~2024-08-05] VITALS: Ht 160 cm; Wt 48.0 kg
[~2024-08-05 17:26] MED LIST changes: -AMLO5TAB88 MT; +AMLO5TAB88 PO; -BETH5TAB10 PO; +CLOP-31 PO; -DOCU-155 MT; +FURO-151 MT; -FURO20TA4 PO; +INSU100I13 SQ; -INSU100I26 SUBCUT; +INSU100I28 SQ; -INSU100V43 SQ; -LANTUSUD SUBCUT; +LIP40 MT; -LIP40 PO; -METO2.5T2 PO; -MULT-1318 PO
[2024-08-05 17:28] VITALS: O2SAT 98
[2024-08-05] MEDS: LACTATED RINGERS 1,000 ML IV SCH ×2 (18:27)
[2024-08-05 18:37] LABS: CLARITY URINE CLOUDY (CLEAR); COLOR URINE YELLOW (YELLOW); GLUCOSE URINE 3+ (NEGATIVE); KETONES URINE 1+ (NEGATIVE); LEUKOCYTE ESTERASE URINE 1+ (NEGATIVE); NITRITE URINE POSITIVE (NEGATIVE); OCCULT BLOOD URINE TRACE (NEGATIVE); PH URINE 5.5 (4.5-8.0); PROTEIN URINE TRACE (NEGATIVE); SPECIFIC GRAVITY URINE 1.027 (1.005-1.030); UROBILINOGEN URINE 0.2 E.U./dL (0.2-1.0)
[2024-08-05 18:54] LABS: BACTERIA URINE 1+; SQUAMOUS EPITHELIAL CELL URINE 1+ /lpf (RARE/1+); YEAST URINE 4+
[2024-08-05 18:55] LABS: EOSINOPHILS % 2.5 % (0.0-5.0); HEMATOCRIT. 34.1 % (36.0-48.0); HEMOGLOBIN. 11.2 g/dL (12.0-16.0); MEAN CORPUSCULAR HEMOGLOBIN 29.9 pg (28.0-32.0); MEAN CORPUSCULAR HGB CONC 32.9 g/dL (31.0-37.0); MEAN PLATELET VOLUME 9.1 fl (7.4-10.4); MONOCYTES % 6.6 % (2.0-8.0); NEUTROPHILS % 61.9 % (40.0-76.0); PLATELET 305 x1000/uL (130-400); RED BLOOD CELL COUNT 3.75 mill/uL (4.2-5.4); RED CELL DISTRIBUTION WIDTH 14.4 % (11.6-14.6); WHITE BLOOD COUNT 6.1 x1000/uL (4.5-11.0)
[2024-08-05 19:01] LABS: CHLORIDE 103 mEq/L (98-107); POTASSIUM 4.5 mEq/L (3.5-5.1); SODIUM 136 mEq/L (136-145)
[2024-08-05 19:03] LABS: CALCIUM 9.1 mg/dL (8.7-10.4); CARBON DIOXIDE 24 mEq/L (21-32)
[2024-08-05 19:08] LABS: CREATININE 2.4 mg/dL (0.6-1.0); UREA NITROGEN BLOOD 45 mg/dL (9-23)
[2024-08-05 19:09] LABS: ALANINE AMINOTRANSFERASE 8 IU/L (10-49)
[2024-08-05 19:10] LABS: ALBUMIN 3.7 g/dL (3.2-4.8); ASPARTATE AMINOTRANSFERASE 12 IU/L (<34); BILIRUBIN TOTAL 0.3 mg/dL (0.1-1.0); PHOSPHORUS 3.7 mg/dL (2.5-4.9); PROTEIN TOTAL 6.7 g/dL (6.0-8.3)
[2024-08-05 19:13] LABS: GLUCOSE 443 mg/dL (70-105)
[2024-08-05] MEDS: CEFTRIAXONE 1GM/50ML 50 ML IV ONE (19:16)
[2024-08-05 19:25] LABS: BETA HYDROXYBUTYRATE 0.6 mMol/L (0.0-0.3)
[2024-08-05] MEDS: HYDROMORPHONE HCL/PF 2MG/ML INJ IV ONE (19:34)
[2024-08-05 21:25] VITALS: BP 124/80; PULSE 88; RESP 12; TEMP 36.39180; O2SAT 100
== END 2024-08-05 22:27 | disposition short-term general hospital (02) ==
LOC: ER 17:26
DX: N39.0 Urinary tract infection, site not specified (principal); E11.65 Type 2 diabetes mellitus with hyperglycemia; I10 Essential (primary) hypertension; E78.00 Pure hypercholesterolemia, unspecified; N17.9 Acute kidney failure, unspecified; Z79.82 Long term (current) use of aspirin; Z88.5 Allergy status to narcotic agent; Z79.899 Other long term (current) drug therapy; Z79.4 Long term (current) use of insulin
CPT/HCPCS: 80053; 81003; 82010; 82962; 83605; 83735; 84100; 85025; 87040; 87086; 87186; 87077; 36415; 84145; 71045; 96361; 96365; 96366; 96375; 99285; J0696; J1171; Z7610 ×2

== ENCOUNTER 2024-11-13 10:46 | Inpatient (IN) | payer OTHER ==
[2024-11-13] VITALS (30 sets, daily range): BP systolic 96–191; BP diastolic 45–99; PULSE 90–126; RESP 10–27; TEMP 36.8–37.2; O2SAT 82–100
[~2024-11-13] VITALS: Ht 241.3 cm; Wt 58.1 kg
[~2024-11-13 10:46] MED LIST changes: +ASPI-1160 PO; +DOCU-422 PO; +GABA-1180 PO; +GABA-529 PO; -GABA-532 PO; -INSU100I28 SQ; +LANTUSUD SUBCUT; -LEVO250T74 MT; -LOSA100T33 MT; +LOSA100T33 PO; -TAMS-11 PO
[2024-11-13] MEDS: SODIUM CHLORIDE 0.9% 1,000 ML IV ONE (11:25)
[2024-11-13 11:26] LABS: BG BASE EXCESS -3.4 mmol/L (-2.0-3.0); BG CARBOXYHEMOGLOBIN 0.1 % (0.5-1.5); BG DEOXYHEMOGLOBIN 3.2 % (0.0-5.0); BG METHEMOGLOBIN 0.3 % (0.5-1.5); BG OXYGEN SATURATION 96.8 % (94.0-98.0); BG OXYHEMOGLOBIN 96.4 % (94.0-98.0); BG PCO2 41.4 mmHg (32.0-45.0); BG PH 7.344 (7.350-7.450); BG PO2 91.3 mmHg (83.0-108.0); BG SAMPLE SITE RIGHT RADIAL; BG TOTAL HEMOGLOBIN 10.7 g/dL (12.0-16.0); BG VENT MODE ROOM AIR
[2024-11-13 11:28] LABS: BASOPHILS % 0.7 % (0.0-2.0); EOSINOPHILS % 2.8 % (0.0-5.0); HEMATOCRIT. 31.7 % (36.0-48.0); HEMOGLOBIN. 9.7 g/dL (12.0-16.0); MEAN CORPUSCULAR HEMOGLOBIN 27.9 pg (28.0-32.0); MEAN CORPUSCULAR HGB CONC 30.5 g/dL (31.0-37.0); MEAN CORPUSCULAR VOLUME 91.5 fL (81.0-99.0); MEAN PLATELET VOLUME 8.4 fl (7.4-10.4); MONOCYTES % 3.1 % (2.0-8.0); NEUTROPHILS % 73.4 % (40.0-76.0); PLATELET 449 x1000/uL (130-400); RED BLOOD CELL COUNT 3.47 mill/uL (4.2-5.4); RED CELL DISTRIBUTION WIDTH 16.6 % (11.6-14.6); WHITE BLOOD COUNT 7.6 x1000/uL (4.5-11.0)
[2024-11-13 11:31] LABS: CHLORIDE 103 mEq/L (98-107); POTASSIUM 5.5 mEq/L (3.5-5.1); SODIUM 136 mEq/L (136-145)
[2024-11-13 11:32] LABS: CARBON DIOXIDE 25 mEq/L (21-32)
[2024-11-13 11:33] LABS: CALCIUM 9.7 mg/dL (8.7-10.4)
[2024-11-13 11:38] LABS: UREA NITROGEN BLOOD 44 mg/dL (9-23)
[2024-11-13 11:39] LABS: ALANINE AMINOTRANSFERASE 12 IU/L (10-49); ALBUMIN 4.2 g/dL (3.2-4.8); ASPARTATE AMINOTRANSFERASE 16 IU/L (<34)
[2024-11-13 11:40] LABS: BILIRUBIN TOTAL 0.3 mg/dL (0.1-1.0); PROTEIN TOTAL 7.9 g/dL (6.0-8.3)
[2024-11-13] MEDS: SODIUM CHLORIDE 0.9% (SEPSIS BOLUS) IV ONE (11:44)
[2024-11-13] MEDS: PIPERACILLIN/TAZO 3.375G/50ML 50 ML IV ONE (11:44)
[2024-11-13 11:47] LABS: INR 0.9; PROTHROMBIN TIME 10.2 sec (9.6-11.0)
[2024-11-13 12:10] LABS: BILIRUBIN DIRECT < 0.1 mg/dL (<=3.0); CREATININE 1.9 mg/dL (0.6-1.0)
[2024-11-13 12:14] LABS: TROPONIN I HIGH SENSITIVITY 40 ng/L (3.0-34)
[2024-11-13 12:15] LABS: GLUCOSE 704 mg/dL (70-105)
[2024-11-13] MEDS: VANCOMYCIN 1G PREMIX 200 ML IV ONE (12:27)
[2024-11-13] MEDS ORDERED: KCL 20MEQ/100ML PREMIX 100 ML IV PRN ×2 (12:30→15:15)
[2024-11-13] MEDS: DEXT 5%/0.9% NACL 1,000 ML IV SCH ×2 (12:30→18:04)
[2024-11-13] MEDS ORDERED: MAGNESIUM 2 G PREMIX 50 ML IV PRN (12:30)
[2024-11-13] MEDS ORDERED: SODIUM PHOSPHATE 15 MMOL in SODIUM CHLORIDE 0.9% 245 ML IV PRN ×2 (12:30→15:15)
[2024-11-13] MEDS ORDERED: DEXTROSE 50% WATER 50ML SYRINGE IV PRN ×2 (12:30→15:15)
[2024-11-13] MEDS ORDERED: INSULIN REGULAR (DRIP) 100 UNITS in SODIUM CHLORIDE 0.9% 99 ML IV SCH (12:30)
[2024-11-13] MEDS ORDERED: POTASSIUM CHLORIDE 40 MEQ in SODIUM CHLORIDE 0.9% 230 ML IV PRN ×2 (12:30→15:15)
[2024-11-13] MEDS: HYDRALAZINE 20MG/ML VIAL IV ONE (13:01)
[2024-11-13] MEDS: SODIUM CHLORIDE 0.9% 1,000 ML IV SCH ×2 (13:01→16:40)
[2024-11-13] MEDS: BLOOD SUGAR DIAGNOSTIC STRIP TEST PRN (13:01)
[2024-11-13] MEDS: BLOOD SUGAR DIAGNOSTIC STRIP TEST SCH ×2 (13:02→16:56)
[2024-11-13 13:05] LABS: CHLORIDE 104 mEq/L (98-107); POTASSIUM 5.4 mEq/L (3.5-5.1); SODIUM 137 mEq/L (136-145)
[2024-11-13 13:06] LABS: CARBON DIOXIDE 24 mEq/L (21-32)
[2024-11-13 13:13] LABS: PHOSPHORUS 3.6 mg/dL (2.5-4.9)
[2024-11-13] MEDS: INSULIN REGULAR 100U/100ML PMX 100 ML IV SCH ×2 (13:15→16:40)
[2024-11-13] MEDS: LABETALOL 5MG/ML 4ML INJ IV NR (15:05)
[2024-11-13] MEDS ORDERED: ACETAMINOPHEN 325MG TABLET PO PRN ×2 (15:15)
[2024-11-13] MEDS ORDERED: GUAIFENESIN 200MG/10ML SUGAR FREE UDC PO PRN (15:15)
[2024-11-13] MEDS ORDERED: DIPHENHYDRAMINE 50MG/ML VIAL IV PRN (15:15)
[2024-11-13] MEDS ORDERED: BLOOD SUGAR DIAGNOSTIC STRIP TEST PRN (15:15)
[2024-11-13] MEDS ORDERED: ONDANSETRON HCL 4MG/2ML INJ IV PRN (15:15)
[2024-11-13] MEDS ORDERED: DOCUSATE SODIUM 100MG CAPSULE PO PRN (15:15)
[2024-11-13] MEDS ORDERED: MAGNESIUM/ALUMINUM HYDROXIDE/SIMETHICONE 30ML UDC PO PRN (15:15)
[2024-11-13] MEDS ORDERED: IPRATROPIUM/ALBUTEROL 0.5-3(2.5)MG/3ML NEB HHN PRN (15:15)
[2024-11-13] MEDS ORDERED: NA PHOS,M-B/NA PHOS,DI-BA ENEMA 118ML PR PRN (15:15)
[2024-11-13] MEDS ORDERED: NALOXONE HCL 0.4MG/ML VIAL IV PRN (15:45)
[2024-11-13 15:54] LABS: FOLIC ACID (FOLATE) SERUM 13.85 ng/mL (>5.38)
[2024-11-13 15:55] LABS: VITAMIN B12 SERUM 697 pg/mL (211-911)
[2024-11-13 16:14] LABS: IRON 80 ug/dL (50-170)
[2024-11-13 16:16] LABS: TOTAL IRON BINDING CAPACITY 373 ug/dl (250-425)
[2024-11-13] MEDS: PANTOPRAZOLE SODIUM 40 MG/VIAL IV NR (16:35)
[2024-11-13] MEDS: HYDROCODONE/ACETAMINOPHEN 5/325MG TABLET PO PRN (16:35)
[2024-11-13] MEDS: INSULIN REGULAR (HUMULIN R) 1000UNITS/10ML VIAL IV NR (16:36)
[2024-11-13 16:55] LABS: CARBON DIOXIDE 18 mEq/L (21-32); CHLORIDE 118 mEq/L (98-107); POTASSIUM 3.5 mEq/L (3.5-5.1)
[2024-11-13 16:56] LABS: SODIUM 148 mEq/L (136-145)
[2024-11-13 17:01] LABS: UREA NITROGEN BLOOD 35 mg/dL (9-23)
[2024-11-13 17:03] LABS: PHOSPHORUS 2.1 mg/dL (2.5-4.9)
[2024-11-13 17:04] LABS: CREATININE 1.3 mg/dL (0.6-1.0); GLUCOSE 417 mg/dL (70-105)
[2024-11-13] MEDS: MAGNESIUM 2 G PREMIX 50 ML IV PRN (18:16)
[2024-11-13 18:57] LABS: BG BASE EXCESS -5.6 mmol/L (-2.0-3.0); BG CARBOXYHEMOGLOBIN 0.1 % (0.5-1.5); BG FRACTION INSPIRED OXYGEN 21; BG HCO3 ACT 19.3 mmol/L (21.0-28.0); BG METHEMOGLOBIN 0.3 % (0.5-1.5); BG OXYHEMOGLOBIN 97.6 % (94.0-98.0); BG PCO2 34.9 mmHg (32.0-45.0); BG PO2 110.8 mmHg (83.0-108.0); BG SAMPLE SITE RIGHT BRACHIAL; BG TOTAL HEMOGLOBIN 8.3 g/dL (12.0-16.0); BG VENT MODE ROOM AIR
[2024-11-13 19:45] LABS: CLARITY URINE CLOUDY (CLEAR); COLOR URINE YELLOW (YELLOW); GLUCOSE URINE 3+ (NEGATIVE); KETONES URINE TRACE (NEGATIVE); LEUKOCYTE ESTERASE URINE 2+ (NEGATIVE); NITRITE URINE NEGATIVE (NEGATIVE); OCCULT BLOOD URINE TRACE (NEGATIVE); PROTEIN URINE 1+ (NEGATIVE); SPECIFIC GRAVITY URINE 1.021 (1.005-1.030); UROBILINOGEN URINE 0.2 E.U./dL (0.2-1.0)
[2024-11-13 20:09] LABS: WBC URINE 15-25 /hpf (0-2)
[2024-11-13 20:10] LABS: BACTERIA URINE TRACE; SQUAMOUS EPITHELIAL CELL URINE FEW /lpf (RARE/1+); YEAST URINE 4+
[2024-11-13 20:17] LABS: *AMPHETAMINES SCREEN URINE NEGATIVE (NEGATIVE); *BARBITURATES SCREEN URINE NEGATIVE (NEGATIVE); *BENZODIAZEPINES SCREEN URINE NEGATIVE (NEGATIVE); *COCAINE SCREEN URINE NEGATIVE (NEGATIVE); METHADONE URINE SCREEN NEGATIVE (NEGATIVE); OPIATES URINE SCREEN NEGATIVE (NEGATIVE); PHENCYCLIDINE URINE SCREEN NEGATIVE (NEGATIVE)
[2024-11-13 20:18] LABS: CANNABINOID URINE SCREEN NEGATIVE (NEGATIVE); ECSTASY MDMA SCREEN URINE NEGATIVE (NEGATIVE)
[2024-11-13 21:08] LABS: CHLORIDE 115 mEq/L (98-107); POTASSIUM 4.4 mEq/L (3.5-5.1); SODIUM 148 mEq/L (136-145)
[2024-11-13 21:09] LABS: CARBON DIOXIDE 24 mEq/L (21-32)
[2024-11-13 21:14] LABS: CREATININE 1.6 mg/dL (0.6-1.0); GLUCOSE 129 mg/dL (70-105); UREA NITROGEN BLOOD 41 mg/dL (9-23)
[2024-11-13 21:16] LABS: PHOSPHORUS 2.6 mg/dL (2.5-4.9)
[2024-11-13] MEDS: ATORVASTATIN CALCIUM 40MG TABLET PO SCH (21:26)
[2024-11-13] MEDS: GABAPENTIN 300MG CAPSULE PO SCH (21:26)
[2024-11-13] MEDS: DOCUSATE SODIUM 100MG CAPSULE PO SCH (21:26)
[2024-11-14] VITALS (25 sets, daily range): BP systolic 107–174; BP diastolic 60–94; PULSE 86–102; RESP 9–31; TEMP 36.7–37.2; O2SAT 97–100
[2024-11-14 01:23] LABS: CHLORIDE 113 mEq/L (98-107); POTASSIUM 4.4 mEq/L (3.5-5.1); SODIUM 145 mEq/L (136-145)
[2024-11-14 01:24] LABS: CARBON DIOXIDE 23 mEq/L (21-32)
[2024-11-14 01:25] LABS: CALCIUM 8.8 mg/dL (8.7-10.4)
[2024-11-14 01:29] LABS: CREATININE 1.5 mg/dL (0.6-1.0); GLUCOSE 265 mg/dL (70-105)
[2024-11-14 01:30] LABS: UREA NITROGEN BLOOD 36 mg/dL (9-23)
[2024-11-14 01:32] LABS: PHOSPHORUS 3.3 mg/dL (2.5-4.9)
[2024-11-14 05:54] LABS: POTASSIUM 4.2 mEq/L (3.5-5.1)
[2024-11-14 05:55] LABS: CALCIUM 8.8 mg/dL (8.7-10.4)
[2024-11-14 06:00] LABS: CREATININE 1.4 mg/dL (0.6-1.0)
[2024-11-14] MEDS: DEXT 5%/0.45% NACL 1000ML 1,000 ML IV SCH (06:52)
[2024-11-14 08:07] LABS: CALCIUM 8.3 mg/dL (8.7-10.4)
[2024-11-14 08:11] LABS: CREATININE 1.3 mg/dL (0.6-1.0)
[2024-11-14] MEDS ORDERED: INSULIN REGULAR (HUMULIN R) 1000UNITS/10ML VIAL SUBCUT SCH (08:38)
[2024-11-14] MEDS ORDERED: DEXTROSE 50% WATER 50ML SYRINGE IV PRN (09:00)
[2024-11-14] MEDS: AMLODIPINE 5MG TABLET PO SCH (09:55)
[2024-11-14] MEDS: ASPIRIN 81MG EC TABLET PO SCH (09:55)
[2024-11-14] MEDS: PANTOPRAZOLE SODIUM 40 MG/VIAL IV SCH (09:55)
[2024-11-14] MEDS: LOSARTAN 100 MG TABLET PO SCH (09:56)
[2024-11-14] MEDS: CLOPIDOGREL 75MG TABLET PO SCH (09:56)
[2024-11-14] MEDS: LABETALOL HCL 200MG TABLET PO SCH (09:56)
[2024-11-14] MEDS: BLOOD SUGAR DIAGNOSTIC STRIP TEST SCH (13:00)
[2024-11-14] MEDS: INSULIN LISPRO 100 UNITS/ML SUBCUT SCH ×2 (13:07→13:08)
[2024-11-14] MEDS: HYDRALAZINE 20MG/ML VIAL IV PRN (13:14)
[2024-11-14] MEDS ORDERED: GABAPENTIN 300MG CAPSULE PO PRN (13:45)
[2024-11-14] MEDS: CLONIDINE 0.1MG TABLET PO PRN (13:52)
[2024-11-14] MEDS: CEFTRIAXONE 1GM/50ML 50 ML IV SCH (15:46)
[2024-11-14] MEDS: INSULIN GLARGINE 100 UNITS/ML SUBCUT SCH (21:39)
[2024-11-15] VITALS: BP 143/74; PULSE 100; RESP 18; TEMP 36.6; O2SAT 100
[2024-11-15 04:00] VITALS: BP 193/99; PULSE 107; RESP 19; TEMP 36.8; O2SAT 100
[2024-11-15 08:00] VITALS: BP 158/81; PULSE 119; RESP 20; TEMP 36.6; O2SAT 98
[2024-11-15] MEDS ORDERED: DEXTROSE 5% WATER 1,000 ML IV SCH (08:30)
[2024-11-15] MEDS: INSULIN LISPRO 100 UNITS/ML SUBCUT SCH (09:11)
[2024-11-15] MEDS: AMLODIPINE 10MG TABLET PO SCH (09:13)
[2024-11-15] MEDS: HYDRALAZINE 20MG/ML VIAL IV NR (09:49)
[2024-11-15] MEDS: FLUCONAZOLE 100MG TABLET PO SCH (09:50)
[2024-11-15] MEDS: LACTULOSE 20G/30ML UDC PO NR (09:51)
[2024-11-15 12:00] VITALS: BP 122/65; PULSE 94; RESP 20; TEMP 36.7; O2SAT 97
[2024-11-15] MEDS ORDERED: AMLO10TA80 PO (12:12)
[2024-11-15] MEDS ORDERED: INSLIS SUBCUT (12:12)
[2024-11-15] MEDS ORDERED: LANTUSUD SUBCUT (12:12)
[2024-11-15] MEDS ORDERED: LEVO-65 PO (12:58)
[2024-11-15] MEDS: HYDRALAZINE HCL 10MG TABLET PO SCH (14:58)
[2024-11-15] MEDS: CEFTRIAXONE 1GM/50ML 50 ML IV SCH (14:58)
[2024-11-15] MEDS: INSULIN GLARGINE 100 UNITS/ML SUBCUT SCH (15:00)
[2024-11-15 16:00] VITALS: BP 109/58; PULSE 99; RESP 20; TEMP 36.6; O2SAT 97
[2024-11-15 18:57] VITALS: BP 162/71; PULSE 77; TEMP 97.2; O2SAT 98
[2024-11-15] MEDS ORDERED: INSULIN GLARGINE 100 UNITS/ML SUBCUT SCH (22:00)
== END 2024-11-15 20:30 | disposition home or self-care (01) | DRG 420 ==
LOC: ER 10:46 → EDBEDREQSVC 12:37 → EDBEDREQTM 12:37 → EDBEDREQ 12:37 → CVICU 14:30 → 6WST 11-14 14:47
PROVIDERS: ADMIT Internal Medicine; ATTEND Internal Medicine
DX: E11.00 Type 2 diabetes mellitus with hyperosmolarity without nonketotic hyperglycemic-hyperosmolar coma (NKHHC) (principal); I21.A1 Myocardial infarction type 2; N17.9 Acute kidney failure, unspecified; R78.81 Bacteremia; B37.49 Other urogenital candidiasis; E87.1 Hypo-osmolality and hyponatremia; D64.9 Anemia, unspecified; B96.20 Unspecified Escherichia coli [E. coli] as the cause of diseases classified elsewhere; E11.22 Type 2 diabetes mellitus with diabetic chronic kidney disease; E87.5 Hyperkalemia; E78.00 Pure hypercholesterolemia, unspecified; E11.43 Type 2 diabetes mellitus with diabetic autonomic (poly)neuropathy; I12.9 Hypertensive chronic kidney disease with stage 1 through stage 4 chronic kidney disease, or unspecified chronic kidney disease; K31.84 Gastroparesis; J44.9 Chronic obstructive pulmonary disease, unspecified; N18.9 Chronic kidney disease, unspecified; I16.1 Hypertensive emergency; I25.10 Atherosclerotic heart disease of native coronary artery without angina pectoris; N31.9 Neuromuscular dysfunction of bladder, unspecified; Z79.4 Long term (current) use of insulin; Z79.82 Long term (current) use of aspirin; Z82.49 Family history of ischemic heart disease and other diseases of the circulatory system; Z95.5 Presence of coronary angioplasty implant and graft; Z99.3 Dependence on wheelchair
CPT/HCPCS: 36415; 36600; 71045; 80048; 80051; 80076; 80305; 81003; 82010; 82375; 82607; 82746; 82805; 82962; 83540; 83550; 83605; 83735; 83930; 84100; 84145; 84484; 85025; 87106; 93005; 99291; A4606; J0360; J0696; J1815; J2470; J2543; J3370; J3475; J3480; J3490; J7030; J7042; J7070